=== PATIENT | male | born 1970 | race Caucasian/White ===

== ENCOUNTER 2016-12-03 23:11 | Emergency (ER) | payer MEDICAID ==
[2016-12-03 23:22] VITALS: BP 111/76; BMI 22.1
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
[2016-12-03] MEDS ORDERED: DUONEB 0.5 MG/3 MG NEB ONE (23:32)
[2016-12-03] MEDS ORDERED: SOLU-Medrol 125 MG VIAL IVP ONE (23:32)
[2016-12-03] MEDS ORDERED: NS 1000 ML 1,000 ML ONE (23:33)
[2016-12-03] MEDS ORDERED: SOLU-Medrol 125 MG VIAL ONE (23:35)
[2016-12-03] MEDS ORDERED: DUONEB 0.5 MG/3 MG ONE (23:37)
[2016-12-03] MEDS ORDERED: NS 1000 ML 1,000 ML IV SCH (23:45)
[2016-12-04] LABS: BLOOD UREA NITROGEN 9 mg/dL (7-18); CALCIUM 8.3 mg/dL (8.5-10.1); CARBON DIOXIDE 23.9 mmol/L (21-32); CHLORIDE 107 mmol/L (98-107); CREATININE 1.38 mg/dL (0.70-1.30); SODIUM 140 mmol/L (136-145); eGFR BLACK RACES > 60 (>60); eGFR NON BLACK RACES 59 (>60)
[2016-12-04 00:10] LABS: EOSINOPHILS # (AUTO) 0.3 x10^3/uL (0.0-0.2); HEMOGLOBIN 15.7 g/dL (13.5-18.0); LYMPHOCYTES # (AUTO) 1.8 X10^3/uL (1.3-2.9); MONOCYTES # (AUTO) 0.6 x10^3/uL (0.3-0.8); MONOCYTES % (AUTO) 12.9 % (0.0-13.0)
[2016-12-04 00:23] LABS: BASOPHILS # (AUTO) 0.1 X10^3/uL (0.0-0.1); BASOPHILS % (AUTO) 1.2 % (0.2-1.0); EOSINOPHILS % (AUTO) 7.2 % (0.9-2.9); LYMPHOCYTES % (AUTO) 39.9 % (21.0-51.0); MEAN CORPUSCULAR HEMOGLOBIN 31.3 pg (27.0-34.0); MEAN CORPUSCULAR VOLUME 89.5 fL (80.0-100.0); MEAN PLATELET VOLUME 8.7 fL (7.4-11.0); NEUTROPHILS # (AUTO) 1.8 x10^3/uL (2.2-4.8); NEUTROPHILS % (AUTO) 38.8 % (42.0-75.0); PLATELET COUNT 129 X10^3/uL (150.0-450.0); RED BLOOD COUNT 5.02 X10^6/uL (4.7-6.0); RED CELL DISTRIBUTION WIDTH 13.3 % (11.6-16.5); WHITE BLOOD COUNT 4.6 X10^3/uL (3.6-10.0)
[2016-12-04 00:36] LABS: PLATELET MORPHOLOGY COMMENT NORMAL (NORMAL)
--- NOTE | 2016-12-04 00:38 | RAD ---
Chest, one view Indication: Shortness of breath. Comparison: None available Findings: There is left lung volume loss with mild eventration of the hemidiaphragm. The heart size i s normal. No acute infiltrates or large effusion identified. Impression: No acute chest process. Chronic changes of the left lung. Reported By:
[2016-12-04] MEDS ORDERED: TORADOL 30 MG VIAL IVP ONE (01:16)
[2016-12-04] MEDS ORDERED: TORADOL 30 MG VIAL ONE (01:17)
== END 2016-12-04 01:30 | disposition home or self-care (01) ==
LOC: ER 23:11
DX: F41.8 Other specified anxiety disorders (principal); H60.313 Diffuse otitis externa, bilateral
CPT/HCPCS: 36415; 71010; 80048; 85025; 94640; 96365; 96367; 96374; 96375; 99283; A4222; J1885; J2930; J7620

== ENCOUNTER 2017-01-26 19:58 | Emergency (ER) | payer MEDICAID ==
[2017-01-26 20:16] VITALS: BP 113/75; BMI 22.8
[2017-01-26] MEDS ORDERED: KEFLEX CAP 500 MG PO ONE ×2 (21:23→21:31)
[2017-01-26] MEDS ORDERED: BACTRIM DS TAB PO ONE ×2 (21:23→21:32)
[2017-01-26] MEDS ORDERED: MOTRIN TAB 800 MG PO STA (21:24)
--- NOTE | 2017-01-26 21:29 | DR.GENAD ---
HPI - PCP Primary Care Physician: nfd - Complaint/Symptoms Chief Complaint Doctors Comments: Patient is complainig of nasal congestion, frontal headaches that goes and comes and his ears being sore with sores on his right ear for 3-4 weeks. states he was in the ER with ear problems a month ago and was given ear drops but they did not resolve the pain. states he goes to the HIV clinic in [place] and is taking Bactrim twice daily but ran out recently. He denies cold, cough, fever or chills. States he has a sore on his scrotums with pus coming out the lesion when he squeeze it. States he is taking Reyataz, Retinovir, and Truvada at the HIV clinic. States the pain is 9 of 10. Chief Complaint:: " headache that goes and comes back on right side. Ears hurt on both side and have when cleaned with q-tip there is puss on stick. Neck hurts constantly. Throat and inside mouth hurts on right side. Spot on left testicle - Nurses notes reviewed Nurses Notes Review: Yes - Source History Provided: Patient - Mode of Arrival Mode of Arrival: Ambulatory - Timing Onset of Chief Complaint: 01/25/17 Came on: Gradually - Duration Duration: Constant How lon Duration: Weeks - Location Location: right ear pain, scrotal pain - Severity Severity: Moderate - Modifying Factors Worsens:: movement Improves:: nothing PMH - PMH Past Medical History: Yes Past Medical History: Angina, Anxiety, Asthma, COPD, Depression, Migraines, Headaches, Hypertension Past Medical History Comment: Hep C Past Surgical History: Yes Surgical History: Other Past Surgical History Comment: tendon repaired - Family History History of Family Medical Conditions: Yes Family Medical History: Diabetes Mellitus, Cancer, [place] - Social History Does patient currently use any type of tobacco product: Yes Have you used tobacco products in the last 12 months: Yes Type of Tobacco Use: Cigarettes How many years tobacco product used: 15 Does any household member use tobacco: Yes Alcohol Use: None Do you use any recreational Drugs:: No Lives With: Alone Lives Where: Home - infectious screening In the last 2 months have you had wt loss of >10#?: YES Have you had fever, night sweats or hemotysis?: Yes Have you traveled outside the country in the last 6 months?: No Isolation: Contact ROS - Review of Systems Constitutional: No Symptoms Reported, Loss of Appetite. negative: See HPI, Chills, Diaphoresis, Fever, Malaise, Weakness, Irritable, Fatigue, Other Eyes: No Symptoms Reported, Eye Pain (right ear pain with cracking ear lobes). negative: See HPI, Blurred Vision, Tearing, Discharge, Photophobia, Diplopia, Other ENTM: No Symptoms Reported, Ear Pain, Nose Discharge, Nose Congestion Respiratoy: No Symptoms Reported. negative: See HPI, Productive Cough, Non- Productive Cough, Moist Cough, Dry Cough, Hacking Cough, Barking Cough, Brassy Cough, Orthopnea, Short of Breath, Stridor, Wheezing, Hemoptysis, Other Cardiovascular: No Symptoms Reported. negative: See HPI, Chest Pain, Edema, Palpitations, Syncope, Cyanosis, Skin Mottling, Other Gastrointestinal/Abdominal: No Symptoms Reported. negative: See HPI, Abdominal Pain, Constipation, Diarrhea, Nausea, Vomiting, Food Intolerance, Other Genitourinary: No Symptoms Reported. negative: See HPI, Discharge, Dysuria, Frequency, Hematuria, Pain, Bleeding, Other Neurological: No Symptoms Reported Musculoskeletal: No Symptoms Reported Integumentary: No Symptoms Reported, Lesions (right scrotum with 1 cm pustular; right ear with cracks tragus), Rash. negative: See HPI, Change in Color, Change in Hair/Nails, Dryness, Lumps, Itching, Wound, Bruises, Juandice, Other Hematologic/Lymphatic: No Symptoms Reported. negative: See HPI, Anemia, Blood Clots, Easy Bleeding, Easy Bruising, Swollen Glands, Lymphadenopathy, Other Endocrine: No Symptoms Reported Psychiatric: No Symptoms Reported. negative: See HPI, Anxiety, Depression, Hallucinations, Excessive crying, Suicidal, Other PE - Vital Signs Vitals: Temperature 98.7 F Pulse Rate 100 Respiratory Rate 22 Blood Pressure [Right Arm] 118/75 Blood Pressure [Left Arm] 110/75 Blood Pressure 113/75 O2 Sat by Pulse Oximetry 94 - General Limitations: No Limitations General Appearance: Alert, In No Apparent Distress - Head Head Exam: Normal Inspection, Atraumatic, Normocephalic - Eyes Eye exam: Normal Appearance, PERRL, EOMI. negative: Scleral Icterus, Conjunctival Injection, Nystagmus, Miosis, Mydrasis, Periorbital Swelling, Periorbital Tenderness, Other - ENT ENT Exam: Normal Exam, Normal Oropharynx, Normal External Ear Exam, Mucous Membranes Moist, TM's Normal Bilaterally (right tympanic dull, erythematous left TM) External Ear Exam: Pain with Movement, External Tenderness. negative: Normal External Inspection (right external ear with cracking, erythema; ), Auricular Trauma, Mastoid Tenderness, Periauricular Adenopathy TM/Canal Exam: Left Erythema, Left Effusion, Right Normal, Bilateral Canal Tenderness Nose Exam: Normal Nose Exam, Sinus Tenderness. negative: Nasal Deviation, Crepitus, Septal Hematoma, Laceration, Abrasion, Other Mouth Exam: Normal Inspection Throat Exam: Normal Inspection - Neck Neck Exam: Normal Inspection, Full ROM, Trachea Midline - Chest Chest Inspection: Normal Inspection, Symmetric Chest Wall Rise - Respiratory Respiratory Exam: Normal Lung Sounds Bilat Respiratory Exam: Bilateral Clear to Auscultation - Cardiovascular Cardiovascular Exam: Regular Rate, Normal Rhythm, Normal Heart Sounds. negative : Bradycardia, Tachycardia, Irregular Rhythm, Systolic Murmur, Diastolic Murmur , Rubs, Gallop, Clicks, JVD, +S1, +S2, +S3, +S4, Other - Abdominal Exam Abdominal Exam: Normal Inspection, Normal Bowel Sounds, Soft. negative: Distention, Tenderness, Guarding, Rebound, Rigidity, Dimnished Bowel Sounds, Hyperactive Bowel Sounds, Hypoactive Bowel Sounds, Organomegaly, Trauma, Incision, Ascites, Mass, Bruit, Pulsatile Mass, Hernia, Other Abdominal Tenderness: negative: RUQ, RLQ, LUQ, LLQ, Epigastrium, Suprapubic, Diffuse, Mild, Moderate, Severe, Other - Extremities Extremities Exam: Normal Inspection, Full ROM, Normal Capillary Refill. negative: Tenderness, Edema, Joint Swelling, Calf Tenderness - Back Back Exam: Normal Inspection, Full ROM. negative: Tenderness, (R) CVA Tenderness, (L) CVA Tenderness, Muscle Spasm, Paraspinal Tenderness, Vertebral Tenderness, Rashes, (R) Sciatic Notch Tenderness, (L) Sciatic Notch Tendern, (R ) Straight Leg Raise, (L) Straight Leg Raise, Other - Neurologic Neurological Exam: Alert, Oriented X3, CN II-XII Intact, Normal Gait, Reflexes Normal - Psychiatric Psychiatric Exam: Normal Affect, Normal Mood. negative: Depressed, Agitated, Anxious, Flat Affect, Manic, Homicidal Ideation, Suicidal Ideation, Other - Skin Skin Exam: Warm, Dry, Intact, Normal Color, Erythema (scrotal lesion; right ear with erythema) - Diagnosis Discharge Problem: Cellulitis, scrotum, History of HIV infection Otitis media Qualifiers: Laterality: left Sinusitis, acute Qualifiers: Sinusitis location: frontal - Discharge Plan Disposition: 01 HOME, SELF-CARE Condition: Stable Prescriptions: Cephalexin [KEFLEX CAP 500 MG *] 500 mg PO TID #30 cap Ibuprofen [MOTRIN TAB 800 MG *] 800 mg PO BID PRN #60 tab PRN Reason: Pain/Inflammation Mupirocin Oint [BACTROBAN OINT 2%] 1 applic EXT BID #22 gm Sulfamethoxazole-Trimethoprim [BACTRIM DS TAB 800/160 MG *] 1 tab PO BID #20 tab - Follow ups/Referrals Follow ups/Referrals: Estrella HERNANDEZ [Primary Care Provider] - 3 days JESSEE YU [STAFF PHYSICIAN] - 3 days - Instructions Instructions: Cellulitis, Adult, [id number], Otitis Media, Adult, Easy-to- Read, Sinusitis, Adult, [id number]
[2017-01-26] MEDS ORDERED: MOTRIN TAB 800 MG PO ONE (21:31)
== END 2017-01-26 21:45 | disposition home or self-care (01) ==
LOC: ER 19:58
DX: N49.2 Inflammatory disorders of scrotum (principal); B20 Human immunodeficiency virus [HIV] disease; H66.92 Otitis media, unspecified, left ear; J01.80 Other acute sinusitis
CPT/HCPCS: 99282

== ENCOUNTER → 2017-02-06 | Outpatient (CLI) | payer MEDICAID ==
[2017-01-26 20:16] VITALS: BP 113/75
[2017-02-06 23:46] LABS: ALANINE AMINOTRANSFERASE 52 Units/L (12-78); ALBUMIN 3.7 g/dL (3.4-5.0); ALKALINE PHOSPHATASE 127 Units/L (46-116); ASPARTATE AMINO TRANSFERASE 37 Units/L (15-37); BLOOD UREA NITROGEN 20 mg/dL (7-18); CALCIUM 9.7 mg/dL (8.5-10.1); CARBON DIOXIDE 29.4 mmol/L (21-32); CHLORIDE 102 mmol/L (98-107); CREATININE 1.22 mg/dL (0.70-1.30); MAGNESIUM 1.6 mg/dL (1.7-2.9); SODIUM 139 mmol/L (136-145); TOTAL PROTEIN 9.2 g/dL (6.4-8.2); eGFR BLACK RACES > 60 (>60); eGFR NON BLACK RACES > 60 (>60)
[2017-02-07 00:07] LABS: BASOPHILS # (AUTO) 0.1 X10^3/uL (0.0-0.1); BASOPHILS % (AUTO) 1.2 % (0.2-1.0); EOSINOPHILS # (AUTO) 0.2 x10^3/uL (0.0-0.2); EOSINOPHILS % (AUTO) 4.1 % (0.9-2.9); HEMATOCRIT 51.6 % (42.0-54.0); HEMOGLOBIN 17.9 g/dL (13.5-18.0); LYMPHOCYTES # (AUTO) 1.3 X10^3/uL (1.3-2.9); LYMPHOCYTES % (AUTO) 26.4 % (21.0-51.0); MEAN CORPUSCULAR HEMOGLOBIN 31.5 pg (27.0-34.0); MEAN CORPUSCULAR HGB CONC 34.6 g/dL (33.0-35.0); MEAN CORPUSCULAR VOLUME 90.9 fL (80.0-100.0); MEAN PLATELET VOLUME 8.5 fL (7.4-11.0); MONOCYTES # (AUTO) 0.4 x10^3/uL (0.3-0.8); NEUTROPHILS # (AUTO) 2.8 x10^3/uL (2.2-4.8); NEUTROPHILS % (AUTO) 59.3 % (42.0-75.0); PLATELET COUNT 160 X10^3/uL (150.0-450.0); RED BLOOD COUNT 5.68 X10^6/uL (4.7-6.0); RED CELL DISTRIBUTION WIDTH 12.8 % (11.6-16.5); WHITE BLOOD COUNT 4.8 X10^3/uL (3.6-10.0)
--- NOTE | 2017-02-07 07:35 | RAD ---
Examination: Cervical spine, five views History: Chronic neck and back pain Findings: There is significant degenerative disc narrowing at C5-6-7. There is a large anterior osteo phyte at C6-7. Alignment of vertebrae is normal. No fracture or bone destruction is noted. Arthritic deformity involves the lower uncinate processes bilaterally. This results in moderate neural foramen narrowing bilaterally, at multiple levels. The odontoid is intact. Impression: 1. Multilevel degenerative disc disease, spondylosis and neural foramen narrowing, most severe at C5- 6-7. Osteoarthritic involvement of the uncovertebral joints results in narrowing of bilateral neural foramina. No acute features identified. Reported By:
[2017-02-11 06:36] LABS: HEPATITIS A ANTIBODY IGM Equivocal (Negative); HEPATITIS B CORE IGM Negative (Negative); HEPATITIS B SURFACE ANTIGEN Negative (Negative)
== END ==
LOC: LAB 22:24
PROVIDERS: ATTEND Nurse Practitioner Family
DX: B20 Human immunodeficiency virus [HIV] disease (principal); Z86.19 Personal history of other infectious and parasitic diseases; M50.322 Other cervical disc degeneration at C5-C6 level; M50.323 Other cervical disc degeneration at C6-C7 level; R25.2 Cramp and spasm
CPT/HCPCS: 36415; 72050; 80053; 80074; 83735; 85025; 87536

== ENCOUNTER 2017-03-16 14:28 | Emergency (ER) | payer MEDICAID ==
[2017-03-16 14:40] VITALS: BP 119/66; BMI 22.1
--- NOTE | 2017-03-16 16:05 | DR.SEIZA ---
HPI - Primary Care Physician Primary Care Physician: JONI - Complaints Chief Complaint:: PATIENT THINKS HE HAD A SEIZURE BUT HE AINT FOR SURE. HE TAKE TOPAMAX FOR THEM BUT HAS NOT HAD ANY MEDS IN 3 WEEKS. - Source History Provided: Patient - Mode of Arrival Mode of Arrival: EMS - Timing Onset of Chief Complaint: 03/16/17 PMH - PMH Past Medical History: Yes Past Medical History: Angina, Anxiety, Asthma, COPD, Depression, Migraines, Headaches, Hypertension Past Medical History Comment: HEPITITS C AND HIV Past Surgical History: Yes Surgical History: Other - Family History History of Family Medical Conditions: Yes Family Medical History: Diabetes Mellitus, Cancer, [place] - Social History Does patient currently use any type of tobacco product: Yes Have you used tobacco products in the last 12 months: Yes Type of Tobacco Use: Cigarettes How many years tobacco product used: 30 Does any household member use tobacco: Yes Alcohol Use: None Do you use any recreational Drugs:: Yes (THC) Lives With: Family Lives Where: Home - infectious screening In the last 2 months have you had wt loss of >10#?: NO Have you had fever, night sweats or hemotysis?: No Have you traveled outside the country in the last 6 months?: No Isolation: Standard PE - Vital Signs Vitals: Temperature 98.9 F Pulse Rate 94 Respiratory Rate 18 Blood Pressure [Right Arm] 118/75 Blood Pressure [Left Arm] 110/75 Blood Pressure 119/66 O2 Sat by Pulse Oximetry 96 - Discharge Plan Condition: Stable - Follow ups/Referrals Follow ups/Referrals: NFD,None [Primary Care Provider] - 3 days - Instructions
== END 2017-03-16 16:25 | disposition left against medical advice (07) ==
LOC: ER 14:28
DX: R56.9 Unspecified convulsions (principal)
CPT/HCPCS: 99281

== ENCOUNTER → 2017-04-23 | Outpatient (CLI) | payer MEDICAID ==
--- NOTE | 2017-04-23 16:20 | RAD ---
ELBOW RADIOGRAPHS CLINICAL HISTORY: 46-year-old male with left elbow pain. COMPARISON: None. FINDINGS: 3 views of the left elbow demonstrate no acute fracture or malalignment. The joint spaces are maintained. There is no joint effusion. The mineralization is normal. There is no aggressive glo ne lesion or abnormal periosteal reaction. There is no soft tissue calcification or gas. IMPRESSION: No acute fracture or osseous abnormality demonstrated on left elbow radiographs. Reported By:
== END ==
LOC: RAD 15:38
PROVIDERS: ATTEND Nurse Practitioner Family
DX: M65.822 Other synovitis and tenosynovitis, left upper arm (principal)
CPT/HCPCS: 73070

== ENCOUNTER 2017-05-06 10:38 | Emergency (ER) | payer MEDICAID ==
[2017-05-06 10:43] VITALS: BP 109/69; BMI 22.8
[2017-05-06] MEDS ORDERED: TORADOL 30 MG VIAL IM ONE (11:10)
[2017-05-06] MEDS ORDERED: DECADRON INJ IM ONE (11:12)
[2017-05-06] MEDS ORDERED: DECADRON INJ ONE (11:14)
[2017-05-06] MEDS ORDERED: TORADOL 30 MG VIAL ONE (11:14)
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
--- NOTE | 2017-05-06 12:06 | CT ---
HISTORY: Neck pain after fall Study: CT cervical spine without contrast Comparison: None Technique: Multiple axial images of the cervical spine were obtained from the skull base to the thora cic inlet without administration of IV contrast. Sagittal and coronal reformats were performed and r eviewed. Dose reduction techniques including Automated Exposure Control (AEC) and adjustment of mA an d kV were utilized. Findings: There is nonspecific cervical straightening. Vertebral body heights are preserved. There is degenerat quiana disc space narrowing and bilateral uncovertebral spurring at C5-C6 and C6-C7 resulting in foramin al narrowing. Mild facet degenerative changes are also noted bilaterally. No evidence of acute fract ure or dislocation. The odontoid process and occipital condyles are intact. There are paraseptal emphysematous changes and subpleural fibrotic scarring seen in the bilateral abhishek g apices. The surrounding soft tissues appear intact. IMPRESSION: 1. Degenerative changes as described without acute osseous abnormality. Reported By:
--- NOTE | 2017-05-06 12:13 | VAS ---
HISTORY: Right upper extremity swelling Study: Right upper extremity venous Doppler evaluation Comparison: None Technique: Multiple grayscale sonographic images were obtained. Color duplex Doppler evaluation was p erformed. Findings: The right jugular vein is patent. The right subclavian vein is patent. The right axillary vein, right brachial vein, and right basilic veins are patent demonstrating no evidence for thrombus. The exam i s negative for deep venous thrombosis in the right upper extremity. IMPRESSION: Exam negative for deep venous thrombosis Reported By:
== END 2017-05-06 12:32 | disposition home or self-care (01) ==
LOC: ER 10:54
DX: S10.93XA Contusion of unspecified part of neck, initial encounter (principal); W19.XXXA Unspecified fall, initial encounter; Y92.9 Unspecified place or not applicable
CPT/HCPCS: 72125; 93971; 96372; 99282; J1100; J1885

== ENCOUNTER 2017-05-15 21:56 | Emergency (ER) | payer MEDICAID ==
[2017-05-15 22:01] VITALS: BMI 24.3
[2017-05-15] MEDS ORDERED: MOTRIN TAB 800 MG PO ONE ×2 (22:31→22:33)
[2017-05-15] MEDS ORDERED: TYLENOL 500 MG TAB EXTRA STRENGTH PO ONE ×2 (22:31→22:32)
--- NOTE | 2017-05-15 22:48 | DR.GENAD ---
HPI - Complaint/Symptoms Chief Complaint Doctors Comments: multiple complaints including flu-like symptoms, left sided abd pain, abscess on buttocks, all beginning today. No hx trauma, + fevers today Chief Complaint:: PT C/O FEVER, COUGH, CONGESTION, BODYACHES. ONSET THIS AM. ALSO C/O PAIN ON HIS LT RIB CAGE Self Treatment fo Chief Complaint: TYLENOL AT HOME LAST DOSE 1600 - Source History Provided: Patient - Mode of Arrival Mode of Arrival: Ambulatory - Timing Onset of Chief Complaint: 05/15/17 PMH - PMH Past Medical History: Yes Past Medical History: Angina, Anxiety, Asthma, COPD, Depression, Migraines, Headaches, Hypertension Past Medical History Comment: pt has been told he has hepatitis and HIV but he' s not sure. Pt not a good historian Past Surgical History: Yes Surgical History: Other - Family History History of Family Medical Conditions: Yes Family Medical History: Diabetes Mellitus, Cancer, [place] - Social History Do you use any recreational Drugs:: No - infectious screening Have you traveled outside the country in the last 6 months?: No ROS - Review of Systems Constitutional: Chills, Fever, Malaise, Weakness, Fatigue Eyes: No Symptoms Reported ENTM: No Symptoms Reported Respiratoy: No Symptoms Reported Cardiovascular: No Symptoms Reported Gastrointestinal/Abdominal: Abdominal Pain Genitourinary: No Symptoms Reported Neurological: Headache, Paresthesia (chronic parathesias UE's due to neck disk problems), Tingling Musculoskeletal: Joint Pain, Muscle Pain, Neck Pain Integumentary: No Symptoms Reported, Lesions (lesion on left sie of rectum) Endocrine: No Symptoms Reported Psychiatric: No Symptoms Reported All Other Systems: Reviewed and Negative PE - Vital Signs Vitals: Temperature 102.4 F Pulse Rate 97 Respiratory Rate 18 Blood Pressure [Right Arm] 118/75 Blood Pressure [Left Arm] 110/75 Blood Pressure 155/83 O2 Sat by Pulse Oximetry 98 - General Limitations: No Limitations General Appearance: Alert, In No Apparent Distress - Head Head Exam: Normal Inspection, Normocephalic - Eyes Eye exam: Normal Appearance. negative: Scleral Icterus - ENT ENT Exam: Normal Exam Throat Exam: Normal Inspection - Neck Neck Exam: Normal Inspection, Full ROM, Trachea Midline, Tenderness. negative: Meningismus, Lymphadenopathy - Chest Chest Inspection: Normal Inspection - Respiratory Respiratory Exam: Normal Lung Sounds Bilat Respiratory Exam: Bilateral Clear to Auscultation - Cardiovascular Cardiovascular Exam: Regular Rate, Normal Rhythm, Normal Heart Sounds - Abdominal Exam Abdominal Exam: Normal Inspection, Normal Bowel Sounds, Soft, Tenderness ( tender on left side, nothing focal, bowel sounds normal). negative: Distention , Guarding, Rebound, Rigidity, Mass - Extremities Extremities Exam: Normal Inspection, Full ROM - Back Back Exam: negative: (R) CVA Tenderness, (L) CVA Tenderness - Neurologic Neurological Exam: Alert, Oriented X3 - Psychiatric Psychiatric Exam: Normal Affect, Normal Mood - Skin Skin Exam: Other (2x2cm perirectal abscess on left(explained to pt this should be tx'd by surgery as it is perirectal) ROR - Labs Reviewed Laboratory Results Reviewed?: Yes Result Diagrams: 05/15/17 22:52 05/15/17 22:52 Laboratory: WBC 7.0 X10^3/uL (3.6-10.0) 05/15/17 22:52 RBC 4.88 X10^6/uL (4.7-6.0) 05/15/17 22:52 Hgb 15.4 g/dL (13.5-18.0) 05/15/17 22:52 Hct 43.3 % (42.0-54.0) 05/15/17 22:52 MCV 88.7 fL (80.0-100.0) 05/15/17 22:52 MCH 31.5 pg (27.0-34.0) 05/15/17 22:52 MCHC 35.5 g/dL (33.0-35.0) H 05/15/17 22:52 RDW 13.9 % (11.6-16.5) 05/15/17 22:52 Plt Count 155 X10^3/uL (150.0-450.0) 05/15/17 22:52 MPV 7.4 fL (7.4-11.0) 05/15/17 22:52 Neut % 72.8 % (42.0-75.0) 05/15/17 22:52 Lymph % 17.1 % (21.0-51.0) L 05/15/17 22:52 [place] % 7.5 % (0.0-13.0) 05/15/17 22:52 Eos % 1.3 % (0.9-2.9) 05/15/17 22:52 Baso % 1.3 % (0.2-1.0) H 05/15/17 22:52 Neut # 5.1 x10^3/uL (2.2-4.8) H 05/15/17 22:52 Lymph # 1.2 X10^3/uL (1.3-2.9) L 05/15/17 22:52 [place] # 0.5 x10^3/uL (0.3-0.8) 05/15/17 22:52 Eos # 0.1 x10^3/uL (0.0-0.2) 05/15/17 22:52 Baso # 0.1 X10^3/uL (0.0-0.1) 05/15/17 22:52 Absolute Nucleated RBC 0.0 /100WBC 05/15/17 22:52 Sodium 135 mmol/L (136-145) L 05/15/17 22:52 Corrected Sodium TNP 05/15/17 22:52 Potassium 3.7 mmol/L (3.5-5.1) 05/15/17 22:52 Chloride 102 mmol/L (98-107) 05/15/17 22:52 Carbon Dioxide 24.0 mmol/L (21-32) 05/15/17 22:52 BUN 21 mg/dL (7-18) H 05/15/17 22:52 Creatinine 1.37 mg/dL (0.70-1.30) H 05/15/17 22:52 Est GFR (MDRD) Af Amer > 60 (>60) 05/15/17 22:52 Est GFR (MDRD) Non-Af 59 (>60) 05/15/17 22:52 Glucose 98 mg/dL (65-99) 05/15/17 22:52 Calcium 8.2 mg/dL (8.5-10.1) L 05/15/17 22:52 Corrected Calcium 8.8 mg/dL (8.5-10.1) 05/15/17 22:52 Total Bilirubin 0.70 mg/dL (0.2-1.0) 05/15/17 22:52 AST 33 Units/L (15-37) 05/15/17 22:52 ALT 39 Units/L (12-78) 05/15/17 22:52 Alkaline Phosphatase 104 Units/L (46-116) 05/15/17 22:52 Total Protein 7.8 g/dL (6.4-8.2) 05/15/17 22:52 Albumin 3.2 g/dL (3.4-5.0) L 05/15/17 22:52 Globulin 4.6 g/dL (2.5-4.5) H 05/15/17 22:52 Albumin/Globulin Ratio 0.7 Ratio (1.1-2.1) L 05/15/17 22:52 Amylase 78 Units/L (25-115) 05/15/17 22:52 Lipase 114 Units/L (73-393) 05/15/17 22:52 Influenza Type A (PCR) Negative (NEGATIVE) 05/15/17 22:07 Influenza Type B (PCR) Negative (NEGATIVE) 05/15/17 22:07 S. pyogenes (TEM-PCR) Not detected (NOT DETECT) 05/15/17 22:07 - XRAY XRAY Interpreted by: Radiologist XRAY Findings: nothing acute seen on AAS - Diagnosis Discharge Problem: Viral syndrome, Gabriela-rectal abscess - Discharge Plan Disposition: 01 HOME, SELF-CARE Condition: Stable - Follow ups/Referrals Follow ups/Referrals: DAMIAN QUINONES [Primary Care Provider] - 3 days - Instructions Additional Notes - Additional Notes Additional Notes: pt urged to f/u surgery for tx of perirectal abscess. will start keflex. pt urged to use ibuprofen for fever control, push PO fluids for flu like illness
[2017-05-15] MEDS ORDERED: TORADOL 30 MG VIAL IM ONE (23:07)
[2017-05-15 23:11] LABS: ALANINE AMINOTRANSFERASE 39 Units/L (12-78); ALBUMIN 3.2 g/dL (3.4-5.0); ALKALINE PHOSPHATASE 104 Units/L (46-116); AMYLASE 78 Units/L (25-115); ASPARTATE AMINO TRANSFERASE 33 Units/L (15-37); BLOOD UREA NITROGEN 21 mg/dL (7-18); CALCIUM 8.2 mg/dL (8.5-10.1); CHLORIDE 102 mmol/L (98-107); COR CA(FOR HYPOALB) 8.8 mg/dL (8.5-10.1); CREATININE 1.37 mg/dL (0.70-1.30); LIPASE 114 Units/L (73-393); SODIUM 135 mmol/L (136-145); TOTAL PROTEIN 7.8 g/dL (6.4-8.2); eGFR BLACK RACES > 60 (>60); eGFR NON BLACK RACES 59 (>60)
[2017-05-15 23:13] LABS: BASOPHILS # (AUTO) 0.1 X10^3/uL (0.0-0.1); BASOPHILS % (AUTO) 1.3 % (0.2-1.0); EOSINOPHILS # (AUTO) 0.1 x10^3/uL (0.0-0.2); EOSINOPHILS % (AUTO) 1.3 % (0.9-2.9); HEMATOCRIT 43.3 % (42.0-54.0); HEMOGLOBIN 15.4 g/dL (13.5-18.0); LYMPHOCYTES # (AUTO) 1.2 X10^3/uL (1.3-2.9); LYMPHOCYTES % (AUTO) 17.1 % (21.0-51.0); MEAN CORPUSCULAR HEMOGLOBIN 31.5 pg (27.0-34.0); MEAN CORPUSCULAR HGB CONC 35.5 g/dL (33.0-35.0); MEAN CORPUSCULAR VOLUME 88.7 fL (80.0-100.0); MEAN PLATELET VOLUME 7.4 fL (7.4-11.0); MONOCYTES # (AUTO) 0.5 x10^3/uL (0.3-0.8); MONOCYTES % (AUTO) 7.5 % (0.0-13.0); NEUTROPHILS # (AUTO) 5.1 x10^3/uL (2.2-4.8); NEUTROPHILS % (AUTO) 72.8 % (42.0-75.0); PLATELET COUNT 155 X10^3/uL (150.0-450.0); RED BLOOD COUNT 4.88 X10^6/uL (4.7-6.0); RED CELL DISTRIBUTION WIDTH 13.9 % (11.6-16.5)
--- NOTE | 2017-05-15 23:16 | RAD ---
ACUTE ABDOMINAL SERIES CLINICAL HISTORY: 46-year-old male with body aches and fever. History of asthma and COPD. COMPARISON: Abdominal radiographs 07/18/2012, chest radiograph 12/03/2016. FINDINGS: Stable cardiomegaly with mild elevation of left hemidiaphragm and prominent interstitium/perihilar elton ng markings consistent with history. There is no focal consolidation, pleural effusion or pneumothora x. Pulmonary vascularity is normal. Abdominal radiographs demonstrate a nonobstructive bowel gas pattern. Gas and stool are seen througho ut the colon. There is no small bowel distention. There is no radiographic evidence of pneumoperitone um. Imaged osseous structures are intact. Soft tissues are unremarkable. IMPRESSION: 1. No acute cardiopulmonary process. 2. Nonobstructive bowel gas pattern without radiographic evidence of pneumoperitoneum. Reported By:
[2017-05-15] MEDS ORDERED: TORADOL 60 MG VIAL ONE (23:30)
[2017-05-15 23:52] VITALS: BP 145/79
== END 2017-05-15 23:50 | disposition home or self-care (01) ==
LOC: ER 22:07
DX: K61.1 Rectal abscess (principal); B97.89 Other viral agents as the cause of diseases classified elsewhere
CPT/HCPCS: 36415; 74022; 80053; 82150; 83690; 85025; 87502; 87651; 96372; 99282; 99283; J1885

== ENCOUNTER 2017-05-17 11:58 | Inpatient (IN) | payer MEDICAID ==
[2017-05-17] MEDS ORDERED: MORPHINE SULFATE INJ 2 MG INJ IVP PRN (13:13)
[2017-05-17 13:45] VITALS: BMI 24.3
[2017-05-17] MEDS ORDERED: FLUVIRIN IM ONE (13:45)
[2017-05-17] MEDS ORDERED: PREVNAR 13 IM ONE (13:45)
[2017-05-17] MEDS: NS 1000 ML 1,000 ML IV SCH (13:47)
[2017-05-17 13:52] LABS: ALANINE AMINOTRANSFERASE 26 Units/L (12-78); ALKALINE PHOSPHATASE 99 Units/L (46-116); ASPARTATE AMINO TRANSFERASE 25 Units/L (15-37); BLOOD UREA NITROGEN 23 mg/dL (7-18); CALCIUM 8.2 mg/dL (8.5-10.1); CARBON DIOXIDE 25.2 mmol/L (21-32); CHLORIDE 104 mmol/L (98-107); COR NA(FOR HYPERGLY) 138 mmol/L (136-145); CREATININE 0.98 mg/dL (0.70-1.30); SODIUM 137 mmol/L (136-145); TOTAL PROTEIN 7.3 g/dL (6.4-8.2); eGFR BLACK RACES > 60 (>60); eGFR NON BLACK RACES > 60 (>60)
[2017-05-17] MEDS ORDERED: PHARMACY CONSULT - VANCOMYCIN XX SCH (14:00)
[2017-05-17] MEDS ORDERED: BACITRACIN VIAL ONE (14:41)
--- NOTE | 2017-05-17 14:42 | DR.H&P ---
H&P - History & Physical for Day of: H&P Date: 05/17/17 - Chief Complaint Chief Complaint: ABSCESS TO BUTTOCKS AND SEVERAL RECTAL AND PAIN TO SCROTUM - Allergies Allergies/Adverse Reactions: Allergies Allergy/AdvReac Type Severity Reaction Status Date / Time diphenhydramine Allergy Verified 05/06/17 10:43 Penicillins Allergy Verified 05/06/17 10:43 tramadol Allergy Verified 05/06/17 10:43 - History of Present Illness History of Present Illness: PT IS 46 WM DIRECT ADMIT FROM DR LORENZO OFFICE WITH ABSCESS TO BUTTOCKS AND BRYAN-RECTAL WITH CELLULITIS TO EXTENDING TO SCROTUM. PT WAS PREVIOUSLY SEEN IN THE ER AND GIVEN PO DOXY. PT HAS HAD FEVER AND COLD CHILLS WITH NAUSEA. PT HAS PMH OF HIV, HEP, OA, LILLI - Past Medical History Past Medical History: Angina, Anxiety, Asthma, COPD, Depression, Migraines, Headaches, Hypertension - Past Surgical History Surgical History: Other - Family History Family Medical History: Diabetes Mellitus, Cancer, [place] - Social History Does patient currently use any type of tobacco product: Yes Have you used tobacco products in the last 12 months: Yes Type of Tobacco Use: Cigarettes How many years tobacco product used: 25 Does any household member use tobacco: Yes Alcohol Use: None Drug Use: None - Review of Systems Constitutional: Fever, Chills Eyes: No Symptoms Reported ENT: No Symptoms Reported Respiratory: No Symptoms Reported Cardiovascular: No Symptoms Reported Gastrointestinal: Nausea, Abdominal Pain Genitourinary: No Symptoms Reported Musculoskeletal: Hand Pain Skin: Wound Neurological: No Symptoms Reported - Physical Exam Vital Signs: Blood Pressure [Right Arm] 145/79 Blood Pressure [Left Arm] 110/75 Blood Pressure 145/79 Oriented: Normal Eyes: Normal Ear: Normal Nose: Normal Throat: Normal Respiratory: RLL Diminished, LLL Diminished Cardiovascular: Normal : Normal Auscultation: Bowel Sounds: Normal Palpation: Normal Tenderness: Normal Skin: Red, Tender (LOCALIZED TO RIGHT BUTTOCKS, BRYAN RECTAL, SCROTUM), Hot Musculoskeletal: Back:Lumbar Psychiatric: Anxiety Affect: Anxious Speech Pattern: Clear, Appropriate - Assessment/Plan (1) Bryan-rectal abscess Status: Acute Plan: ADMIT, IV ATBX BLOOD CULTURES. CBC CMP ON ADMISSION, PAIN CONTROL. SURGICAL CONSULT FOR I & D (2) LILLI (generalized anxiety disorder) Status: Acute (3) Arthritis Status: Acute (4) HIV disease Status: Acute
[2017-05-17] MEDS ORDERED: LR 1000 ML IV 1,000 ML IV ONE (14:46)
[2017-05-17] MEDS ORDERED: PNEUMOVAX 23 IM ONE (15:00)
[2017-05-17] MEDS ORDERED: ANCEF 1 GM IV PREMIX* 1 GM/50 ML BAG IV ONE (15:02)
[2017-05-17] MEDS ORDERED: FLAGYL IV PREMIX 500 MG BAG 500 MG/100 ML BAG IV ONE (15:03)
[2017-05-17] MEDS ORDERED: LEVAQUIN PREMIX IV 500 MG 500 MG/100 ML BAG IV ONE (15:03)
[2017-05-17] MEDS ORDERED: FENTANYL INJ 100 mcg ONE (15:04)
[2017-05-17] MEDS ORDERED: NS IRRIGATION 1000 ML 1,000 ML with BACITRACIN VIAL 50,000 UNT IR ONE ×2 (15:09)
[2017-05-17] MEDS ORDERED: XYLOCAINE 1 % (PLAIN) ONE (15:14)
[2017-05-17] MEDS ORDERED: XYLOCAINE 2 % (PLAIN) ONE (15:27)
[2017-05-17] MEDS ORDERED: DIPRIVAN VIAL ONE (15:27)
[2017-05-17] MEDS ORDERED: VERSED ONE (15:27)
--- NOTE | 2017-05-17 15:30 | US ---
History: Scrotal edema Study: Scrotal ultrasound Comparison: January 02, 2014 Findings: The right testicle measures 4.08 x 1.65 x 2.57 cm without mass. The epididymis is unremarka ble. The left testicle measures 3.76 x 1.43 x 2.77 cm. No definite left testicular mass is demonstrated. There is no hydrocele. There is good color Doppler is blood flow to each testicle. No scrotal mass is demonstrated. Impression: Negative Reported By:
[2017-05-17 15:42] LABS: BASOPHILS % (AUTO) 0.3 % (0.2-1.0); EOSINOPHILS # (AUTO) 0.2 x10^3/uL (0.0-0.2); EOSINOPHILS % (AUTO) 1.3 % (0.9-2.9); HEMATOCRIT 41.1 % (42.0-54.0); HEMOGLOBIN 14.4 g/dL (13.5-18.0); LYMPHOCYTES # (AUTO) 1.3 X10^3/uL (1.3-2.9); LYMPHOCYTES % (AUTO) 11.2 % (21.0-51.0); MEAN CORPUSCULAR HEMOGLOBIN 31.2 pg (27.0-34.0); MEAN CORPUSCULAR VOLUME 89.3 fL (80.0-100.0); MONOCYTES # (AUTO) 0.8 x10^3/uL (0.3-0.8); MONOCYTES % (AUTO) 6.6 % (0.0-13.0); NEUTROPHILS # (AUTO) 9.3 x10^3/uL (2.2-4.8); NEUTROPHILS % (AUTO) 80.6 % (42.0-75.0); PLATELET COUNT 112 X10^3/uL (150.0-450.0); RED CELL DISTRIBUTION WIDTH 13.6 % (11.6-16.5); WHITE BLOOD COUNT 11.5 X10^3/uL (3.6-10.0)
--- NOTE | 2017-05-17 16:11 | OR.GENERIC ---
Post-Op Note Generic - Post-Op Note Operative Report: PO note : I & D of bilateral jonatan anal abscesses was done . irrigation and packing with Iodoform packing. finding abscesses and assiciated ccellulitis .. same IV vancomycin , Sitzbath and local care . future colonoscopy ..
--- NOTE | 2017-05-17 17:33 | US ---
History: Perirectal abscess Study: Ultrasound of buttocks Subcutaneously in the left buttock is an fluid collection measuring 3.4 cm width and 1.5 cm AP diamet er with internal debris. In the right buttock is a subcutaneous 1.5 by 1 cm irregular fluid collectio n. Impression: Bilateral subcutaneous buttock fluid collections compatible with abscesses, left larger than right. Reported By:
[2017-05-17] MEDS: DILAUDID INJ IVP SCH ×2 (18:16→21:30)
[2017-05-17] MEDS: VANCOMYCIN HCL 1 GM VIAL 1 GM in NS 250 ML IV 250 ML IV SCH (21:30)
[2017-05-17] MEDS: VALIUM PO PRN (22:40)
[2017-05-18] MEDS: NS 1000 ML 1,000 ML IV SCH ×2 (03:08→22:15)
[2017-05-18] MEDS: DILAUDID INJ IVP PRN ×3 (03:08→20:22)
[2017-05-18 06:57] LABS: BASOPHILS % (AUTO) 0.4 % (0.2-1.0); EOSINOPHILS # (AUTO) 0.2 x10^3/uL (0.0-0.2); EOSINOPHILS % (AUTO) 2.4 % (0.9-2.9); HEMATOCRIT 38.2 % (42.0-54.0); HEMOGLOBIN 13.5 g/dL (13.5-18.0); LYMPHOCYTES # (AUTO) 1.8 X10^3/uL (1.3-2.9); LYMPHOCYTES % (AUTO) 19.9 % (21.0-51.0); MEAN CORPUSCULAR HEMOGLOBIN 31.6 pg (27.0-34.0); MEAN CORPUSCULAR HGB CONC 35.4 g/dL (33.0-35.0); MEAN PLATELET VOLUME 8.3 fL (7.4-11.0); MONOCYTES # (AUTO) 0.7 x10^3/uL (0.3-0.8); MONOCYTES % (AUTO) 7.3 % (0.0-13.0); NEUTROPHILS # (AUTO) 6.5 x10^3/uL (2.2-4.8); PLATELET COUNT 118 X10^3/uL (150.0-450.0); RED BLOOD COUNT 4.29 X10^6/uL (4.7-6.0); RED CELL DISTRIBUTION WIDTH 13.6 % (11.6-16.5); WHITE BLOOD COUNT 9.3 X10^3/uL (3.6-10.0)
[2017-05-18 07:10] LABS: ALANINE AMINOTRANSFERASE 25 Units/L (12-78); ALBUMIN 2.6 g/dL (3.4-5.0); ALKALINE PHOSPHATASE 89 Units/L (46-116); ASPARTATE AMINO TRANSFERASE 23 Units/L (15-37); BLOOD UREA NITROGEN 22 mg/dL (7-18); CALCIUM 7.5 mg/dL (8.5-10.1); CARBON DIOXIDE 21.6 mmol/L (21-32); CHLORIDE 101 mmol/L (98-107); COR CA(FOR HYPOALB) 8.6 mg/dL (8.5-10.1); CREATININE 1.01 mg/dL (0.70-1.30); SODIUM 133 mmol/L (136-145); TOTAL PROTEIN 6.9 g/dL (6.4-8.2); eGFR BLACK RACES > 60 (>60); eGFR NON BLACK RACES > 60 (>60)
[2017-05-18] MEDS: VANCOMYCIN HCL 1 GM VIAL 1 GM in NS 250 ML IV 250 ML IV SCH ×2 (09:03→20:21)
--- NOTE | 2017-05-18 09:48 | DR.PROGNOT ---
Hospital Progress Notes - Progress Note for Day of: Progress Note Date: 05/18/17 - Chief Complaint Chief Complaint: having only mild drainage . c/o incisional pain ,. having low grade fever - Past Medical Family Social History Past Med/Fam/Surg Hx: No changes since H&P Allergies: Allergies diphenhydramine Allergy (Verified 05/06/17 10:43) Penicillins Allergy (Verified 05/06/17 10:43) tramadol Allergy (Verified 05/06/17 10:43) - Vital Signs Vital Signs: Temperature 99.0 F Pulse Rate [Right Brachial] 76 Respiratory Rate 20 Blood Pressure [Right Arm] 94/62 Blood Pressure [Left Arm] 110/75 Blood Pressure 145/79 O2 Sat by Pulse Oximetry 92 - Physical Exam Oriented: Normal Eyes: Normal Ear: Normal Nose: Normal Throat: Normal Cardiovascular: Normal : Normal GI:Auscultation: Normal GI:Palpation: Normal GI: Tenderness: Normal Skin: Red, Tender (LOCALIZED TO RIGHT BUTTOCKS, PERINEUM and SCROTUM), Hot Musculoskeletal: Back:Lumbar Psychiatric: Anxiety Affect: Anxious Speech Pattern: Clear - Laboratory and Diagnostics Result Diagrams: 05/18/17 06:00 05/18/17 06:00 Labs: 05/17/17 15:44 Buttock Gram Stain - Final 05/17/17 15:44 Buttock Wound Culture - Preliminary 05/17/17 15:44 Buttock Gram Stain - Final 05/17/17 15:44 Buttock Wound Culture - Preliminary Laboratory WBC 9.3 X10^3/uL (3.6-10.0) 05/18/17 06:00 RBC 4.29 X10^6/uL (4.7-6.0) L 05/18/17 06:00 Hgb 13.5 g/dL (13.5-18.0) 05/18/17 06:00 Hct 38.2 % (42.0-54.0) L 05/18/17 06:00 MCV 89.0 fL (80.0-100.0) 05/18/17 06:00 MCH 31.6 pg (27.0-34.0) 05/18/17 06:00 MCHC 35.4 g/dL (33.0-35.0) H 05/18/17 06:00 RDW 13.6 % (11.6-16.5) 05/18/17 06:00 Plt Count 118 X10^3/uL (150.0-450.0) L 05/18/17 06:00 MPV 8.3 fL (7.4-11.0) 05/18/17 06:00 Neut % 70.0 % (42.0-75.0) 05/18/17 06:00 Lymph % 19.9 % (21.0-51.0) L 05/18/17 06:00 [place] % 7.3 % (0.0-13.0) 05/18/17 06:00 Eos % 2.4 % (0.9-2.9) 05/18/17 06:00 Baso % 0.4 % (0.2-1.0) 05/18/17 06:00 Neut # 6.5 x10^3/uL (2.2-4.8) H 05/18/17 06:00 Lymph # 1.8 X10^3/uL (1.3-2.9) 05/18/17 06:00 [place] # 0.7 x10^3/uL (0.3-0.8) 05/18/17 06:00 Eos # 0.2 x10^3/uL (0.0-0.2) 05/18/17 06:00 Baso # 0.0 X10^3/uL (0.0-0.1) 05/18/17 06:00 Absolute Nucleated RBC 0.0 /100WBC 05/18/17 06:00 ESR 16 MM/HOUR (0-15) H 05/17/17 13:31 Sodium 133 mmol/L (136-145) L 05/18/17 06:00 Corrected Sodium TNP 05/18/17 06:00 Potassium 3.9 mmol/L (3.5-5.1) 05/18/17 06:00 Chloride 101 mmol/L (98-107) 05/18/17 06:00 Carbon Dioxide 21.6 mmol/L (21-32) 05/18/17 06:00 BUN 22 mg/dL (7-18) H 05/18/17 06:00 Creatinine 1.01 mg/dL (0.70-1.30) 05/18/17 06:00 Est GFR (MDRD) Af Amer > 60 (>60) 05/18/17 06:00 Est GFR (MDRD) Non-Af > 60 (>60) 05/18/17 06:00 Glucose 85 mg/dL (65-99) 05/18/17 06:00 Calcium 7.5 mg/dL (8.5-10.1) L 05/18/17 06:00 Corrected Calcium 8.6 mg/dL (8.5-10.1) 05/18/17 06:00 Total Bilirubin 0.60 mg/dL (0.2-1.0) 05/18/17 06:00 AST 23 Units/L (15-37) 05/18/17 06:00 ALT 25 Units/L (12-78) 05/18/17 06:00 Alkaline Phosphatase 89 Units/L (46-116) 05/18/17 06:00 C-Reactive Protein 84.50 mg/L (0-3.0) H 05/17/17 13:31 Total Protein 6.9 g/dL (6.4-8.2) 05/18/17 06:00 Albumin 2.6 g/dL (3.4-5.0) L 05/18/17 06:00 Globulin 4.3 g/dL (2.5-4.5) 05/18/17 06:00 Albumin/Globulin Ratio 0.6 Ratio (1.1-2.1) L 05/18/17 06:00 - Assessment and Plan 1: jonatan anal abscesses .more on the Rt. perineal cellulitis . HIV +. on IV ATB , local care , sitz bath. may remove packing and change dressings . future colonoscopy in a month - Problem Patient Problems: Patient Problems Arthritis (Acute) M19.90 LILLI (generalized anxiety disorder) (Acute) F41.1 HIV disease (Acute) B20 Jonatan-rectal abscess (Acute) K61.1
[2017-05-18] MEDS ORDERED: ATARAX TAB 25 MG PO PRN (17:35)
[2017-05-18] MEDS: MOBIC TAB 15 MG PO SCH (19:00)
[2017-05-18] MEDS: SINEquan PO SCH (20:22)
[2017-05-18] MEDS: NYSTATIN SUSP MT SCH (20:23)
[2017-05-18] MEDS: ZOLOFT PO SCH (20:23)
[2017-05-18] MEDS: NEURONTIN CAP 100 MG PO SCH (21:39)
[2017-05-18] MEDS: VALIUM PO PRN (21:39)
[2017-05-18] MEDS ORDERED: CLEOCIN VIAL 600 MG 900 MG in D5W 50 ML IV 50 ML IV SCH (22:00)
[2017-05-18] MEDS: CLEOCIN VIAL 600 MG 900 MG in D5W 50 ML IV 50 ML IV SCH (23:05)
[2017-05-19] MEDS: DILAUDID INJ IVP PRN ×4 (01:26→21:35)
[2017-05-19] MEDS: CLEOCIN VIAL 600 MG 900 MG in D5W 50 ML IV 50 ML IV SCH ×3 (05:17→21:24)
[2017-05-19] MEDS: NEURONTIN CAP 100 MG PO SCH ×3 (05:17→21:15)
[2017-05-19] MEDS: TORADOL TAB PO PRN (05:27)
[2017-05-19] MEDS: NS 1000 ML 1,000 ML IV SCH (06:11)
[2017-05-19 06:48] LABS: BASOPHILS % (AUTO) 0.5 % (0.2-1.0); EOSINOPHILS # (AUTO) 0.3 x10^3/uL (0.0-0.2); EOSINOPHILS % (AUTO) 4.1 % (0.9-2.9); HEMATOCRIT 39.2 % (42.0-54.0); HEMOGLOBIN 13.8 g/dL (13.5-18.0); LYMPHOCYTES # (AUTO) 1.3 X10^3/uL (1.3-2.9); MEAN CORPUSCULAR HEMOGLOBIN 31.2 pg (27.0-34.0); MEAN CORPUSCULAR HGB CONC 35.2 g/dL (33.0-35.0); MEAN CORPUSCULAR VOLUME 88.7 fL (80.0-100.0); MEAN PLATELET VOLUME 8.4 fL (7.4-11.0); MONOCYTES # (AUTO) 0.5 x10^3/uL (0.3-0.8); MONOCYTES % (AUTO) 8.7 % (0.0-13.0); NEUTROPHILS % (AUTO) 64.7 % (42.0-75.0); PLATELET COUNT 132 X10^3/uL (150.0-450.0); RED BLOOD COUNT 4.42 X10^6/uL (4.7-6.0); RED CELL DISTRIBUTION WIDTH 13.5 % (11.6-16.5); WHITE BLOOD COUNT 6.1 X10^3/uL (3.6-10.0)
[2017-05-19 07:00] LABS: ALANINE AMINOTRANSFERASE 28 Units/L (12-78); ALBUMIN 2.6 g/dL (3.4-5.0); ALKALINE PHOSPHATASE 101 Units/L (46-116); ASPARTATE AMINO TRANSFERASE 38 Units/L (15-37); BLOOD UREA NITROGEN 20 mg/dL (7-18); CALCIUM 7.9 mg/dL (8.5-10.1); CARBON DIOXIDE 22.2 mmol/L (21-32); CHLORIDE 103 mmol/L (98-107); CREATININE 0.95 mg/dL (0.70-1.30); SODIUM 135 mmol/L (136-145); eGFR BLACK RACES > 60 (>60); eGFR NON BLACK RACES > 60 (>60)
[2017-05-19] MEDS: MILK OF MAGNESIA PO SCH ×2 (08:59→21:24)
[2017-05-19] MEDS: COLACE CAP 100 MG PO SCH ×2 (08:59→21:14)
[2017-05-19] MEDS: NYSTATIN SUSP MT SCH ×4 (08:59→21:15)
[2017-05-19] MEDS: MOBIC TAB 15 MG PO SCH (08:59)
--- NOTE | 2017-05-19 10:22 | DR.PROGNOT ---
Hospital Progress Notes - Progress Note for Day of: Progress Note Date: 05/19/17 - Chief Complaint Chief Complaint: having only mild drainage . c/o incisional pain ,. no fever today. culture MRSA sensitive to Levaquin ,resistant to Clindamycin - Past Medical Family Social History Past Med/Fam/Surg Hx: No changes since H&P Allergies: Allergies diphenhydramine Allergy (Verified 05/06/17 10:43) Penicillins Allergy (Verified 05/06/17 10:43) tramadol Allergy (Verified 05/06/17 10:43) vancomycin Allergy (Verified 05/18/17 21:58) RASH - Vital Signs Vital Signs: Temperature 98.7 F Pulse Rate [Right Brachial] 74 Respiratory Rate 20 Blood Pressure [Right Arm] 98/65 Blood Pressure [Left Arm] 118/69 Blood Pressure 145/79 O2 Sat by Pulse Oximetry 93 - Physical Exam Oriented: Normal Eyes: Normal Ear: Normal Nose: Normal Throat: Normal Cardiovascular: Normal : Normal GI:Auscultation: Normal GI:Palpation: Normal GI: Tenderness: Normal Skin: Red, Tender (LOCALIZED TO RIGHT BUTTOCKS, PERINEUM and SCROTUM), Hot Musculoskeletal: Back:Lumbar Psychiatric: Anxiety Affect: Anxious Speech Pattern: Clear, Appropriate - Laboratory and Diagnostics Result Diagrams: 05/19/17 05:30 05/19/17 05:30 Labs: 05/17/17 15:44 Buttock Gram Stain - Final 05/17/17 15:44 Buttock Wound Culture - Preliminary 05/17/17 15:44 Buttock Gram Stain - Final 05/17/17 15:44 Buttock Wound Culture - Final Methicillin Resis Staph Aureus Laboratory WBC 6.1 X10^3/uL (3.6-10.0) 05/19/17 05:30 RBC 4.42 X10^6/uL (4.7-6.0) L 05/19/17 05:30 Hgb 13.8 g/dL (13.5-18.0) 05/19/17 05:30 Hct 39.2 % (42.0-54.0) L 05/19/17 05:30 MCV 88.7 fL (80.0-100.0) 05/19/17 05:30 MCH 31.2 pg (27.0-34.0) 05/19/17 05:30 MCHC 35.2 g/dL (33.0-35.0) H 05/19/17 05:30 RDW 13.5 % (11.6-16.5) 05/19/17 05:30 Plt Count 132 X10^3/uL (150.0-450.0) L 05/19/17 05:30 MPV 8.4 fL (7.4-11.0) 05/19/17 05:30 Neut % 64.7 % (42.0-75.0) 05/19/17 05:30 Lymph % 22.0 % (21.0-51.0) 05/19/17 05:30 [place] % 8.7 % (0.0-13.0) 05/19/17 05:30 Eos % 4.1 % (0.9-2.9) H 05/19/17 05:30 Baso % 0.5 % (0.2-1.0) 05/19/17 05:30 Neut # 4.0 x10^3/uL (2.2-4.8) 05/19/17 05:30 Lymph # 1.3 X10^3/uL (1.3-2.9) 05/19/17 05:30 [place] # 0.5 x10^3/uL (0.3-0.8) 05/19/17 05:30 Eos # 0.3 x10^3/uL (0.0-0.2) H 05/19/17 05:30 Baso # 0.0 X10^3/uL (0.0-0.1) 05/19/17 05:30 Absolute Nucleated RBC 0.0 /100WBC 05/19/17 05:30 ESR 16 MM/HOUR (0-15) H 05/17/17 13:31 Sodium 135 mmol/L (136-145) L 05/19/17 05:30 Corrected Sodium TNP 05/19/17 05:30 Potassium 4.1 mmol/L (3.5-5.1) 05/19/17 05:30 Chloride 103 mmol/L (98-107) 05/19/17 05:30 Carbon Dioxide 22.2 mmol/L (21-32) 05/19/17 05:30 BUN 20 mg/dL (7-18) H 05/19/17 05:30 Creatinine 0.95 mg/dL (0.70-1.30) 05/19/17 05:30 Est GFR (MDRD) Af Amer > 60 (>60) 05/19/17 05:30 Est GFR (MDRD) Non-Af > 60 (>60) 05/19/17 05:30 Glucose 86 mg/dL (65-99) 05/19/17 05:30 Calcium 7.9 mg/dL (8.5-10.1) L 05/19/17 05:30 Corrected Calcium 9.0 mg/dL (8.5-10.1) 05/19/17 05:30 Total Bilirubin 0.60 mg/dL (0.2-1.0) 05/19/17 05:30 AST 38 Units/L (15-37) H 05/19/17 05:30 ALT 28 Units/L (12-78) 05/19/17 05:30 Alkaline Phosphatase 101 Units/L (46-116) 05/19/17 05:30 C-Reactive Protein 84.50 mg/L (0-3.0) H 05/17/17 13:31 Total Protein 7.0 g/dL (6.4-8.2) 05/19/17 05:30 Albumin 2.6 g/dL (3.4-5.0) L 05/19/17 05:30 Globulin 4.4 g/dL (2.5-4.5) 05/19/17 05:30 Albumin/Globulin Ratio 0.6 Ratio (1.1-2.1) L 05/19/17 05:30 - Assessment and Plan 1: perianal abscesses .more on the Rt , resolving. positive for MRSA. perineal cellulitis . HIV +. on IV ATB , local care , sitz bath. may remove packing and change dressings . from surgical point Pt could be discharged on ATB maybe Levaquin and close F/U.. sitzbath at home TID - Problem Patient Problems: Patient Problems Arthritis (Acute) M19.90 LILLI (generalized anxiety disorder) (Acute) F41.1 HIV disease (Acute) B20 Gabriela-rectal abscess (Acute) K61.1
[2017-05-19] MEDS ORDERED: CLEOCIN IV ONE (14:35)
[2017-05-19] MEDS ORDERED: CLEOCIN VIAL 600 MG ONE ×3 (14:36→21:07)
[2017-05-19] MEDS ORDERED: NS 100 ML IV 100 ML IV ONE (14:43)
[2017-05-19] MEDS ORDERED: CLEOCIN 300 MG IV PREMIX 300 MG/50 ML BAG IV ONE (21:07)
[2017-05-19] MEDS: ZOLOFT PO SCH (21:15)
[2017-05-19] MEDS: VALIUM PO PRN (21:15)
[2017-05-19] MEDS: SINEquan PO SCH (21:15)
[2017-05-20] MEDS: NS 1000 ML 1,000 ML IV SCH (00:34)
[2017-05-20] MEDS: DILAUDID INJ IVP PRN ×2 (03:18→08:35)
[2017-05-20] MEDS ORDERED: CLEOCIN 300 MG IV PREMIX 300 MG/50 ML BAG IV ONE (05:10)
[2017-05-20] MEDS ORDERED: CLEOCIN 600 MG IV PREMIX 600 MG/50 ML BAG IV ONE (05:10)
[2017-05-20] MEDS: CLEOCIN VIAL 600 MG 900 MG in D5W 50 ML IV 50 ML IV SCH (05:13)
[2017-05-20] MEDS: NEURONTIN CAP 100 MG PO SCH ×2 (05:14→14:06)
[2017-05-20 06:13] LABS: BASOPHILS % (AUTO) 0.9 % (0.2-1.0); EOSINOPHILS # (AUTO) 0.2 x10^3/uL (0.0-0.2); EOSINOPHILS % (AUTO) 6.9 % (0.9-2.9); HEMATOCRIT 37.8 % (42.0-54.0); HEMOGLOBIN 13.5 g/dL (13.5-18.0); LYMPHOCYTES % (AUTO) 29.1 % (21.0-51.0); MEAN CORPUSCULAR HEMOGLOBIN 31.4 pg (27.0-34.0); MEAN CORPUSCULAR HGB CONC 35.6 g/dL (33.0-35.0); MEAN PLATELET VOLUME 8.2 fL (7.4-11.0); MONOCYTES # (AUTO) 0.4 x10^3/uL (0.3-0.8); MONOCYTES % (AUTO) 12.9 % (0.0-13.0); NEUTROPHILS # (AUTO) 1.7 x10^3/uL (2.2-4.8); NEUTROPHILS % (AUTO) 50.2 % (42.0-75.0); PLATELET COUNT 131 X10^3/uL (150.0-450.0); RED BLOOD COUNT 4.29 X10^6/uL (4.7-6.0); RED CELL DISTRIBUTION WIDTH 13.5 % (11.6-16.5); WHITE BLOOD COUNT 3.4 X10^3/uL (3.6-10.0)
[2017-05-20 06:21] LABS: ALANINE AMINOTRANSFERASE 29 Units/L (12-78); ALBUMIN 2.5 g/dL (3.4-5.0); ALKALINE PHOSPHATASE 117 Units/L (46-116); ASPARTATE AMINO TRANSFERASE 41 Units/L (15-37); BLOOD UREA NITROGEN 16 mg/dL (7-18); CALCIUM 7.8 mg/dL (8.5-10.1); CARBON DIOXIDE 24.2 mmol/L (21-32); CHLORIDE 104 mmol/L (98-107); CREATININE 0.97 mg/dL (0.70-1.30); SODIUM 136 mmol/L (136-145); TOTAL PROTEIN 6.7 g/dL (6.4-8.2); eGFR BLACK RACES > 60 (>60); eGFR NON BLACK RACES > 60 (>60)
[2017-05-20] MEDS: TORADOL TAB PO PRN (06:45)
[2017-05-20] MEDS: MOBIC TAB 15 MG PO SCH (08:34)
[2017-05-20] MEDS: NYSTATIN SUSP MT SCH ×2 (08:34→14:06)
[2017-05-20] MEDS: COLACE CAP 100 MG PO SCH (08:34)
[2017-05-20] MEDS: MILK OF MAGNESIA PO SCH (09:00)
[2017-05-20 09:15] VITALS: BP 122/77
[2017-05-20] MEDS ORDERED: CONSULT PHARMACY - ANTIBIOTIC XX SCH (12:00)
[2017-05-20] MEDS ORDERED: BACTRIM DS TAB PO SCH (13:00)
--- NOTE | 2017-05-20 13:52 | MRI ---
MRI cervical spine without contrast. Indication: Right arm pain radiating to back Technique: Multiplanar, multi sequence imaging of the cervical spine without IV contrast administrati on. Findings: There is moderate amount of fluid within bilateral mastoid air cells. Cervical spine alignm ent demonstrates no spondylolisthesis however there is loss of normal cervical lordosis. Moderate end plate degenerative changes noted at C6-7. There is no prevertebral or paraspinal soft tissue swelling or fluid collection. Craniocervical junction is intact. Foramen magnum is patent. There is no mass o r mass effect identified within the visualized posterior fossa. Cervical cord demonstrates normal sig nal without evidence of atrophy or expansion. At C2-3 mild facet arthropathy and disc osteophyte complex causes no significant spinal canal stenosi s with mild bilateral bony neural foraminal narrowing. At C3-4 bilateral facet arthropathy and uncovertebral hypertrophy along with disc osteophyte complex causes mild spinal canal stenosis with moderate left and [id number] right-sided bony neural for aminal stenosis. At C4-5 [id number]-right facet arthropathy with disc osteophyte complex and uncovertebral hype rtrophy causes mild spinal canal stenosis with moderate severe left and [id number] right-sided bony neural foraminal stenosis. At C5-6 limited visualization given patient motion demonstrates facet arthropathy with uncovertebral hypertrophy and discogenic degenerative change causing moderate spinal canal stenosis with moderate s evere left and moderate right-sided bony neural foraminal stenosis. At C6-7 limited visualization secondary to patient motion demonstrates facet arthropathy, uncovertebr al hypertrophy and disc osteophyte complex causing moderate to severe spinal canal stenosis with susp ected moderate severe bilateral bony neural foraminal stenosis. At C7-T1 [id number]-right facet arthropathy with disc osteophyte complex change causing mild s thu canal stenosis with moderate left and mild right-sided bony neural foraminal stenosis. Impression: Limited evaluation secondary to patient motion demonstrates multilevel discogenic degener ative change and facet arthropathy causing varying degrees of spinal canal and bony neural foraminal stenosis which is most severe at C5-6 and C6-7 as described above. 2. Moderate fluid within bilateral mastoid air cells needs clinical correlation for signs of acute ma stoiditis. 3. Fatty atrophy of the right parotid gland. Reported By:
== END 2017-05-20 16:25 | disposition home or self-care (01) | DRG 393 ==
LOC: OBS 11:58 → MED/SURG 12:26
PROVIDERS: ADMIT Internal Medicine; ATTEND Internal Medicine
PROC: 0J993ZZ Drainage of Buttock Subcutaneous Tissue and Fascia, Percutaneous Approach (ICD-10-PCS; 2017-05-17)
PROC: 3E0234Z Introduction of Serum, Toxoid and Vaccine into Muscle, Percutaneous Approach (ICD-10-PCS; 2017-05-17)
PROC: 3E0234Z Introduction of Serum, Toxoid and Vaccine into Muscle, Percutaneous Approach (ICD-10-PCS; 2017-05-17)
PROC: 0J993ZZ Drainage of Buttock Subcutaneous Tissue and Fascia, Percutaneous Approach (ICD-10-PCS; principal; 2017-05-17 15:00)
DX: K61.1 Rectal abscess (principal); B20 Human immunodeficiency virus [HIV] disease; J44.9 Chronic obstructive pulmonary disease, unspecified; L03.317 Cellulitis of buttock; F41.8 Other specified anxiety disorders; F32.89 Other specified depressive episodes; R51 Headache; I10 Essential (primary) hypertension; N49.2 Inflammatory disorders of scrotum; Z23 Encounter for immunization; Z66 Do not resuscitate; M19.90 Unspecified osteoarthritis, unspecified site; B95.62 Methicillin resistant Staphylococcus aureus infection as the cause of diseases classified elsewhere; R94.31 Abnormal electrocardiogram [ECG] [EKG]; F41.1 Generalized anxiety disorder; E87.6 Hypokalemia
CPT/HCPCS: 36415; 72141; 76870; 76881; 80053; 85025; 85652; 86140; 87070; 87075; 87077; 87186; 87205; 90686; A4222; S0030; S0077; S0195; J0077; J0690; J1170; J1956; J2001; J2250; J2270; J3010; J3370; J3490; J7120

== ENCOUNTER → 2017-06-24 | Outpatient (CLI) | payer MEDICAID ==
[2017-06-24 17:23] LABS: BASOPHILS % (AUTO) 0.7 % (0.2-1.0); EOSINOPHILS # (AUTO) 0.1 x10^3/uL (0.0-0.2); HEMATOCRIT 44.6 % (42.0-54.0); HEMOGLOBIN 15.9 g/dL (13.5-18.0); LYMPHOCYTES # (AUTO) 1.5 X10^3/uL (1.3-2.9); LYMPHOCYTES % (AUTO) 24.7 % (21.0-51.0); MEAN CORPUSCULAR HEMOGLOBIN 31.4 pg (27.0-34.0); MEAN CORPUSCULAR HGB CONC 35.5 g/dL (33.0-35.0); MEAN CORPUSCULAR VOLUME 88.2 fL (80.0-100.0); MEAN PLATELET VOLUME 8.2 fL (7.4-11.0); MONOCYTES # (AUTO) 0.6 x10^3/uL (0.3-0.8); NEUTROPHILS # (AUTO) 3.8 x10^3/uL (2.2-4.8); NEUTROPHILS % (AUTO) 62.6 % (42.0-75.0); PLATELET COUNT 163 X10^3/uL (150.0-450.0); RED BLOOD COUNT 5.06 X10^6/uL (4.7-6.0); RED CELL DISTRIBUTION WIDTH 13.7 % (11.6-16.5)
--- NOTE | 2017-06-24 17:26 | RAD ---
Exam: Chest two views History: Asthma. COPD. Comparison: Acute abdominal series [id number]. Findings: Borderline cardiomegaly is again seen. No significant vascular congestion. Left hemidiaphragm remains elevated. Lungs are clear with no infiltrate or pleural effusion on either side. Impression: Borderline cardiomegaly with chronic elevation of left hemidiaphragm. No acute superimposed abnormali ty is seen. Reported By:
[2017-06-24 17:32] LABS: ALANINE AMINOTRANSFERASE 42 Units/L (12-78); ALBUMIN 3.6 g/dL (3.4-5.0); ALKALINE PHOSPHATASE 113 Units/L (46-116); ASPARTATE AMINO TRANSFERASE 34 Units/L (15-37); BLOOD UREA NITROGEN 18 mg/dL (7-18); CALCIUM 7.9 mg/dL (8.5-10.1); CARBON DIOXIDE 22.1 mmol/L (21-32); CHLORIDE 105 mmol/L (98-107); SODIUM 139 mmol/L (136-145); TOTAL PROTEIN 8.3 g/dL (6.4-8.2); eGFR BLACK RACES > 60 (>60); eGFR NON BLACK RACES > 60 (>60)
== END | disposition home or self-care (01) | DRG 951 ==
LOC: LAB 16:11
PROVIDERS: ATTEND Internal Medicine
DX: Z01.818 Encounter for other preprocedural examination (principal); Z01.810 Encounter for preprocedural cardiovascular examination; Z01.811 Encounter for preprocedural respiratory examination; M50.322 Other cervical disc degeneration at C5-C6 level
CPT/HCPCS: 36415; 71046; 80053; 85025; 93005; 93010

== ENCOUNTER 2017-07-03 01:29 | Emergency (ER) | payer MEDICAID ==
[2017-07-03 01:40] VITALS: BP 117/69; BMI 24.3
[2017-07-03] MEDS ORDERED: NS 1000 ML 1,000 ML ONE (02:55)
[2017-07-03] MEDS ORDERED: TORADOL 30 MG VIAL ONE (02:55)
--- NOTE | 2017-07-03 02:55 | DR.GENAD ---
HPI - PCP Primary Care Physician: JONI - HPI Comment HPI Comment: CURRENTLY ON BACTRIM FOR CELLULITIS BUT CONTINUE TO RUN FEVER. REDNESS IS EXTENDING AND SWELLING NEAR AXILLAR GETTING BIGGER. IT IS GETTING WORSE TODAY. - Complaint/Symptoms Chief Complaint Doctors Comments: SWELLING AND REDNESS RIGHT UPPER ARM TIMES FEW DAYS. Chief Complaint:: PT HAS REDNESS TO RT UPPER ARM SWELLING NOTED UNDER RT ARM - Nurses notes reviewed Nurses Notes Review: Yes - Source History Provided: Patient - Mode of Arrival Mode of Arrival: Ambulatory - Timing Onset of Chief Complaint: 07/03/17 Came on: Suddenly - Duration Duration: Constant Duration: Days - Severity Severity: Moderate PMH - PMH Past Medical History: Yes Past Medical History: Angina, Anxiety, Asthma, COPD, Depression, Migraines, Headaches, Hypertension Past Surgical History: Yes Surgical History: Other Past Surgical History Comment: HEART - Family History History of Family Medical Conditions: Yes Family Medical History: Diabetes Mellitus, Cancer, [place] - Social History Does patient currently use any type of tobacco product: Yes Have you used tobacco products in the last 12 months: Yes Type of Tobacco Use: Cigarettes Does any household member use tobacco: No Alcohol Use: None Do you use any recreational Drugs:: No Lives With: Family Lives Where: Home - infectious screening In the last 2 months have you had wt loss of >10#?: NO Have you had fever, night sweats or hemotysis?: No Have you traveled outside the country in the last 6 months?: No Isolation: Standard ROS - Review of Systems Constitutional: Fever, Weakness, Fatigue Eyes: No Symptoms Reported. negative: Eye Pain, Discharge ENTM: No Symptoms Reported. negative: Ear Pain, Nose Discharge, Nose Congestion , Throat Pain Respiratoy: No Symptoms Reported. negative: Productive Cough, Non-Productive Cough, Short of Breath, Wheezing, Hemoptysis Cardiovascular: Palpitations. negative: Chest Pain Gastrointestinal/Abdominal: negative: Abdominal Pain, Diarrhea, Nausea, Vomiting Genitourinary: No Symptoms Reported. negative: Dysuria, Frequency, Hematuria Neurological: Headache, Weakness Musculoskeletal: Muscle Pain Integumentary: Other (CELLULITIS LUE.) Hematologic/Lymphatic: Easy Bleeding, Easy Bruising Endocrine: No Symptoms Reported All Other Systems: Reviewed and Negative PE - Vital Signs Vitals: Temperature 99 F Pulse Rate 103 Respiratory Rate 18 Blood Pressure [Right Arm] 122/77 Blood Pressure [Left Arm] 97/52 Blood Pressure 117/69 O2 Sat by Pulse Oximetry 97 - General Limitations: No Limitations General Appearance: Alert - Head Head Exam: Normal Inspection - Eyes Eye exam: Normal Appearance - ENT ENT Exam: Normal External Ear Exam External Ear Exam: Normal External Inspection TM/Canal Exam: Bilateral Normal Nose Exam: Normal Nose Exam Mouth Exam: Normal Inspection Throat Exam: Normal Inspection - Neck Neck Exam: Trachea Midline. negative: Tenderness, Meningismus, Lymphadenopathy - Chest Chest Inspection: Symmetric Chest Wall Rise - Respiratory Respiratory Exam: Normal Lung Sounds Bilat Respiratory Exam: Bilateral Clear to Auscultation - Cardiovascular Cardiovascular Exam: Regular Rate, Normal Rhythm, Normal Heart Sounds - Abdominal Exam Abdominal Exam: Normal Bowel Sounds, Soft. negative: Tenderness - Extremities Extremities Exam: Tenderness (SWELLING AND REDNESS RT ARM. NO DRAINAGE. ) - Back Back Exam: Normal Inspection - Neurologic Neurological Exam: Alert, Oriented X3 - Psychiatric Psychiatric Exam: Anxious - Skin Skin Exam: Erythema MDM - Additional Information Additional Information Obtained From: Family - Differential Diagnosis Differential Diagnosis: CELLULITIS LT ARM Course - Treatment Treatment: SEE ORDERS. PATIENT DO NOT WISH TO HAVE IV VANCOMYCIN AND IV TORADOL. HE DID NOT WISH TO HAVE IV FLUIDS. HE SIGN AMA. - Education/Counseling Education/Counseling: Patient, Family, Education Educated On: Diagnosis - Diagnosis Discharge Problem: Cellulitis of left arm - Discharge Plan Disposition: 07 AGAINST MEDICAL ADVICE Condition: Stable - Follow ups/Referrals Follow ups/Referrals: DAMIAN QUINONES [Primary Care Provider] - 3 days - Instructions
[2017-07-03] MEDS ORDERED: VANCOMYCIN HCL 1 GM VIAL 1 GM in D5W 250 ML IV 250 ML IV ONE (02:56)
[2017-07-03] MEDS ORDERED: TORADOL 30 MG VIAL IVP ONE (02:56)
[2017-07-03] MEDS ORDERED: NS 1000 ML 1,000 ML IV ONE (02:56)
== END 2017-07-03 03:28 | disposition left against medical advice (07) ==
LOC: ER 01:29
DX: L03.114 Cellulitis of left upper limb (principal)
CPT/HCPCS: 96365; 99282; 99283; A4222; J1885

== ENCOUNTER → 2017-07-05 | Day surgery (SDC) | payer MEDICAID ==
[~2017-07-05] MED LIST: ANCEF 1 GM IV PREMIX* 1 GM/50 ML BAG IV ONE; DIPRIVAN VIAL ONE; FENTANYL INJ 100 mcg ONE; KETALAR ONE; LR 1000 ML IV 1,000 ML IV ONE; NS 250 ML IV 250 ML IV ONE; NS IRRIGATION 1000 ML 1,000 ML with BACITRACIN VIAL 50,000 UNT IR ONE; VERSED ONE; XYLOCAINE 1% and EPINEPHRINE 1:100,000 ONE
[2017-07-05] MEDS: VANCOMYCIN HCL 1 GM VIAL ONE ×2 (11:08→11:15)
[2017-07-05 12:20] VITALS: BP 99/56
== END | disposition home or self-care (01) ==
LOC: SURG1 09:13
PROVIDERS: ATTEND Surgery
PROC: 0X940ZZ Drainage of Right Axilla, Open Approach (ICD-10-PCS; principal; 2017-07-05 11:30)
DX: L02.411 Cutaneous abscess of right axilla (principal); B95.7 Other staphylococcus as the cause of diseases classified elsewhere; Z87.2 Personal history of diseases of the skin and subcutaneous tissue; Z86.14 Personal history of Methicillin resistant Staphylococcus aureus infection
CPT/HCPCS: 87070; 87075; 87077; 87186; 87205; A4222; J0690; J2001; J2250; J3010; J3370; J3490; J7120

== ENCOUNTER 2017-10-16 10:16 | Inpatient (IN) ==
[2017-10-16] MEDS ORDERED: DIFLUCAN 200 MG IV PREMIX* 200 MG/100 ML BAG IV SCH (11:00)
[2017-10-16 11:32] LABS: BASOPHILS % (AUTO) 1.4 % (0.2-1.0); EOSINOPHILS # (AUTO) 0.2 x10^3/uL (0.0-0.2); EOSINOPHILS % (AUTO) 5.5 % (0.9-2.9); HEMATOCRIT 43.3 % (42.0-54.0); HEMOGLOBIN 15.4 g/dL (13.5-18.0); LYMPHOCYTES # (AUTO) 1.3 X10^3/uL (1.3-2.9); LYMPHOCYTES % (AUTO) 36.8 % (21.0-51.0); MEAN CORPUSCULAR HEMOGLOBIN 31.8 pg (27.0-34.0); MEAN CORPUSCULAR HGB CONC 35.5 g/dL (33.0-35.0); MEAN CORPUSCULAR VOLUME 89.7 fL (80.0-100.0); MEAN PLATELET VOLUME 8.2 fL (7.4-11.0); MONOCYTES # (AUTO) 0.3 x10^3/uL (0.3-0.8); MONOCYTES % (AUTO) 9.2 % (0.0-13.0); NEUTROPHILS # (AUTO) 1.7 x10^3/uL (2.2-4.8); NEUTROPHILS % (AUTO) 47.1 % (42.0-75.0); PLATELET COUNT 130 X10^3/uL (150.0-450.0); RED BLOOD COUNT 4.83 X10^6/uL (4.7-6.0); RED CELL DISTRIBUTION WIDTH 13.5 % (11.6-16.5); WHITE BLOOD COUNT 3.7 X10^3/uL (3.6-10.0)
[2017-10-16 11:44] LABS: ALANINE AMINOTRANSFERASE 35 Units/L (12-78); ALBUMIN 3.3 g/dL (3.4-5.0); ALKALINE PHOSPHATASE 76 Units/L (46-116); ASPARTATE AMINO TRANSFERASE 47 Units/L (15-37); BLOOD UREA NITROGEN 20 mg/dL (7-18); CALCIUM 8.5 mg/dL (8.5-10.1); CARBON DIOXIDE 26.2 mmol/L (21-32); CHLORIDE 109 mmol/L (98-107); COR CA(FOR HYPOALB) 9.1 mg/dL (8.5-10.1); CREATININE 1.03 mg/dL (0.70-1.30); SODIUM 144 mmol/L (136-145); TOTAL PROTEIN 7.5 g/dL (6.4-8.2); eGFR NON BLACK RACES > 60 (>60)
[2017-10-16] MEDS: CIPRO IV 400 MG PREMIX* 400 MG/200 ML IV.SOLN. IV SCH ×2 (11:45→20:55)
[2017-10-16] MEDS: NORCO 10/325 TAB PO PRN ×3 (11:45→23:47)
[2017-10-16] MEDS: PROTONIX INJ 40 MG VIAL IVP SCH (11:46)
[2017-10-16] MEDS: NS 1000 ML 1,000 ML IV SCH (11:46)
[2017-10-16] MEDS: NYSTATIN SUSP PO SCH ×4 (11:46→20:56)
[2017-10-16] MEDS ORDERED: DIFLUCAN ONE (13:08)
--- NOTE | 2017-10-16 13:32 | DR.H&P ---
H&P - History & Physical for Day of: H&P Date: 10/16/17 - Chief Complaint Chief Complaint: ABDOMINAL PAIN, N/V/V BLOOD AND MUCOUS IN STOOL - History of Present Illness History of Present Illness: 46 WM DIRECT ADMIT FROM DR LORENZO OFFICE WITH CO UPPER ABDOMINAL PAIN WITH N/V/D AND CO MUCOUSE AND BLOOD IN STOOL. PT CO FEELING WEAK AND SEVERE CRAMPS. PT HAD HX HIV, AND CURRENTLY HAS SEVERE ORAL THRUSH INFECTION, TAKING NYSTATIN BY MOUTH. PT IS NOT CURRENTLY ON ANY ANTIVIRAL MEDICATION. PT SEEN IN OFFICE ONE DAY AGO GIVEN IM TORADOL AND PHENERGAN STARTED ON PO CIPRO WITHOUT IMPROVEMENT. PT HAS SEEN DR REESE IN PAST DISCUSSION FOR NEED FOR COLONOSCOPY DUE TO HX OF PERIRECTAL ABSCESS SEVERAL MONTHS AGO. PT ADMITTED FOR EVALUATION AND TREATMENT OF ACUTE GI ILLNESS. - Past Medical History Past Medical History: Angina, Anxiety, Asthma, COPD, Depression, Migraines, Headaches, Hypertension - Past Surgical History Surgical History: Other - Family History Family Medical History: Diabetes Mellitus, Cancer, [place] - Social History Does patient currently use any type of tobacco product: Yes Have you used tobacco products in the last 12 months: Yes Type of Tobacco Use: Cigarettes How many years tobacco product used: 30 Alcohol Use: None Drug Use: Marijuana - Medications Home Medications: diphenhydramine Allergy (Verified 05/06/17 10:43) Penicillins Allergy (Verified 05/06/17 10:43) tramadol Allergy (Verified 05/06/17 10:43) vancomycin Allergy (Verified 05/18/17 21:58) RASH codeine Adverse Reaction (Mild, Verified 10/16/17 11:47) itching CONTINUE taking the following medications betamethasone dipropionate 0.05 % TOPICAL BID 10/16/17 [History] budesonide-formoterol [Symbicort] 2 puff INHALATION BID 10/16/17 [History] fluocinolone 0.01 % TOPICAL TID 10/16/17 [History] gabapentin 300 mg PO Q8H PRN 10/16/17 [History] hydrocodone-acetaminophen 5 - 325 mg PO Q6H PRN 10/16/17 [History] quetiapine 50 mg PO HS 10/16/17 [History] - Review of Systems Constitutional: Chills, Weakness, Malaise Eyes: No Symptoms Reported ENT: No Symptoms Reported Cardiovascular: No Symptoms Reported Gastrointestinal: Nausea, Vomiting, Abdominal Pain, Diarrhea, Melena Genitourinary: No Symptoms Reported Musculoskeletal: Back Pain, Neck Pain Skin: Rash Neurological: Weakness - Physical Exam Vital Signs: Temperature 97.7 F Pulse Rate [Right Brachial] 56 Respiratory Rate 18 Blood Pressure [Right Arm] 109/66 Blood Pressure [Left Arm] 97/52 Blood Pressure 99/56 O2 Sat by Pulse Oximetry 96 Oriented: Normal Eyes: Normal Ear: Normal Nose: Normal Throat: Normal Respiratory: RLL Diminished, LLL Diminished Cardiovascular: Tachycardia. negative: Edema : Normal Auscultation: Bowel Sounds: Increased Tenderness: RUQ, LUQ, Epigastric Skin: Decreased Turgur, Rash (ERYTHEMATOUS RASH TO BILATERAL EARS) Musculoskeletal: Back:Thoracic, Back:Lumbar, Tender Affect: Anxious Speech Pattern: Clear - Assessment/Plan (1) Abdominal pain Status: Acute Plan: ADMIT, NPO UNTIL CT ABD PELVIS WITH CONTRAST. IV HYDRATION, PAIN AND NAUSEA CONTROL. IV CIPRO AND FLAGYL, STOOL STUDIES. VERIFY HOME MEDS. ADMISSION LABS, CBC CMP UA (2) Nausea, vomiting and diarrhea Status: Acute (3) Blood in stool Status: Acute (4) LILLI (generalized anxiety disorder) Status: Acute (5) HIV disease Status: Chronic - Allergies Allergies/Adverse Reactions: Allergies Allergy/AdvReac Type Severity Reaction Status Date / Time diphenhydramine Allergy Verified 05/06/17 10:43 Penicillins Allergy Verified 05/06/17 10:43 tramadol Allergy Verified 05/06/17 10:43 vancomycin Allergy RASH Verified 05/18/17 21:58 codeine AdvReac Mild itching Verified 10/16/17 11:47
[2017-10-16] MEDS ORDERED: NS 100 ML IV 100 ML IV ONE ×3 (13:33→22:36)
[2017-10-16 13:47] LABS: AMYLASE 82 Units/L (25-115); LIPASE 190 Units/L (73-393)
[2017-10-16] MEDS ORDERED: ZOFRAN INJ 4 MG VIAL ONE ×2 (13:50→22:37)
[2017-10-16] MEDS ORDERED: DECADRON INJ PRESERVATIVE-FREE IM ONE ×2 (13:50→22:36)
[2017-10-16] MEDS ORDERED: ATIVAN INJ 2 MG VIAL ONE ×2 (13:51→22:37)
[2017-10-16] MEDS: ZOFRAN INJ 4 MG VIAL 16 MG, ATIVAN INJ 2 MG VIAL 1 MG, DECADRON INJ 10 MG in NS 50 ML I... IV PRN ×2 (13:52→22:55)
[2017-10-16] MEDS ORDERED: DIFLUCAN PO SCH (14:00)
--- NOTE | 2017-10-16 14:50 | CT ---
CT of the abdomen/pelvis with contrast History: 46-year-old male with abdominal pain nausea vomiting as well as blood and mucus in stool Comparison: None. Technique: Axial imaging was performed through the abdomen and pelvis following administration of int ravenous contrast. Sagittal and coronal reformations were generated. Automated exposure control techn iques were used for this exam. Findings: Visualized lung bases are clear. Mild fatty changes are seen in the liver. The spleen, pancreas, adrenal glands, and gallbladder are n ormal appearing. Both kidneys are normal as well with no hydronephrosis, radiopaque calculi, or solid renal mass on either side. Scattered diverticula are. present in the distal descending and sigmoid c olon. Mild generalized thickening of the wall of the descending and sigmoid colon is seen. Findings m ay reflect chronic information mild underlying colitis. Remainder of the colon as well as the small b owel are unremarkable appearing. No sign of obstruction. The abdominal aorta and IVC are normal. No i ntra-abdominal or pelvic masses, lymphadenopathy, or ascites. On the bone windows, no acute abnormality is seen. Impression: 1. Mild fatty changes are noted in the liver. 2. Scattered diverticula are present the descending and sigmoid colon. 3.. Mild generalized wall thickening of the descending and sigmoid colon may reflect chronic inflamma tion or low-grade colitis Reported By:
[2017-10-16 15:25] LABS: BILIRUBIN,URINE NEGATIVE (NEGATIVE); BLOOD/HEMOGLOBIN,URINE NEGATIVE (NEGATIVE); GLUCOSE, URINE NEGATIVE (NEGATIVE); KETONES,URINE NEGATIVE (NEGATIVE); LEUKOCYTE ESTERASE ,URINE NEGATIVE (NEGATIVE); NITRITES,URINE NEGATIVE (NEGATIVE); PROTEIN,URINE 1+ (NEGATIVE); UROBILINOGEN,URINE NORMAL (NORMAL)
[2017-10-16 15:35] LABS: APPEARANCE,URINE CLEAR (CLEAR); BACTERIA,URINE NEGATIVE /HPF (NEGATIVE); COLOR,URINE YELLOW (YELLOW); RBC,URINE 0-2 /HPF (NONE SEEN); SQUAMOUS EPITHELIAL CELL,UR NEGATIVE /HPF (NEGATIVE)
[2017-10-17] MEDS: NS 1000 ML 1,000 ML IV SCH ×2 (01:09→15:11)
[2017-10-17] MEDS: NORCO 10/325 TAB PO PRN ×4 (04:03→20:33)
[2017-10-17 06:22] LABS: BASOPHILS % (AUTO) 0.2 % (0.2-1.0); EOSINOPHILS % (AUTO) 0.1 % (0.9-2.9); HEMATOCRIT 43.9 % (42.0-54.0); HEMOGLOBIN 15.5 g/dL (13.5-18.0); LYMPHOCYTES # (AUTO) 0.8 X10^3/uL (1.3-2.9); LYMPHOCYTES % (AUTO) 16.2 % (21.0-51.0); MEAN CORPUSCULAR HEMOGLOBIN 31.6 pg (27.0-34.0); MEAN CORPUSCULAR HGB CONC 35.3 g/dL (33.0-35.0); MEAN CORPUSCULAR VOLUME 89.3 fL (80.0-100.0); MEAN PLATELET VOLUME 8.2 fL (7.4-11.0); MONOCYTES # (AUTO) 0.1 x10^3/uL (0.3-0.8); MONOCYTES % (AUTO) 1.6 % (0.0-13.0); NEUTROPHILS # (AUTO) 3.9 x10^3/uL (2.2-4.8); NEUTROPHILS % (AUTO) 81.9 % (42.0-75.0); PLATELET COUNT 153 X10^3/uL (150.0-450.0); RED BLOOD COUNT 4.92 X10^6/uL (4.7-6.0); RED CELL DISTRIBUTION WIDTH 13.2 % (11.6-16.5); WHITE BLOOD COUNT 4.7 X10^3/uL (3.6-10.0)
[2017-10-17 06:41] LABS: ALANINE AMINOTRANSFERASE 32 Units/L (12-78); ALKALINE PHOSPHATASE 75 Units/L (46-116); ASPARTATE AMINO TRANSFERASE 32 Units/L (15-37); BLOOD UREA NITROGEN 17 mg/dL (7-18); CALCIUM 8.1 mg/dL (8.5-10.1); CARBON DIOXIDE 21.7 mmol/L (21-32); CHLORIDE 106 mmol/L (98-107); COR CA(FOR HYPOALB) 8.9 mg/dL (8.5-10.1); COR NA(FOR HYPERGLY) 139 mmol/L (136-145); SODIUM 138 mmol/L (136-145); TOTAL PROTEIN 7.2 g/dL (6.4-8.2); eGFR NON BLACK RACES > 60 (>60)
[2017-10-17 06:45] VITALS: BMI 23.4
[2017-10-17 06:47] LABS: PLATELET MORPHOLOGY COMMENT NORMAL (NORMAL)
[2017-10-17] MEDS: CIPRO IV 400 MG PREMIX* 400 MG/200 ML IV.SOLN. IV SCH ×2 (08:40→21:43)
[2017-10-17] MEDS: NYSTATIN SUSP PO SCH ×4 (08:40→20:34)
[2017-10-17] MEDS: PROTONIX INJ 40 MG VIAL IVP SCH (08:40)
[2017-10-17] MEDS ORDERED: DIFLUCAN 200 MG IV PREMIX* 200 MG/100 ML BAG IV SCH (09:00)
[2017-10-17] MEDS ORDERED: DIFLUCAN PO SCH (09:00)
[2017-10-17] MEDS ORDERED: DECADRON INJ PRESERVATIVE-FREE IM ONE (11:41)
[2017-10-17] MEDS ORDERED: ZOFRAN INJ 4 MG VIAL ONE (11:41)
[2017-10-17] MEDS ORDERED: NS 100 ML IV 100 ML IV ONE (11:42)
[2017-10-17] MEDS ORDERED: ATIVAN INJ 2 MG VIAL ONE (11:42)
[2017-10-17] MEDS: ZOFRAN INJ 4 MG VIAL 16 MG, ATIVAN INJ 2 MG VIAL 1 MG, DECADRON INJ 10 MG in NS 50 ML I... IV PRN (11:57)
[2017-10-17] MEDS ORDERED: VISTARIL PO PRN (12:52)
[2017-10-17] MEDS ORDERED: MORPHINE SULFATE INJ 2 MG INJ IVP ONE (12:53)
[2017-10-17] MEDS ORDERED: FLAGYL IV PREMIX 500 MG BAG 500 MG/100 ML BAG IV ONE (13:15)
[2017-10-17] MEDS ORDERED: VISTARIL PO ONE (13:15)
[2017-10-17] MEDS ORDERED: PHENERGAN INJ 25 MG IV PRN (13:19)
--- NOTE | 2017-10-17 13:24 | PCM.PROG ---
Progress Note - Progress Note for Day of Date of Exam: 10/17/17 - Subjective Subjective: PT 46 WM DIRECT ADMIT FROM DR LORENZO OFFICE WITH FINDINGS CONSISTENT WITH COLITIS. PT CO ABDOMINAL PAIN, N/V/D. AFTER ADMISSION PT REPORTS IMPROVED NAUSEA, CONTINUED WITH ABDOMINAL PAIN. PT CURRENTLY ON CIPRO AND FLAGYL, ADVANCE DIET. - Past Medical Family Social History Past Med/Fam/Surg Hx: No changes since H&P Allergies: Allergies diphenhydramine Allergy (Verified 05/06/17 10:43) Penicillins Allergy (Verified 05/06/17 10:43) tramadol Allergy (Verified 05/06/17 10:43) vancomycin Allergy (Verified 05/18/17 21:58) RASH codeine Adverse Reaction (Mild, Verified 10/16/17 11:47) itching fluconazole [From Diflucan] Adverse Reaction (Verified 10/17/17 07:58) - Review of Systems ROS: No change since H&P - Vital Signs and I&O's Vital Signs: Temperature 97.8 F Pulse Rate [Right Brachial] 53 Respiratory Rate 18 Blood Pressure [Right Arm] 115/72 Blood Pressure [Left Arm] 97/52 Blood Pressure 99/56 O2 Sat by Pulse Oximetry 95 Intake and Output: Intake & Output 10/15/17 10/16/17 10/17/17 10/18/17 11:59 11:59 11:59 11:59 Intake Total 2290 / 2290 Output Total 500 / 500 Balance 1790 / 1790 - Physical Exam Oriented: Normal Eyes: Normal Ear: Normal Nose: Normal Throat: Normal Respiratory: Diminished Cardiovascular: Tachycardia. negative: Edema : Normal Auscultation: Bowel Sounds: Increased Tenderness: RUQ, LUQ, Epigastric Skin: Decreased Turgur, Rash (ERYTHEMATOUS RASH TO BILATERAL EARS) Musculoskeletal: Back:Thoracic, Back:Lumbar, Tender Affect: Anxious Speech Pattern: Clear, Appropriate - Laboratory and Diagnostics Result Diagrams: 10/17/17 06:00 10/17/17 06:00 Labs: Laboratory WBC 4.7 X10^3/uL (3.6-10.0) 10/17/17 06:00 RBC 4.92 X10^6/uL (4.7-6.0) 10/17/17 06:00 Hgb 15.5 g/dL (13.5-18.0) 10/17/17 06:00 Hct 43.9 % (42.0-54.0) 10/17/17 06:00 MCV 89.3 fL (80.0-100.0) 10/17/17 06:00 MCH 31.6 pg (27.0-34.0) 10/17/17 06:00 MCHC 35.3 g/dL (33.0-35.0) H 10/17/17 06:00 RDW 13.2 % (11.6-16.5) 10/17/17 06:00 Plt Count 153 X10^3/uL (150.0-450.0) 10/17/17 06:00 Plt Count Comment Adequate (ADEQUATE) 10/17/17 06:00 MPV 8.2 fL (7.4-11.0) 10/17/17 06:00 Neut % (Auto) 81.9 % (42.0-75.0) H 10/17/17 06:00 Lymph % (Auto) 16.2 % (21.0-51.0) L 10/17/17 06:00 [place] % (Auto) 1.6 % (0.0-13.0) 10/17/17 06:00 Eos % (Auto) 0.1 % (0.9-2.9) L 10/17/17 06:00 Baso % (Auto) 0.2 % (0.2-1.0) 10/17/17 06:00 Neut # (Auto) 3.9 x10^3/uL (2.2-4.8) 10/17/17 06:00 Lymph # (Auto) 0.8 X10^3/uL (1.3-2.9) L 10/17/17 06:00 [place] # (Auto) 0.1 x10^3/uL (0.3-0.8) L 10/17/17 06:00 Eos # (Auto) 0.0 x10^3/uL (0.0-0.2) 10/17/17 06:00 Baso # (Auto) 0.0 X10^3/uL (0.0-0.1) 10/17/17 06:00 Absolute Nucleated RBC 0.0 /100WBC 10/17/17 06:00 Total Counted 100 07/26/18 06:00 Neutrophils % (Manual) 69 % (39-76) 10/17/17 06:00 Lymphocytes % (Manual) 26 % (13-43) 10/17/17 06:00 Monocytes % (Manual) 4 % (4-9) 10/17/17 06:00 Eosinophils % (Manual) 1 % (0-6) 10/17/17 06:00 Plt Morphology Comment Normal (NORMAL) 10/17/17 06:00 RBC Morphology Normal (NORMAL) 10/17/17 06:00 Sodium 138 mmol/L (136-145) 10/17/17 06:00 Corrected Sodium 139 mmol/L (136-145) 10/17/17 06:00 Potassium 4.2 mmol/L (3.5-5.1) 10/17/17 06:00 Chloride 106 mmol/L (98-107) 10/17/17 06:00 Carbon Dioxide 21.7 mmol/L (21-32) 10/17/17 06:00 BUN 17 mg/dL (7-18) 10/17/17 06:00 Creatinine 1.00 mg/dL (0.70-1.30) 10/17/17 06:00 Est GFR (MDRD) Af Amer > 60 (>60) 10/17/17 06:00 Est GFR (MDRD) Non-Af > 60 (>60) 10/17/17 06:00 Glucose 156 mg/dL (65-99) H 10/17/17 06:00 Calcium 8.1 mg/dL (8.5-10.1) L 10/17/17 06:00 Corrected Calcium 8.9 mg/dL (8.5-10.1) 10/17/17 06:00 Total Bilirubin 0.50 mg/dL (0.2-1.0) 10/17/17 06:00 AST 32 Units/L (15-37) 10/17/17 06:00 ALT 32 Units/L (12-78) 10/17/17 06:00 Alkaline Phosphatase 75 Units/L (46-116) 10/17/17 06:00 Total Protein 7.2 g/dL (6.4-8.2) 10/17/17 06:00 Albumin 3.0 g/dL (3.4-5.0) L 10/17/17 06:00 Globulin 4.2 g/dL (2.5-4.5) 10/17/17 06:00 Albumin/Globulin Ratio 0.7 Ratio (1.1-2.1) L 10/17/17 06:00 Amylase 82 Units/L (25-115) 10/16/17 11:19 Lipase 190 Units/L (73-393) 10/16/17 11:19 Specimen Type Clean catch urine 10/16/17 15:17 Urine Color Yellow (YELLOW) 10/16/17 15:17 Urine Appearance Clear (CLEAR) 10/16/17 15:17 Urine pH 5.0 (5.0 - 8.0) 10/16/17 15:17 Ur Specific [place] 1.005 (1.000-1.030) 10/16/17 15:17 Urine Protein 1+ (NEGATIVE) 10/16/17 15:17 Urine Glucose (UA) Negative (NEGATIVE) 10/16/17 15:17 Urine Ketones Negative (NEGATIVE) 10/16/17 15:17 Urine Occult Blood Negative (NEGATIVE) 10/16/17 15:17 Urine Nitrite Negative (NEGATIVE) 10/16/17 15:17 Urine Bilirubin Negative (NEGATIVE) 10/16/17 15:17 Urine Urobilinogen Normal (NORMAL) 10/16/17 15:17 Ur Leukocyte Esterase Negative (NEGATIVE) 10/16/17 15:17 Urine RBC 0-2 /HPF (NONE SEEN) 10/16/17 15:17 Urine WBC 0-2 /HPF (NONE SEEN) 10/16/17 15:17 Ur Squamous Epith Cells Negative /HPF (NEGATIVE) 10/16/17 15:17 Urine Bacteria Negative /HPF (NEGATIVE) 10/16/17 15:17 Ur Culture Indicated? No/not indicated 10/16/17 15:17 Urine Opiates Screen Negative (NEG=<300) 10/16/17 15:17 Urine Methadone Screen Negative (NEG=<300) 10/16/17 15:17 Ur Barbiturates Screen Negative (NEG=<200) 10/16/17 15:17 Ur Phencyclidine Scrn Negative (NEG=<25) 10/16/17 15:17 Ur Amphetamines Screen Negative (NEG=<1000) 10/16/17 15:17 U Benzodiazepines Scrn Negative (NEG=<200) 10/16/17 15:17 Urine Cocaine Screen Negative (NEG=<300) 10/16/17 15:17 U Marijuana (THC) Screen Positive (NEG=<50) A 10/16/17 15:17 - Plan (1) Abdominal pain Status: Acute Plan: CT ABD PELVIS WITH CONTRAST ON ADMISSION. IV HYDRATION, PAIN AND NAUSEA CONTROL. IV CIPRO AND FLAGYL, STOOL STUDIES. VERIFY HOME MEDS. ADMISSION LABS , CBC CMP UA (2) Nausea, vomiting and diarrhea Status: Acute (3) Blood in stool Status: Acute (4) LILLI (generalized anxiety disorder) Status: Acute (5) HIV disease Status: Chronic
[2017-10-17] MEDS: FLAGYL IV PREMIX 500 MG BAG 500 MG/100 ML BAG IV SCH ×2 (14:48→20:34)
[2017-10-17] MEDS: ATIVAN TAB 1 MG PO PRN (20:33)
[2017-10-18] MEDS: NORCO 10/325 TAB PO PRN ×3 (01:37→08:02)
[2017-10-18] MEDS: ATIVAN TAB 1 MG PO PRN (02:30)
[2017-10-18] MEDS: NS 1000 ML 1,000 ML IV SCH ×2 (02:31→05:04)
[2017-10-18] MEDS: FLAGYL IV PREMIX 500 MG BAG 500 MG/100 ML BAG IV SCH ×2 (02:51→08:46)
[2017-10-18 06:35] LABS: BASOPHILS % (AUTO) 0.1 % (0.2-1.0); HEMATOCRIT 41.7 % (42.0-54.0); HEMOGLOBIN 14.6 g/dL (13.5-18.0); LYMPHOCYTES # (AUTO) 0.9 X10^3/uL (1.3-2.9); LYMPHOCYTES % (AUTO) 10.4 % (21.0-51.0); MEAN CORPUSCULAR HEMOGLOBIN 31.5 pg (27.0-34.0); MEAN CORPUSCULAR VOLUME 90.1 fL (80.0-100.0); MEAN PLATELET VOLUME 8.7 fL (7.4-11.0); MONOCYTES # (AUTO) 0.4 x10^3/uL (0.3-0.8); MONOCYTES % (AUTO) 4.9 % (0.0-13.0); NEUTROPHILS # (AUTO) 7.7 x10^3/uL (2.2-4.8); NEUTROPHILS % (AUTO) 84.6 % (42.0-75.0); PLATELET COUNT 146 X10^3/uL (150.0-450.0); RED BLOOD COUNT 4.63 X10^6/uL (4.7-6.0); RED CELL DISTRIBUTION WIDTH 13.3 % (11.6-16.5); WHITE BLOOD COUNT 9.1 X10^3/uL (3.6-10.0)
--- NOTE | 2017-10-18 06:51 | DR.PROGNOT ---
Hospital Progress Notes - Progress Note for Day of: Progress Note Date: 10/18/17 - Chief Complaint Chief Complaint: having difficulty swallowing and Rt side abdominal pain . very anxious and restless .. no diarrhea or rectal bleeding . mouth rash is better . CT showed moderate colitis. - Past Medical Family Social History Past Med/Fam/Surg Hx: No changes since H&P Allergies: Allergies diphenhydramine Allergy (Verified 05/06/17 10:43) Penicillins Allergy (Verified 05/06/17 10:43) tramadol Allergy (Verified 05/06/17 10:43) vancomycin Allergy (Verified 05/18/17 21:58) RASH codeine Adverse Reaction (Mild, Verified 10/16/17 11:47) itching fluconazole [From Diflucan] Adverse Reaction (Verified 10/17/17 07:58) - Review Of Systems ROS: No change since H&P - Vital Signs Vital Signs: Temperature 97.7 F Pulse Rate [Right Brachial] 61 Respiratory Rate 18 Blood Pressure [Right Arm] 114/63 Blood Pressure [Left Arm] 97/52 Blood Pressure 99/56 O2 Sat by Pulse Oximetry 94 - Physical Exam Oriented: Normal Eyes: Normal Ear: Normal Nose: Normal Throat: Normal, Other (multiple mouth ulcers , mild cervical adenopathies ) Respiratory: Diminished Cardiovascular: Tachycardia. negative: Edema : Normal GI:Auscultation: Increased GI: Tenderness: RUQ, RLQ, LUQ, Epigastric Skin: Decreased Turgur, Rash (ERYTHEMATOUS RASH TO BILATERAL EARS) Musculoskeletal: Back:Thoracic, Back:Lumbar, Tender Affect: Anxious Speech Pattern: Clear, Appropriate - Laboratory and Diagnostics Result Diagrams: 10/18/17 05:26 10/17/17 06:00 Labs: Laboratory WBC 9.1 X10^3/uL (3.6-10.0) 10/18/17 05: RBC 4.63 X10^6/uL (4.7-6.0) L 10/18/17 05:26 Hgb 14.6 g/dL (13.5-18.0) 10/18/17 05:26 Hct 41.7 % (42.0-54.0) L 10/18/17 05:26 MCV 90.1 fL (80.0-100.0) 10/18/17 05:26 MCH 31.5 pg (27.0-34.0) 10/18/17 05:26 MCHC 35.0 g/dL (33.0-35.0) 10/18/17 05:26 RDW 13.3 % (11.6-16.5) 10/18/17 05:26 Plt Count 146 X10^3/uL (150.0-450.0) L 10/18/17 05:26 Plt Count Comment Adequate (ADEQUATE) 10/17/17 06:00 MPV 8.7 fL (7.4-11.0) 10/18/17 05:26 Neut % (Auto) 84.6 % (42.0-75.0) H 10/18/17 05:26 Lymph % (Auto) 10.4 % (21.0-51.0) L 10/18/17 05:26 [place] % (Auto) 4.9 % (0.0-13.0) 10/18/17 05:26 Eos % (Auto) 0.0 % (0.9-2.9) L 10/18/17 05:26 Baso % (Auto) 0.1 % (0.2-1.0) L 10/18/17 05:26 Neut # (Auto) 7.7 x10^3/uL (2.2-4.8) H 10/18/17 05:26 Lymph # (Auto) 0.9 X10^3/uL (1.3-2.9) L 10/18/17 05:26 [place] # (Auto) 0.4 x10^3/uL (0.3-0.8) 10/18/17 05:26 Eos # (Auto) 0.0 x10^3/uL (0.0-0.2) 10/18/17 05:26 Baso # (Auto) 0.0 X10^3/uL (0.0-0.1) 10/18/17 05:26 Absolute Nucleated RBC 0.0 /100WBC 10/18/17 05:26 Total Counted 100 10/17/17 06:00 Neutrophils % (Manual) 69 % (39-76) 10/17/17 06:00 Lymphocytes % (Manual) 26 % (13-43) 10/17/17 06:00 Monocytes % (Manual) 4 % (4-9) 10/17/17 06:00 Eosinophils % (Manual) 1 % (0-6) 10/17/17 06:00 Plt Morphology Comment Normal (NORMAL) 10/17/17 06:00 RBC Morphology Normal (NORMAL) 10/17/17 06:00 Sodium 138 mmol/L (136-145) 10/17/17 06:00 Corrected Sodium 139 mmol/L (136-145) 10/17/17 06:00 Potassium 4.2 mmol/L (3.5-5.1) 10/17/17 06:00 Chloride 106 mmol/L (98-107) 10/17/17 06:00 Carbon Dioxide 21.7 mmol/L (21-32) 10/17/17 06:00 BUN 17 mg/dL (7-18) 10/17/17 06:00 Creatinine 1.00 mg/dL (0.70-1.30) 10/17/17 06:00 Est GFR (MDRD) Af Amer > 60 (>60) 10/17/17 06:00 Est GFR (MDRD) Non-Af > 60 (>60) 10/17/17 06:00 Glucose 156 mg/dL (65-99) H 10/17/17 06:00 Calcium 8.1 mg/dL (8.5-10.1) L 10/17/17 06:00 Corrected Calcium 8.9 mg/dL (8.5-10.1) 10/17/17 06:00 Total Bilirubin 0.50 mg/dL (0.2-1.0) 10/17/17 06:00 AST 32 Units/L (15-37) 10/17/17 06:00 ALT 32 Units/L (12-78) 10/17/17 06:00 Alkaline Phosphatase 75 Units/L (46-116) 10/17/17 06:00 Total Protein 7.2 g/dL (6.4-8.2) 10/17/17 06:00 Albumin 3.0 g/dL (3.4-5.0) L 10/17/17 06:00 Globulin 4.2 g/dL (2.5-4.5) 10/17/17 06:00 Albumin/Globulin Ratio 0.7 Ratio (1.1-2.1) L 10/17/17 06:00 Amylase 82 Units/L (25-115) 10/16/17 11:19 Lipase 190 Units/L (73-393) 10/16/17 11:19 Specimen Type Clean catch urine 10/16/17 15:17 Urine Color Yellow (YELLOW) 10/16/17 15:17 Urine Appearance Clear (CLEAR) 10/16/17 15:17 Urine pH 5.0 (5.0 - 8.0) 10/16/17 15:17 Ur Specific [place] 1.005 (1.000-1.030) 10/16/17 15:17 Urine Protein 1+ (NEGATIVE) 10/16/17 15:17 Urine Glucose (UA) Negative (NEGATIVE) 10/16/17 15:17 Urine Ketones Negative (NEGATIVE) 10/16/17 15:17 Urine Occult Blood Negative (NEGATIVE) 10/16/17 15:17 Urine Nitrite Negative (NEGATIVE) 10/16/17 15:17 Urine Bilirubin Negative (NEGATIVE) 10/16/17 15:17 Urine Urobilinogen Normal (NORMAL) 10/16/17 15:17 Ur Leukocyte Esterase Negative (NEGATIVE) 10/16/17 15:17 Urine RBC 0-2 /HPF (NONE SEEN) 10/16/17 15:17 Urine WBC 0-2 /HPF (NONE SEEN) 10/16/17 15:17 Ur Squamous Epith Cells Negative /HPF (NEGATIVE) 10/16/17 15:17 Urine Bacteria Negative /HPF (NEGATIVE) 10/16/17 15:17 Ur Culture Indicated? No/not indicated 10/16/17 15:17 Urine Opiates Screen Negative (NEG=<300) 10/16/17 15:17 Urine Methadone Screen Negative (NEG=<300) 10/16/17 15:17 Ur Barbiturates Screen Negative (NEG=<200) 10/16/17 15:17 Ur Phencyclidine Scrn Negative (NEG=<25) 10/16/17 15:17 Ur Amphetamines Screen Negative (NEG=<1000) 10/16/17 15:17 U Benzodiazepines Scrn Negative (NEG=<200) 10/16/17 15:17 Urine Cocaine Screen Negative (NEG=<300) 10/16/17 15:17 U Marijuana (THC) Screen Positive (NEG=<50) A 10/16/17 15:17 - Assessment and Plan 1: abdominal pain ,Colitis. oral cadidiasia and esophagitis . anxiety. HIV + . same plan , future GI Endoscopy after controlling the infection - Problem Patient Problems: Patient Problems Abdominal pain (Acute) R10.9 Nausea, vomiting and diarrhea (Acute) R11.2, R19.7 Blood in stool (Acute) K92.1
[2017-10-18 06:52] LABS: ALANINE AMINOTRANSFERASE 30 Units/L (12-78); ALBUMIN 2.9 g/dL (3.4-5.0); ALKALINE PHOSPHATASE 68 Units/L (46-116); ASPARTATE AMINO TRANSFERASE 28 Units/L (15-37); BLOOD UREA NITROGEN 20 mg/dL (7-18); CARBON DIOXIDE 23.9 mmol/L (21-32); CHLORIDE 107 mmol/L (98-107); COR CA(FOR HYPOALB) 8.9 mg/dL (8.5-10.1); COR NA(FOR HYPERGLY) 140 mmol/L (136-145); CREATININE 1.08 mg/dL (0.70-1.30); SODIUM 140 mmol/L (136-145); TOTAL PROTEIN 6.9 g/dL (6.4-8.2); eGFR NON BLACK RACES > 60 (>60)
[2017-10-18] MEDS: CIPRO IV 400 MG PREMIX* 400 MG/200 ML IV.SOLN. IV SCH (08:45)
[2017-10-18] MEDS: NYSTATIN SUSP PO SCH (08:47)
[2017-10-18] MEDS: PROTONIX INJ 40 MG VIAL IVP SCH (08:47)
[2017-10-18] MEDS ORDERED: MILK OF MAGNESIA PO PRN (09:17)
[2017-10-18 09:20] VITALS: BP 113/72
[2017-10-18] MEDS ORDERED: COLACE CAP 100 MG PO SCH (21:00)
== END 2017-10-18 11:10 | disposition left against medical advice (07) | DRG 391 ==
LOC: MED/SURG → OBSVTOIN 10:51
PROVIDERS: ADMIT Internal Medicine; ATTEND Internal Medicine
DX: F41.8 Other specified anxiety disorders; K52.89 Other specified noninfective gastroenteritis and colitis; R53.1 Weakness; F12.980 Cannabis use, unspecified with anxiety disorder; R11.2 Nausea with vomiting, unspecified; R19.7 Diarrhea, unspecified; B37.0 Candidal stomatitis; B20 Human immunodeficiency virus [HIV] disease; R10.84 Generalized abdominal pain; K92.1 Melena
CPT/HCPCS: 36415; 74177; 80053; 80307; 81001; 82150; 82378; 83690; 85025; 85652; A4222; C9113; Q0177; S0030; G0434; J0744; J1100; J2060; J2270; J2405; J7030; J7050

== ENCOUNTER 2018-03-04 15:04 | Inpatient (IN) ==
[2018-03-04] MEDS ORDERED: TUSSIONEX PENNKINETIC SUSP PO PRN (15:29)
[2018-03-04 16:09] LABS: BASOPHILS % (AUTO) 2.2 % (0.2-1.0); EOSINOPHILS # (AUTO) 0.2 x10^3/uL (0.0-0.2); EOSINOPHILS % (AUTO) 7.1 % (0.9-2.9); HEMATOCRIT 28.8 % (42.0-54.0); LYMPHOCYTES # (AUTO) 0.7 X10^3/uL (1.3-2.9); LYMPHOCYTES % (AUTO) 32.5 % (21.0-51.0); MEAN CORPUSCULAR HEMOGLOBIN 32.1 pg (27.0-34.0); MEAN CORPUSCULAR HGB CONC 34.7 g/dL (33.0-35.0); MEAN CORPUSCULAR VOLUME 92.3 fL (80.0-100.0); MEAN PLATELET VOLUME 6.7 fL (7.4-11.0); MONOCYTES # (AUTO) 0.2 x10^3/uL (0.3-0.8); MONOCYTES % (AUTO) 9.5 % (0.0-13.0); NEUTROPHILS # (AUTO) 1.1 x10^3/uL (2.2-4.8); NEUTROPHILS % (AUTO) 48.7 % (42.0-75.0); PLATELET COUNT 261 X10^3/uL (150.0-450.0); RED BLOOD COUNT 3.12 X10^6/uL (4.7-6.0); WHITE BLOOD COUNT 2.2 X10^3/uL (3.6-10.0)
--- NOTE | 2018-03-04 16:17 | RAD ---
Exam: Chest two views History: 47-year-old male with fever. Possible pneumonia. Comparison: Previous chest radiograph from 06/24/2017. Findings: Borderline cardiomegaly is again seen. No significant vascular congestion however. Lungs are clear with no infiltrate or significant effusion on either side. Bony thorax is unremarkable as well. Impression: No acute cardiopulmonary abnormality is Reported By:
[2018-03-04 16:19] LABS: ALANINE AMINOTRANSFERASE 40 Units/L (12-78); ALBUMIN 3.5 g/dL (3.4-5.0); ALKALINE PHOSPHATASE 534 Units/L (46-116); ASPARTATE AMINO TRANSFERASE 39 Units/L (15-37); BLOOD UREA NITROGEN 15 mg/dL (7-18); CALCIUM 8.2 mg/dL (8.5-10.1); CARBON DIOXIDE 27.3 mmol/L (21-32); CHLORIDE 105 mmol/L (98-107); SODIUM 143 mmol/L (136-145); TOTAL PROTEIN 8.1 g/dL (6.4-8.2); eGFR NON BLACK RACES > 60 (>60)
[2018-03-04 16:45] LABS: BAND NEUTROPHILS % 8 % (0-10); METAMYELOCYTES % 3; MYELOCYTES % 1
[2018-03-04 16:46] LABS: ANISOCYTOSIS 1+; HYPOCHROMASIA SLIGHT; PLATELET MORPHOLOGY COMMENT NORMAL (NORMAL); POIKILOCYTOSIS SLIGHT
[2018-03-04] MEDS ORDERED: NS 1/2 1000 ML IV 1,000 ML IV ONE (16:50)
[2018-03-04] MEDS: DUONEB 0.5 MG/3 MG NEB SCH ×3 (17:00→21:20)
[2018-03-04] MEDS ORDERED: ACCUNEB 1.25 MG NEBULE NEB PRN (17:17)
[2018-03-04] MEDS: ROBITUSSIN DM PO SCH ×2 (17:21→20:49)
[2018-03-04] MEDS: LEVAQUIN PREMIX IV 750 MG 750 MG/150 ML BAG IV SCH (17:48)
[2018-03-04] MEDS: NS 1/2 1000 ML IV 1,000 ML IV SCH (17:48)
--- NOTE | 2018-03-04 17:51 | DR.H&P ---
H&P - History & Physical for Day of: H&P Date: 03/04/18 - Chief Complaint Chief Complaint: CCC, WHEEZING, SOB - History of Present Illness History of Present Illness: 47 WM DIRECT ADMIT FROM DR LORENZO OFFICE WITH BRONCHOPNEUMONIA. PT HAS PMH OF HIV WITH CD4 COUNT 29 2 WEEKS AGO. PT HAS HAD CCC WITH INCREASED WHEEZING AND SOB FOR 1-2 WEEKS. PT GIVEN LEVAQUIN PO AND NEBULIZER TREATMENTS ON OUTPT WITHOUT IMPROVEMENT. PT IS SCHEDULED FOR HEART OPERATION ON Feb AND NEED MEDICAL CLEARANCE PRIOR TO SURGERY PER DR SAUNDERS AT [facility]. PT HAS PMH OF HIV, OA, GERD, COPD, LILLI, MDD. PT ADMITTED FOR PNEUMONIA PROTOCOL - Past Medical History Past Medical History: Angina, Hypertension, Depression, Anxiety, COPD, Asthma, Migraines, Headaches Additional Medical History: HIV - Past Surgical History Surgical History: Other - Family History Family Medical History: Diabetes Mellitus, Cancer, [place] - Social History Does patient currently use any type of tobacco product: Yes Have you used tobacco products in the last 12 months: Yes Type of Tobacco Use: Cigarettes How many years tobacco product used: 35 Packs per day or dips/chews per day: 1 pack Does any household member use tobacco: No Alcohol Use: None Drug Use: None - Medications Home Medications: diphenhydramine Allergy (Verified 05/06/17 10:43) Penicillins Allergy (Verified 05/06/17 10:43) tramadol Allergy (Verified 05/06/17 10:43) vancomycin Allergy (Verified 05/18/17 21:58) RASH codeine Adverse Reaction (Mild, Verified 10/16/17 11:47) itching fluconazole [From Diflucan] Adverse Reaction (Verified 10/17/17 07:58) - Review of Systems Constitutional: Fever, Weakness, Malaise Eyes: No Symptoms Reported ENT: No Symptoms Reported Respiratory: Cough, Shortness of Breath, SOB with Excertion, Pleuritic Pain, Sputum, Wheezing Cardiovascular: No Symptoms Reported, Edema Gastrointestinal: Nausea, Vomiting Genitourinary: No Symptoms Reported Musculoskeletal: Back Pain, Neck Pain Skin: No Symptoms Reported Neurological: Weakness - Physical Exam Vital Signs: Pulse Rate 98 Blood Pressure [Right Arm] 100/57 Blood Pressure [Left Arm] 106/55 Blood Pressure 100/57 O2 Sat by Pulse Oximetry 98 Oriented: Normal Eyes: Normal Ear: Normal Nose: Normal Throat: Normal Respiratory: Rhonchi Throughout, Wheezes Throughout Cardiovascular: Normal : Normal Auscultation: Bowel Sounds: Normal Palpation: Normal Tenderness: Epigastric Skin: Normal Musculoskeletal: Back:Lumbar Psychiatric: Anxiety Affect: Anxious Speech Pattern: Clear, Appropriate - Assessment/Plan (1) Bronchopneumonia Status: Acute Plan: ADMIT, PNEUMONIA PROTOCOL, IV LEVAQUIN. BLOOD AND SPUTUM CULTURE ON ADMISSION. ADMISSION LABS, VERIFY HOME MEDICATION. RESP CONSULT, SUPPLEMENT O2 (2) COPD (chronic obstructive pulmonary disease) Status: Acute (3) Arthritis Status: Acute (4) HIV disease Status: Chronic - Allergies Allergies/Adverse Reactions: Allergies Allergy/AdvReac Type Severity Reaction Status Date / Time diphenhydramine Allergy Verified 05/06/17 10:43 Penicillins Allergy Verified 05/06/17 10:43 tramadol Allergy Verified 05/06/17 10:43 vancomycin Allergy RASH Verified 05/18/17 21:58 codeine AdvReac Mild itching Verified 10/16/17 11:47 fluconazole [From Diflucan] AdvReac Verified 10/17/17 07:58
[2018-03-04] MEDS ORDERED: SALINE 3% 15 ML NEB TX NEB ONE (19:08)
[2018-03-04] MEDS: PERCOCET TAB 5/325 MG PO PRN (20:49)
[2018-03-04] MEDS: NICOTINE PATCH TD SCH (20:50)
[2018-03-04] MEDS: COLACE CAP 100 MG PO SCH (20:50)
[2018-03-04] MEDS: BROVANA IN SCH (21:20)
[2018-03-04] MEDS: PULMICORT NEB TX 0.5 MG NEB SCH (21:20)
[2018-03-05] MEDS ORDERED: K-RIDER 10 MEQ/NS 100 ML 10 MEQ/100 ML BAG IV PRN (01:31)
[2018-03-05] MEDS ORDERED: POTASSIUM CHL 40 MEQ/NS 0.45% 500 ML IV PRN (01:31)
[2018-03-05] MEDS ORDERED: MICRO K EXTEN CAP 10 MEQ PO PRN (01:31)
[2018-03-05] MEDS ORDERED: KLOR-CON PO PRN (01:31)
[2018-03-05] MEDS ORDERED: POTASSIUM CHL 60 MEQ/NS 0.45% 500 ML IV PRN (01:31)
[2018-03-05] MEDS ORDERED: POTASSIUM CHLORIDE LIQ 20 MEQ UDC PO PRN (01:31)
[2018-03-05] MEDS: K-DUR TAB 20 MEQ PO PRN ×2 (01:36→01:50)
[2018-03-05] MEDS ORDERED: MAGNESIUM SULFATE 1 GRAM/100 mL PREMIX 2 G/200 ML BAG IV ONE (01:37)
[2018-03-05] MEDS: MAGNESIUM SULFATE 1 GRAM/100 mL PREMIX 1 GM/100 ML BAG IV PRN ×3 (01:37→02:45)
[2018-03-05] MEDS ORDERED: K-DUR TAB 20 MEQ PO ONE (01:37)
[2018-03-05] MEDS: PERCOCET TAB 5/325 MG PO PRN ×3 (05:22→19:07)
[2018-03-05 05:41] LABS: ALANINE AMINOTRANSFERASE 35 Units/L (12-78); ALKALINE PHOSPHATASE 449 Units/L (46-116); ASPARTATE AMINO TRANSFERASE 42 Units/L (15-37); BLOOD UREA NITROGEN 17 mg/dL (7-18); CARBON DIOXIDE 22.6 mmol/L (21-32); CHLORIDE 104 mmol/L (98-107); COR CA(FOR HYPOALB) 8.8 mg/dL (8.5-10.1); CREATININE 0.69 mg/dL (0.70-1.30); SODIUM 139 mmol/L (136-145); TOTAL PROTEIN 7.2 g/dL (6.4-8.2); eGFR NON BLACK RACES > 60 (>60)
[2018-03-05] MEDS: NS 1/2 1000 ML IV 1,000 ML IV SCH ×2 (06:23→21:00)
[2018-03-05 07:15] LABS: BASOPHILS % (AUTO) 1.7 % (0.2-1.0); EOSINOPHILS # (AUTO) 0.1 x10^3/uL (0.0-0.2); EOSINOPHILS % (AUTO) 4.8 % (0.9-2.9); HEMATOCRIT 29.2 % (42.0-54.0); HEMOGLOBIN 9.8 g/dL (13.5-18.0); LYMPHOCYTES # (AUTO) 0.8 X10^3/uL (1.3-2.9); LYMPHOCYTES % (AUTO) 40.9 % (21.0-51.0); MEAN CORPUSCULAR HEMOGLOBIN 31.5 pg (27.0-34.0); MEAN CORPUSCULAR HGB CONC 33.5 g/dL (33.0-35.0); MEAN CORPUSCULAR VOLUME 93.9 fL (80.0-100.0); MEAN PLATELET VOLUME 7.3 fL (7.4-11.0); MONOCYTES # (AUTO) 0.2 x10^3/uL (0.3-0.8); MONOCYTES % (AUTO) 11.5 % (0.0-13.0); NEUTROPHILS # (AUTO) 0.8 x10^3/uL (2.2-4.8); NEUTROPHILS % (AUTO) 41.1 % (42.0-75.0); PLATELET COUNT 225 X10^3/uL (150.0-450.0); RED BLOOD COUNT 3.11 X10^6/uL (4.7-6.0); RED CELL DISTRIBUTION WIDTH 21.6 % (11.6-16.5)
[2018-03-05 07:41] LABS: BAND NEUTROPHILS % 6 % (0-10)
[2018-03-05 07:42] LABS: ANISOCYTOSIS 1+; PLATELET MORPHOLOGY COMMENT NORMAL (NORMAL)
[2018-03-05] MEDS ORDERED: NS 1/2 1000 ML IV 0 ML IV ONE (08:36)
[2018-03-05 08:46] LABS: AMYLASE 194 Units/L (25-115); LIPASE 868 Units/L (73-393)
[2018-03-05] MEDS: LEVAQUIN PREMIX IV 750 MG 750 MG/150 ML BAG IV SCH (08:48)
[2018-03-05] MEDS: ROBITUSSIN DM PO SCH ×4 (08:48→22:26)
[2018-03-05] MEDS: NICOTINE PATCH TD SCH (08:49)
[2018-03-05] MEDS: DUONEB 0.5 MG/3 MG NEB SCH ×4 (09:37→21:10)
[2018-03-05] MEDS: BROVANA IN SCH ×2 (09:37→21:11)
[2018-03-05] MEDS: PULMICORT NEB TX 0.5 MG NEB SCH ×2 (09:37→21:11)
[2018-03-05] MEDS ORDERED: NS 1/2 1000 ML IV 1,000 ML IV ONE (21:18)
[2018-03-05] MEDS: COLACE CAP 100 MG PO SCH (21:25)
[2018-03-06 06:42] LABS: BASOPHILS % (AUTO) 1.6 % (0.2-1.0); EOSINOPHILS # (AUTO) 0.2 x10^3/uL (0.0-0.2); EOSINOPHILS % (AUTO) 8.4 % (0.9-2.9); HEMATOCRIT 30.7 % (42.0-54.0); HEMOGLOBIN 10.5 g/dL (13.5-18.0); LYMPHOCYTES # (AUTO) 0.6 X10^3/uL (1.3-2.9); LYMPHOCYTES % (AUTO) 31.1 % (21.0-51.0); MEAN CORPUSCULAR HEMOGLOBIN 32.3 pg (27.0-34.0); MEAN CORPUSCULAR HGB CONC 34.3 g/dL (33.0-35.0); MEAN CORPUSCULAR VOLUME 94.2 fL (80.0-100.0); MEAN PLATELET VOLUME 7.1 fL (7.4-11.0); MONOCYTES # (AUTO) 0.2 x10^3/uL (0.3-0.8); NEUTROPHILS % (AUTO) 48.9 % (42.0-75.0); PLATELET COUNT 229 X10^3/uL (150.0-450.0); RED BLOOD COUNT 3.26 X10^6/uL (4.7-6.0); RED CELL DISTRIBUTION WIDTH 22.3 % (11.6-16.5)
[2018-03-06 06:46] LABS: ALANINE AMINOTRANSFERASE 33 Units/L (12-78); ALBUMIN 3.2 g/dL (3.4-5.0); ALKALINE PHOSPHATASE 455 Units/L (46-116); ASPARTATE AMINO TRANSFERASE 37 Units/L (15-37); BLOOD UREA NITROGEN 12 mg/dL (7-18); CALCIUM 8.5 mg/dL (8.5-10.1); CARBON DIOXIDE 21.5 mmol/L (21-32); CHLORIDE 104 mmol/L (98-107); COR CA(FOR HYPOALB) 9.1 mg/dL (8.5-10.1); CREATININE 0.64 mg/dL (0.70-1.30); SODIUM 139 mmol/L (136-145); TOTAL PROTEIN 7.6 g/dL (6.4-8.2); eGFR NON BLACK RACES > 60 (>60)
[2018-03-06] MEDS: PERCOCET TAB 5/325 MG PO PRN ×2 (06:46→19:24)
[2018-03-06 07:22] LABS: BAND NEUTROPHILS % 8 % (0-10)
[2018-03-06 07:23] LABS: ANISOCYTOSIS 2+; PLATELET MORPHOLOGY COMMENT NORMAL (NORMAL)
[2018-03-06] MEDS: LEVAQUIN PREMIX IV 750 MG 750 MG/150 ML BAG IV SCH (08:45)
[2018-03-06] MEDS: NICOTINE PATCH TD SCH (08:45)
[2018-03-06] MEDS: PULMICORT NEB TX 0.5 MG NEB SCH ×2 (08:56→20:40)
[2018-03-06] MEDS: BROVANA IN SCH ×2 (08:56→20:40)
[2018-03-06] MEDS: DUONEB 0.5 MG/3 MG NEB SCH ×4 (08:56→20:40)
--- NOTE | 2018-03-06 09:53 | US ---
HISTORY: Upper abdominal pain. Nausea and vomiting. Study: Right upper quadrant abdominal ultrasound Comparison: None. Technique: Multiple horne scale and color flow Doppler images of the right upper quadrant were obtained. Findings: The liver is normal in echotexture and size. No focal intraparenchymal mass or intrahepatic biliary ductal dilatation can be observed. The gallbladder fails to demonstrate evidence for cholelithiasis or layering sludge. The common bile duct is unremarkable measuring 5 mm. No pericholecystic fluid or gallbladder wall thickening can be observed. The CBD measures within normal limits. There is appropriate hepatopetal flow seen in the main portal vein. There is appropriate flow in the hepatic artery and visualized hepatic veins. The right kidney appears normal in size without focal parenchymal mass or nephrolithiasis. The right kidney measurers 10 x 5 x 5 cm. No hydronephrosis or perirenal fluid can be observed. The pancreatic head and body are unremarkable. The pancreatic tail is largely obscured by overlying bowel gas. IMPRESSION: 1. Unremarkable examination of the right upper quadrant. Reported By:
[2018-03-06] MEDS: ROBITUSSIN DM PO SCH ×4 (10:22→21:35)
[2018-03-06] MEDS: NS 1/2 1000 ML IV 1,000 ML IV SCH (10:23)
[2018-03-06] MEDS ORDERED: ATIVAN TAB 0.5 MG PO PRN (12:49)
--- NOTE | 2018-03-06 15:49 | CT ---
HISTORY: Upper abdominal pain with nausea and vomiting. Study: CT abdomen and pelvis with contrast Comparison: CT abdomen/pelvis dated February 14, 2018 and right upper quadrant ultrasound dated March 06, 2018. Technique: Multiple axial images of the abdomen and pelvis were obtained from the lung bases to the pubic symphysis after the administration of IV contrast. Dose reduction techniques including Automated Exposure Control (AEC) and adjustment of mA and kV were utilized. Findings: The visualized portions of the lung bases are unremarkable. The liver, spleen, pancreas, kidneys, and adrenal glands are unremarkable in their CT appearance. The gallbladder is unremarkable in its CT appearance. No significant mesenteric lymphadenopathy or stranding can be observed. No free fluid or free air is seen within the abdomen. The large and small bowel appear normal. The appendix appears normal. The prostate gland is unremarkable. Scattered vascular calcifications without evidence of aneurysmal dilatation. The urinary bladder is grossly unremarkable. Degenerative changes of the spine. No aggressive osseous lesions. IMPRESSION: No CT evidence of acute abdominal/pelvic pathology. Reported By:
--- NOTE | 2018-03-06 17:11 | PCM.PROG ---
Progress Note - Progress Note for Day of Date of Exam: 03/05/18 - Subjective Subjective: 47 WM ADMITTED ON 03/04 WITH BRONCHITIS R/O PNEUMONIA, N/V ABDOMINAL PAIN WITH WEIGHT LOSS. PT CXR ON ADMISSION W/O INFILTRATE, SPUTUM AND BLOOD CULTURES COLLECTED ON ADMISSION, RESULTS PENDING. PT CONTINUES WITH IV ATBX AND RESP THERAPY. PT HAS ELEVATED AMYLASE 194 AND LIPASE 868, ALK [id number]. LIVER US ORDERED Q AM, CONTINUE WITH GENTLE HYDRATION AM LABS - Past Medical Family Social History Past Med/Fam/Surg Hx: No changes since H&P Allergies: Allergies diphenhydramine Allergy (Verified 05/06/17 10:43) Penicillins Allergy (Verified 05/06/17 10:43) tramadol Allergy (Verified 05/06/17 10:43) vancomycin Allergy (Verified 05/18/17 21:58) RASH codeine Adverse Reaction (Mild, Verified 10/16/17 11:47) itching fluconazole [From Diflucan] Adverse Reaction (Verified 10/17/17 07:58) - Review of Systems ROS: No change since H&P - Vital Signs and I&O's Vital Signs: Temperature 98.2 F Pulse Rate [Left Brachial] 101 Pulse Rate 90 Respiratory Rate 20 Blood Pressure [Right Arm] 117/83 Blood Pressure [Left Arm] 120/85 Blood Pressure 100/57 O2 Sat by Pulse Oximetry 98 Intake and Output: Intake & Output 03/04/18 03/05/18 03/06/18 03/07/18 11:59 11:59 11:59 11:59 Intake Total 2029 3640 / 3640 0 / 0 Balance 2029 3640 / 3640 0 / 0 - Physical Exam Oriented: Normal Eyes: Normal Ear: Normal Nose: Normal Throat: Normal Respiratory: Diminished, Rhonchi Cardiovascular: Normal : Normal Auscultation: Bowel Sounds: Normal Tenderness: Epigastric Skin: Normal Musculoskeletal: Back:Lumbar Psychiatric: Anxiety Affect: Anxious Speech Pattern: Clear, Appropriate - Laboratory and Diagnostics Result Diagrams: 03/06/18 05:13 03/06/18 05:13 Labs: 03/04/18 16:00 Blood Blood Culture - Preliminary 03/04/18 15:55 Blood Blood Culture - Preliminary 03/04/18 19:27 Sputum - Expectorated Sputum Sputum Culture - Final 03/04/18 19:27 Sputum - Expectorated Sputum - Final Laboratory WBC 2.0 X10^3/uL (3.6-10.0) L 03/06/18 05:13 RBC 3.26 X10^6/uL (4.7-6.0) L 03/06/18 05:13 Hgb 10.5 g/dL (13.5-18.0) L 03/06/18 05:13 Hct 30.7 % (42.0-54.0) L 03/06/18 05:13 MCV 94.2 fL (80.0-100.0) 03/06/18 05:13 MCH 32.3 pg (27.0-34.0) 03/06/18 05:13 MCHC 34.3 g/dL (33.0-35.0) 03/06/18 05:13 RDW 22.3 % (11.6-16.5) H 03/06/18 05:13 Plt Count 229 X10^3/uL (150.0-450.0) 03/06/18 05:13 Plt Count Comment Adequate (ADEQUATE) 03/06/18 05:13 MPV 7.1 fL (7.4-11.0) L 03/06/18 05:13 Neut % (Auto) 48.9 % (42.0-75.0) 03/06/18 05:13 Lymph % (Auto) 31.1 % (21.0-51.0) 03/06/18 05:13 [place] % (Auto) 10.0 % (0.0-13.0) 03/06/18 05:13 Eos % (Auto) 8.4 % (0.9-2.9) H 03/06/18 05:13 Baso % (Auto) 1.6 % (0.2-1.0) H 03/06/18 05:13 Neut # (Auto) 1.0 x10^3/uL (2.2-4.8) L 03/06/18 05:13 Lymph # (Auto) 0.6 X10^3/uL (1.3-2.9) L 03/06/18 05:13 [place] # (Auto) 0.2 x10^3/uL (0.3-0.8) L 03/06/18 05:13 Eos # (Auto) 0.2 x10^3/uL (0.0-0.2) 03/06/18 05:13 Baso # (Auto) 0.0 X10^3/uL (0.0-0.1) 03/06/18 05:13 Absolute Nucleated RBC 0.5 /100WBC 03/06/18 05:13 Total Counted 100 03/06/18 05:13 Neutrophils % (Manual) 40 % (39-76) 03/06/18 05:13 Band Neutrophils % 8 % (0-10) 03/06/18 05:13 Lymphocytes % (Manual) 39 % (13-43) 03/06/18 05:13 Monocytes % (Manual) 13 % (4-9) H 03/06/18 05:13 Eosinophils % (Manual) 4 % (0-6) 03/05/18 06:09 Metamyelocytes % 3 03/04/18 15:55 Myelocytes % 1 03/04/18 15:55 Plt Morphology Comment Normal (NORMAL) 03/06/18 05:13 RBC Morphology Abnormal (NORMAL) 03/06/18 05:13 Hypochromasia Slight A 03/04/18 15:55 Poikilocytosis Slight A 03/04/18 15:55 Anisocytosis 2+ A 03/06/18 05:13 Sodium 139 mmol/L (136-145) 03/06/18 05:13 Corrected Sodium TNP 03/06/18 05:13 Potassium 3.8 mmol/L (3.5-5.1) 03/06/18 05:13 Chloride 104 mmol/L (98-107) 03/06/18 05:13 Carbon Dioxide 21.5 mmol/L (21-32) 03/06/18 05:13 BUN 12 mg/dL (7-18) 03/06/18 05:13 Creatinine 0.64 mg/dL (0.70-1.30) L 03/06/18 05:13 Est GFR (MDRD) Af Amer > 60 (>60) 03/06/18 05:13 Est GFR (MDRD) Non-Af > 60 (>60) 03/06/18 05:13 Glucose 85 mg/dL (65-99) 03/06/18 05:13 Calcium 8.5 mg/dL (8.5-10.1) 03/06/18 05:13 Corrected Calcium 9.1 mg/dL (8.5-10.1) 03/06/18 05:13 Magnesium 2.2 mg/dL (1.7-2.9) 03/05/18 04:52 Total Bilirubin 0.50 mg/dL (0.2-1.0) 03/06/18 05:13 AST 37 Units/L (15-37) 03/06/18 05:13 ALT 33 Units/L (12-78) 03/06/18 05:13 Alkaline Phosphatase 455 Units/L (46-116) H 03/06/18 05:13 Total Protein 7.6 g/dL (6.4-8.2) 03/06/18 05:13 Albumin 3.2 g/dL (3.4-5.0) L 03/06/18 05:13 Globulin 4.4 g/dL (2.5-4.5) 03/06/18 05:13 Albumin/Globulin Ratio 0.7 Ratio (1.1-2.1) L 03/06/18 05:13 Amylase 194 Units/L (25-115) H 03/05/18 04:52 Lipase 868 Units/L (73-393) H 03/05/18 04:52 - Plan (1) Bronchopneumonia Status: Acute Plan: PNEUMONIA PROTOCOL, IV LEVAQUIN. BLOOD AND SPUTUM CULTURE ON ADMISSION. AM LABS, REPEAT AMYLASE AND LIPASE, PAIN AND NAUSEA CONTROL. RESP CARE, SUPPLEMENT O2. LIVER US, LILLI MANAGEMENT (2) COPD (chronic obstructive pulmonary disease) Status: Acute (3) Arthritis Status: Acute (4) HIV disease Status: Chronic (5) Pancreatitis Status: Acute (6) Anxiety Status: Chronic (7) History of HIV infection Status: Chronic (8) Seizure disorder Status: Chronic
[2018-03-06] MEDS ORDERED: NS 1/2 1000 ML IV 1,000 ML IV ONE (17:42)
[2018-03-06] MEDS: COLACE CAP 100 MG PO SCH (21:35)
[2018-03-07] MEDS: NS 1/2 1000 ML IV 1,000 ML IV SCH (03:28)
[2018-03-07] MEDS: PERCOCET TAB 5/325 MG PO PRN (05:41)
[2018-03-07 06:29] LABS: BASOPHILS % (AUTO) 2.1 % (0.2-1.0); EOSINOPHILS # (AUTO) 0.2 x10^3/uL (0.0-0.2); EOSINOPHILS % (AUTO) 9.3 % (0.9-2.9); HEMATOCRIT 29.3 % (42.0-54.0); HEMOGLOBIN 10.2 g/dL (13.5-18.0); LYMPHOCYTES # (AUTO) 0.7 X10^3/uL (1.3-2.9); LYMPHOCYTES % (AUTO) 34.7 % (21.0-51.0); MEAN CORPUSCULAR HEMOGLOBIN 32.4 pg (27.0-34.0); MEAN CORPUSCULAR HGB CONC 34.8 g/dL (33.0-35.0); MEAN CORPUSCULAR VOLUME 93.1 fL (80.0-100.0); MEAN PLATELET VOLUME 7.1 fL (7.4-11.0); MONOCYTES # (AUTO) 0.2 x10^3/uL (0.3-0.8); MONOCYTES % (AUTO) 7.8 % (0.0-13.0); NEUTROPHILS # (AUTO) 0.9 x10^3/uL (2.2-4.8); NEUTROPHILS % (AUTO) 46.1 % (42.0-75.0); PLATELET COUNT 239 X10^3/uL (150.0-450.0); RED BLOOD COUNT 3.15 X10^6/uL (4.7-6.0); RED CELL DISTRIBUTION WIDTH 21.7 % (11.6-16.5)
[2018-03-07 06:37] LABS: WHITE BLOOD COUNT 1.9 X10^3/uL (3.6-10.0)
[2018-03-07 06:41] LABS: ALANINE AMINOTRANSFERASE 33 Units/L (12-78); ALBUMIN 3.2 g/dL (3.4-5.0); ALKALINE PHOSPHATASE 417 Units/L (46-116); AMYLASE 158 Units/L (25-115); ASPARTATE AMINO TRANSFERASE 34 Units/L (15-37); BLOOD UREA NITROGEN 17 mg/dL (7-18); CALCIUM 8.7 mg/dL (8.5-10.1); CARBON DIOXIDE 22.9 mmol/L (21-32); CHLORIDE 105 mmol/L (98-107); COR CA(FOR HYPOALB) 9.3 mg/dL (8.5-10.1); CREATININE 0.74 mg/dL (0.70-1.30); LIPASE 497 Units/L (73-393); SODIUM 142 mmol/L (136-145); TOTAL PROTEIN 7.4 g/dL (6.4-8.2); eGFR NON BLACK RACES > 60 (>60)
[2018-03-07 07:01] LABS: PLATELET MORPHOLOGY COMMENT NORMAL (NORMAL)
[2018-03-07 07:13] LABS: BAND NEUTROPHILS % 5 % (0-10)
[2018-03-07 07:15] LABS: ANISOCYTOSIS 1+
[2018-03-07 07:30] LABS: METAMYELOCYTES % 3
[2018-03-07] MEDS: PULMICORT NEB TX 0.5 MG NEB SCH (08:37)
[2018-03-07] MEDS: DUONEB 0.5 MG/3 MG NEB SCH (08:37)
[2018-03-07] MEDS: BROVANA IN SCH (08:37)
[2018-03-07] MEDS: ROBITUSSIN DM PO SCH (09:39)
[2018-03-07] MEDS: LEVAQUIN PREMIX IV 750 MG 750 MG/150 ML BAG IV SCH (09:39)
[2018-03-07] MEDS: NICOTINE PATCH TD SCH (09:40)
[2018-03-07] MEDS ORDERED: NYSTATIN SUSP MT SCH (10:00)
[2018-03-07 11:11] VITALS: BP 125/84
== END 2018-03-07 11:10 | disposition home or self-care (01) | DRG 193 ==
LOC: MED/SURG 15:35
PROVIDERS: ADMIT Internal Medicine; ATTEND Internal Medicine
DX: B20 Human immunodeficiency virus [HIV] disease; G40.802 Other epilepsy, not intractable, without status epilepticus; D72.818 Other decreased white blood cell count; F41.8 Other specified anxiety disorders; R11.2 Nausea with vomiting, unspecified; R06.02 Shortness of breath; R10.84 Generalized abdominal pain; J18.0 Bronchopneumonia, unspecified organism; J44.1 Chronic obstructive pulmonary disease with (acute) exacerbation; M50.30 Other cervical disc degeneration, unspecified cervical region; K85.80 Other acute pancreatitis without necrosis or infection; M13.89 Other specified arthritis, multiple sites; R63.4 Abnormal weight loss
CPT/HCPCS: 36415; 71020; 71046; 74177; 76705; 80053; 82150; 83690; 83735; 85025; 87040; 87070; 87205; 94640; 94760; A4222; J1956; J3475; J7613; J7620; J7626

== ENCOUNTER 2018-10-16 09:00 | Inpatient (IN) ==
[~2018-10-16 09:00] MED LIST changes: -ANCEF 1 GM IV PREMIX* 1 GM/50 ML BAG IV ONE; +CATAPRES TAB 0.1 MG ONE; +CRESTOR TAB 10 MG PO ONE; -DIPRIVAN VIAL ONE; +DITROPAN TAB 5 MG PO ONE; +EFFEXOR XR 75 MG CAP ONE; -FENTANYL INJ 100 mcg ONE; +FORTAZ or TAZICEF VIAL INJ ONE; +GLUCOPHAGE ONE; +KCL IV ONE; -KETALAR ONE; -LR 1000 ML IV 1,000 ML IV ONE; +MAGIC MOUTHWASH ONE; +MAGNESIUM SULFATE 1 GRAM/100 mL PREMIX IV ONE; +NORCO 5/325 MG TAB PO ONE; +NS 1000 ML ONE; -NS 250 ML IV 250 ML IV ONE; -NS IRRIGATION 1000 ML 1,000 ML with BACITRACIN VIAL 50,000 UNT IR ONE; +NS IV ONE; +POTASSIUM CHLORIDE INJ 40 MEQ VIAL ONE; +ROBITUSSIN CF SYRUP ONE; +ROBITUSSIN DM ONE; +UNIPHYL TAB 400 MG ONE; +VALIUM ONE; +VANCOMYCIN 1 GM ONE; +VANCOMYCIN HCL 1 GM VIAL IV ONE; -VERSED ONE; -XYLOCAINE 1% and EPINEPHRINE 1:100,000 ONE
[2018-10-16] MEDS ORDERED: K-LYTE EFFERVESCENT PO ONE (11:50)
[2018-10-16] MEDS ORDERED: NS IV ONE (14:00)
[2018-10-16] MEDS ORDERED: KCL IV ONE (14:00)
[2018-10-16] MEDS ORDERED: VANCOMYCIN HCL 1 GM VIAL IV ONE (21:00)
[2018-10-16] MEDS ORDERED: NORCO 5/325 MG TAB PO ONE (21:40)
[2018-10-17 06:50] LABS: BASOPHILS % (AUTO) 0.9 % (0.2-1.0); EOSINOPHILS # (AUTO) 0.3 x10^3/uL (0.0-0.2); EOSINOPHILS % (AUTO) 7.3 % (0.9-2.9); HEMATOCRIT 33.3 % (42.0-54.0); HEMOGLOBIN 11.7 g/dL (13.5-18.0); LYMPHOCYTES # (AUTO) 1.9 X10^3/uL (1.3-2.9); LYMPHOCYTES % (AUTO) 50.7 % (21.0-51.0); MEAN CORPUSCULAR HGB CONC 35.1 g/dL (33.0-35.0); MEAN PLATELET VOLUME 7.3 fL (7.4-11.0); MONOCYTES # (AUTO) 0.3 x10^3/uL (0.3-0.8); MONOCYTES % (AUTO) 8.1 % (0.0-13.0); NEUTROPHILS # (AUTO) 1.2 x10^3/uL (2.2-4.8); PLATELET COUNT 147 X10^3/uL (150.0-450.0); RED BLOOD COUNT 3.66 X10^6/uL (4.7-6.0); RED CELL DISTRIBUTION WIDTH 16.3 % (11.6-16.5); WHITE BLOOD COUNT 3.7 X10^3/uL (3.6-10.0)
[2018-10-17 07:07] LABS: ALANINE AMINOTRANSFERASE 15 Units/L (12-78); ALBUMIN 2.8 g/dL (3.4-5.0); ALKALINE PHOSPHATASE 132 Units/L (46-116); ASPARTATE AMINO TRANSFERASE 26 Units/L (15-37); BLOOD UREA NITROGEN 13 mg/dL (7-18); CALCIUM 7.6 mg/dL (8.5-10.1); CARBON DIOXIDE 25.1 mmol/L (21-32); CHLORIDE 109 mmol/L (98-107); COR CA(FOR HYPOALB) 8.6 mg/dL (8.5-10.1); CREATININE 0.88 mg/dL (0.70-1.30); SODIUM 142 mmol/L (136-145); TOTAL PROTEIN 7.1 g/dL (6.4-8.2); eGFR NON BLACK RACES > 60 (>60)
[2018-10-17] MEDS ORDERED: VANCOMYCIN HCL 1 GM VIAL 1 G in D5W 250 ML IV 250 ML IV SCH (09:00)
[2018-10-17 09:13] LABS: SODIUM 142 mmol/L (136-145)
[2018-10-17 09:14] LABS: BLOOD UREA NITROGEN 9 mg/dL (7-18); CARBON DIOXIDE 21.5 mmol/L (21-32); CHLORIDE 110 mmol/L (98-107); CREATININE 0.87 mg/dL (0.70-1.30); eGFR NON BLACK RACES > 60 (>60)
[2018-10-17 09:15] LABS: CALCIUM 7.5 mg/dL (8.5-10.1); HEMATOCRIT 31.8 % (42.0-54.0); HEMOGLOBIN 11.2 g/dL (13.5-18.0); MAGNESIUM 1.9 mg/dL (1.7-2.9); MEAN CORPUSCULAR VOLUME 91.5 fL (80.0-100.0); RED BLOOD COUNT 3.48 X10^6/uL (4.7-6.0); WHITE BLOOD COUNT 3.3 X10^3/uL (3.6-10.0)
[2018-10-17 09:16] LABS: BASOPHILS % (AUTO) 1.2 % (0.2-1.0); EOSINOPHILS # (AUTO) 0.3 x10^3/uL (0.0-0.2); EOSINOPHILS % (AUTO) 8.5 % (0.9-2.9); LYMPHOCYTES # (AUTO) 1.6 X10^3/uL (1.3-2.9); LYMPHOCYTES % (AUTO) 48.1 % (21.0-51.0); MEAN CORPUSCULAR HEMOGLOBIN 32.2 pg (27.0-34.0); MEAN CORPUSCULAR HGB CONC 35.2 g/dL (33.0-35.0); MEAN PLATELET VOLUME 7.3 fL (7.4-11.0); MONOCYTES # (AUTO) 0.3 x10^3/uL (0.3-0.8); MONOCYTES % (AUTO) 9.4 % (0.0-13.0); NEUTROPHILS # (AUTO) 1.1 x10^3/uL (2.2-4.8); NEUTROPHILS % (AUTO) 32.8 % (42.0-75.0); PLATELET COUNT 142 X10^3/uL (150.0-450.0); RED CELL DISTRIBUTION WIDTH 16.3 % (11.6-16.5)
[2018-10-17 09:18] LABS: SODIUM 144 mmol/L (136-145)
[2018-10-17 09:21] LABS: ALANINE AMINOTRANSFERASE 25 Units/L (12-78); ASPARTATE AMINO TRANSFERASE 25 Units/L (15-37); BLOOD UREA NITROGEN 11 mg/dL (7-18); CALCIUM 8.4 mg/dL (8.5-10.1); CARBON DIOXIDE 24.3 mmol/L (21-32); CHLORIDE 107 mmol/L (98-107); eGFR NON BLACK RACES > 60 (>60)
[2018-10-17 09:22] LABS: ALBUMIN 3.8 g/dL (3.4-5.0); ALKALINE PHOSPHATASE 163 Units/L (46-116); MAGNESIUM 1.6 mg/dL (1.7-2.9); TOTAL PROTEIN 9.2 g/dL (6.4-8.2)
[2018-10-17 09:24] LABS: WHITE BLOOD COUNT 3.5 X10^3/uL (3.6-10.0)
[2018-10-17 09:27] LABS: HEMATOCRIT 35.3 % (42.0-54.0); HEMOGLOBIN 12.2 g/dL (13.5-18.0); MEAN CORPUSCULAR HEMOGLOBIN 31.8 pg (27.0-34.0); MEAN CORPUSCULAR HGB CONC 34.4 g/dL (33.0-35.0); MEAN CORPUSCULAR VOLUME 92.5 fL (80.0-100.0); MEAN PLATELET VOLUME 7.5 fL (7.4-11.0); NEUTROPHILS % (AUTO) 37.5 % (42.0-75.0); PLATELET COUNT 160 X10^3/uL (150.0-450.0); RED BLOOD COUNT 3.82 X10^6/uL (4.7-6.0); RED CELL DISTRIBUTION WIDTH 16.3 % (11.6-16.5)
[2018-10-17 09:28] LABS: BASOPHILS # (AUTO) 0.1 X10^3/uL (0.0-0.1); BASOPHILS % (AUTO) 1.8 % (0.2-1.0); EOSINOPHILS # (AUTO) 0.3 x10^3/uL (0.0-0.2); EOSINOPHILS % (AUTO) 7.4 % (0.9-2.9); LYMPHOCYTES # (AUTO) 1.6 X10^3/uL (1.3-2.9); LYMPHOCYTES % (AUTO) 45.3 % (21.0-51.0); MONOCYTES # (AUTO) 0.3 x10^3/uL (0.3-0.8); NEUTROPHILS # (AUTO) 1.3 x10^3/uL (2.2-4.8); PLATELET MORPHOLOGY COMMENT NORMAL (NORMAL)
[2018-10-17 09:47] LABS: VANCOMYCIN,TROUGH 13.1 ug/mL (15-20)
[2018-10-17 09:48] LABS: CREATININE 0.88 mg/dL (0.70-1.30)
[2018-10-17] MEDS ORDERED: NS + KCL 40 MEQ/L 1,000 ML IV SCH (14:00)
[2018-10-17] MEDS: NS 1000 ML 1,000 ML IV SCH ×2 (14:21→23:09)
[2018-10-17] MEDS: CLEOCIN PO SCH ×2 (14:21→21:33)
[2018-10-17] MEDS ORDERED: POTASSIUM CHL 40 MEQ/NS 0.45% 500 ML 40 MEQ/500 ML BAG IV PRN (14:49)
[2018-10-17] MEDS ORDERED: POTASSIUM CHLORIDE LIQ 20 MEQ UDC PO PRN (14:49)
[2018-10-17] MEDS ORDERED: POTASSIUM CHL 60 MEQ/NS 0.45% 500 ML 60 MEQ/500 ML BAG IV PRN (14:49)
[2018-10-17] MEDS ORDERED: K-RIDER 10 MEQ/NS 100 ML 10 MEQ/100 ML BAG IV PRN (14:49)
[2018-10-17] MEDS ORDERED: K-LYTE EFFERVESCENT PO PRN (14:49)
--- NOTE | 2018-10-17 17:37 | PCM.PROG ---
Progress Note - Progress Note for Day of Date of Exam: 10/17/18 - Subjective Subjective: The patient is a 47 yo WM who continues to complain of dizziness. Complains of dizziness when standing for 2-3 weeks. Continues to voice thoughts that he can't take it any more and voices thoughts of jumping out in front of a vehicle. Still wishes to have seek treatment. Patient did become argumentative and aggressive when informed CT Head and labs have been normal. - Past Medical Family Social History Past Med/Fam/Surg Hx: No changes since H&P Allergies: Allergies Penicillins Allergy (Verified 09/03/18 11:40) tramadol Allergy (Verified 09/03/18 11:40) codeine Adverse Reaction (Mild, Verified 09/03/18 11:40) itching diphenhydramine Adverse Reaction (Mild, Verified 10/17/18 07:00) RED MAN fluconazole [From Diflucan] Adverse Reaction (Verified 09/03/18 11:40) - Review of Systems ROS: No change since H&P - Vital Signs and I&O's Vital Signs: Blood Pressure [Right Arm] 125/84 Blood Pressure [Left Arm] 100/71 Blood Pressure 100/71 Intake and Output: Intake & Output 10/14/18 10/15/18 10/16/18 10/17/18 23:59 23:59 23:59 23:59 Intake Total 1320 / 1320 Output Total 1999 Balance -680 / -680 - Physical Exam Oriented: Normal Eyes: Normal Ear: Normal Nose: Normal Throat: Normal Respiratory: Normal Cardiovascular: Normal : Normal Auscultation: Bowel Sounds: Normal Palpation: Normal Tenderness: Normal Skin: Wound (multiuple open lesions to bilateral lower extremities) Musculoskeletal: Normal Psychiatric: Agitation Mood Description: Angry Affect: Angry Speech Pattern: Clear - Laboratory and Diagnostics Result Diagrams: 10/17/18 05:15 10/17/18 08:07 Labs: 10/15/18 19:33 Blood Blood Culture - Preliminary 10/15/18 19:30 Blood Blood Culture - Preliminary Laboratory WBC 3.7 X10^3/uL (3.6-10.0) 10/17/18 05:15 RBC 3.66 X10^6/uL (4.7-6.0) L 10/17/18 05:15 Hgb 11.7 g/dL (13.5-18.0) L 10/17/18 05:15 Hct 33.3 % (42.0-54.0) L 10/17/18 05:15 MCV 91.0 fL (80.0-100.0) 10/17/18 05:15 MCH 32.0 pg (27.0-34.0) 10/17/18 05:15 MCHC 35.1 g/dL (33.0-35.0) H 10/17/18 05:15 RDW 16.3 % (11.6-16.5) 10/17/18 05:15 Plt Count 147 X10^3/uL (150.0-450.0) L 10/17/18 05:15 Plt Count Comment Adequate (ADEQUATE) 10/15/18 19:30 MPV 7.3 fL (7.4-11.0) L 10/17/18 05:15 Neut % (Auto) 33.0 % (42.0-75.0) L 10/17/18 05:15 Lymph % (Auto) 50.7 % (21.0-51.0) 10/17/18 05:15 [place] % (Auto) 8.1 % (0.0-13.0) 10/17/18 05:15 Eos % (Auto) 7.3 % (0.9-2.9) H 10/17/18 05:15 Baso % (Auto) 0.9 % (0.2-1.0) 10/17/18 05:15 Neut # (Auto) 1.2 x10^3/uL (2.2-4.8) L 10/17/18 05:15 Lymph # (Auto) 1.9 X10^3/uL (1.3-2.9) 10/17/18 05:15 [place] # (Auto) 0.3 x10^3/uL (0.3-0.8) 10/17/18 05:15 Eos # (Auto) 0.3 x10^3/uL (0.0-0.2) H 10/17/18 05:15 Baso # (Auto) 0.0 X10^3/uL (0.0-0.1) 10/17/18 05:15 Absolute Nucleated RBC 0.1 /100WBC 10/17/18 05:15 Plt Morphology Comment Normal (NORMAL) 10/15/18 19:30 RBC Morphology Normal (NORMAL) 10/15/18 19:30 Sodium 142 mmol/L (136-145) 10/17/18 05:15 Corrected Sodium TNP 10/17/18 05:15 Potassium 3.4 mmol/L (3.5-5.1) L 10/17/18 05:15 Chloride 109 mmol/L (98-107) H 10/17/18 05:15 Carbon Dioxide 25.1 mmol/L (21-32) 10/17/18 05:15 BUN 13 mg/dL (7-18) 10/17/18 05:15 Creatinine 0.88 mg/dL (0.70-1.30) 10/17/18 08:07 Est GFR (MDRD) Af Amer > 60 (>60) 10/17/18 05:15 Est GFR (MDRD) Non-Af > 60 (>60) 10/17/18 05:15 Glucose 84 mg/dL (65-99) 10/17/18 05:15 Calcium 7.6 mg/dL (8.5-10.1) L 10/17/18 05:15 Corrected Calcium 8.6 mg/dL (8.5-10.1) 10/17/18 05:15 Magnesium 1.9 mg/dL (1.7-2.9) 10/16/18 05:11 Total Bilirubin 0.40 mg/dL (0.2-1.0) 10/17/18 05:15 AST 26 Units/L (15-37) 10/17/18 05:15 ALT 15 Units/L (12-78) 10/17/18 05:15 Alkaline Phosphatase 132 Units/L (46-116) H 10/17/18 05:15 Total Protein 7.1 g/dL (6.4-8.2) 10/17/18 05:15 Albumin 2.8 g/dL (3.4-5.0) L 10/17/18 05:15 Globulin 4.3 g/dL (2.5-4.5) 10/17/18 05:15 Albumin/Globulin Ratio 0.7 Ratio (1.1-2.1) L 10/17/18 05:15 Vancomycin Trough 13.1 ug/mL (15-20) L 10/17/18 08:07 Urine Opiates Screen Negative (NEG=<300) 10/16/18 01:45 Urine Methadone Screen Negative (NEG=<300) 10/16/18 01:45 Ur Barbiturates Screen Negative (NEG=<200) 10/16/18 01:45 Ur Phencyclidine Scrn Negative (NEG=<25) 10/16/18 01:45 Ur Amphetamines Screen Positive (NEG=<1000) A 10/16/18 01:45 U Benzodiazepines Scrn Negative (NEG=<200) 10/16/18 01:45 Urine Cocaine Screen Negative (NEG=<300) 10/16/18 01:45 U Marijuana (THC) Screen Negative (NEG=<50) 10/16/18 01:45 - Plan (1) Depressed bipolar disorder Status: Acute Plan: Psyche referral (2) Dehydration Status: Acute Plan: Continue fluids, labs (3) Amphetamine abuse Status: Acute (4) Acute hypokalemia Status: Acute Plan: Continue Supplements (5) HIV disease Status: Chronic Plan: CD4 count pending (6) Depression Status: Chronic Qualifiers: Depression Type: major depressive disorder Plan: Psych referral
[2018-10-17] MEDS: NORCO 5/325 MG TAB PO PRN (21:33)
[2018-10-18] MEDS: NS 1000 ML 1,000 ML IV SCH ×5 (01:37→20:32)
[2018-10-18 05:22] LABS: BASOPHILS % (AUTO) 1.2 % (0.2-1.0); EOSINOPHILS # (AUTO) 0.2 x10^3/uL (0.0-0.2); EOSINOPHILS % (AUTO) 6.4 % (0.9-2.9); HEMATOCRIT 35.1 % (42.0-54.0); HEMOGLOBIN 12.3 g/dL (13.5-18.0); LYMPHOCYTES # (AUTO) 1.7 X10^3/uL (1.3-2.9); LYMPHOCYTES % (AUTO) 49.4 % (21.0-51.0); MEAN CORPUSCULAR HEMOGLOBIN 32.3 pg (27.0-34.0); MEAN CORPUSCULAR HGB CONC 35.1 g/dL (33.0-35.0); MEAN CORPUSCULAR VOLUME 91.9 fL (80.0-100.0); MEAN PLATELET VOLUME 7.7 fL (7.4-11.0); MONOCYTES # (AUTO) 0.3 x10^3/uL (0.3-0.8); MONOCYTES % (AUTO) 8.4 % (0.0-13.0); NEUTROPHILS # (AUTO) 1.2 x10^3/uL (2.2-4.8); NEUTROPHILS % (AUTO) 34.6 % (42.0-75.0); PLATELET COUNT 151 X10^3/uL (150.0-450.0); RED BLOOD COUNT 3.81 X10^6/uL (4.7-6.0); RED CELL DISTRIBUTION WIDTH 16.1 % (11.6-16.5); WHITE BLOOD COUNT 3.4 X10^3/uL (3.6-10.0)
[2018-10-18 05:32] LABS: ALANINE AMINOTRANSFERASE 26 Units/L (12-78); ALBUMIN 2.9 g/dL (3.4-5.0); ALKALINE PHOSPHATASE 142 Units/L (46-116); ASPARTATE AMINO TRANSFERASE 31 Units/L (15-37); BLOOD UREA NITROGEN 11 mg/dL (7-18); CALCIUM 7.9 mg/dL (8.5-10.1); CARBON DIOXIDE 23.4 mmol/L (21-32); CHLORIDE 109 mmol/L (98-107); COR CA(FOR HYPOALB) 8.8 mg/dL (8.5-10.1); SODIUM 143 mmol/L (136-145); TOTAL PROTEIN 7.6 g/dL (6.4-8.2); eGFR NON BLACK RACES > 60 (>60)
[2018-10-18] MEDS: CLEOCIN PO SCH ×3 (06:43→20:59)
[2018-10-18] MEDS: MAGNESIUM SULFATE 1 GRAM/100 mL PREMIX 1 GM/100 ML BAG IV PRN ×2 (06:44→09:00)
[2018-10-18] MEDS: KLOR-CON PO PRN (09:03)
[2018-10-18] MEDS: FLONASE NASAL SPRAY ENOSTRIL SCH (11:46)
[2018-10-18] MEDS ORDERED: ASTELIN NASAL SPRAY ONE (12:37)
[2018-10-18] MEDS: ASTELIN NASAL SPRAY ENOSTRIL SCH ×2 (13:55→20:59)
[2018-10-18] MEDS ORDERED: COLACE CAP 100 MG PO PRN (19:59)
[2018-10-18] MEDS ORDERED: MILK OF MAGNESIA PO PRN (19:59)
[2018-10-19 04:37] LABS: BASOPHILS % (AUTO) 0.8 % (0.2-1.0); EOSINOPHILS # (AUTO) 0.2 x10^3/uL (0.0-0.2); EOSINOPHILS % (AUTO) 6.1 % (0.9-2.9); HEMOGLOBIN 12.2 g/dL (13.5-18.0); LYMPHOCYTES # (AUTO) 1.7 X10^3/uL (1.3-2.9); LYMPHOCYTES % (AUTO) 43.4 % (21.0-51.0); MEAN CORPUSCULAR HEMOGLOBIN 32.2 pg (27.0-34.0); MEAN CORPUSCULAR HGB CONC 34.8 g/dL (33.0-35.0); MEAN CORPUSCULAR VOLUME 92.6 fL (80.0-100.0); MEAN PLATELET VOLUME 7.7 fL (7.4-11.0); MONOCYTES # (AUTO) 0.4 x10^3/uL (0.3-0.8); MONOCYTES % (AUTO) 9.5 % (0.0-13.0); NEUTROPHILS # (AUTO) 1.6 x10^3/uL (2.2-4.8); NEUTROPHILS % (AUTO) 40.2 % (42.0-75.0); PLATELET COUNT 154 X10^3/uL (150.0-450.0); RED BLOOD COUNT 3.78 X10^6/uL (4.7-6.0); RED CELL DISTRIBUTION WIDTH 16.4 % (11.6-16.5)
[2018-10-19] MEDS: NORCO 5/325 MG TAB PO PRN (04:49)
[2018-10-19 04:50] LABS: ALANINE AMINOTRANSFERASE 35 Units/L (12-78); ALBUMIN 2.8 g/dL (3.4-5.0); ALKALINE PHOSPHATASE 165 Units/L (46-116); ASPARTATE AMINO TRANSFERASE 49 Units/L (15-37); BLOOD UREA NITROGEN 11 mg/dL (7-18); CALCIUM 7.7 mg/dL (8.5-10.1); CARBON DIOXIDE 24.5 mmol/L (21-32); CHLORIDE 106 mmol/L (98-107); COR CA(FOR HYPOALB) 8.7 mg/dL (8.5-10.1); CREATININE 0.91 mg/dL (0.70-1.30); SODIUM 140 mmol/L (136-145); TOTAL PROTEIN 7.5 g/dL (6.4-8.2); eGFR NON BLACK RACES > 60 (>60)
[2018-10-19] MEDS: ASTELIN NASAL SPRAY ENOSTRIL SCH ×3 (05:22→22:00)
[2018-10-19] MEDS: CLEOCIN PO SCH ×3 (05:24→22:00)
[2018-10-19] MEDS: KLOR-CON PO PRN (05:45)
[2018-10-19] MEDS: FLONASE NASAL SPRAY ENOSTRIL SCH (09:45)
[2018-10-19] MEDS: NS 1000 ML 1,000 ML IV SCH ×3 (09:45→20:12)
[2018-10-19] MEDS ORDERED: PHARMACY CONSULT - DOSE _____ XX SCH (23:00)
[2018-10-20 05:14] LABS: BASOPHILS % (AUTO) 0.9 % (0.2-1.0); EOSINOPHILS # (AUTO) 0.4 x10^3/uL (0.0-0.2); EOSINOPHILS % (AUTO) 9.9 % (0.9-2.9); HEMATOCRIT 34.2 % (42.0-54.0); HEMOGLOBIN 12.2 g/dL (13.5-18.0); LYMPHOCYTES # (AUTO) 1.7 X10^3/uL (1.3-2.9); LYMPHOCYTES % (AUTO) 41.2 % (21.0-51.0); MEAN CORPUSCULAR HEMOGLOBIN 32.5 pg (27.0-34.0); MEAN CORPUSCULAR HGB CONC 35.6 g/dL (33.0-35.0); MEAN CORPUSCULAR VOLUME 91.5 fL (80.0-100.0); MEAN PLATELET VOLUME 7.4 fL (7.4-11.0); MONOCYTES # (AUTO) 0.4 x10^3/uL (0.3-0.8); MONOCYTES % (AUTO) 8.3 % (0.0-13.0); NEUTROPHILS # (AUTO) 1.7 x10^3/uL (2.2-4.8); NEUTROPHILS % (AUTO) 39.7 % (42.0-75.0); PLATELET COUNT 161 X10^3/uL (150.0-450.0); RED BLOOD COUNT 3.74 X10^6/uL (4.7-6.0); WHITE BLOOD COUNT 4.2 X10^3/uL (3.6-10.0)
[2018-10-20 05:27] LABS: ALANINE AMINOTRANSFERASE 31 Units/L (12-78); ALBUMIN 2.9 g/dL (3.4-5.0); ALKALINE PHOSPHATASE 169 Units/L (46-116); ASPARTATE AMINO TRANSFERASE 42 Units/L (15-37); BLOOD UREA NITROGEN 12 mg/dL (7-18); CALCIUM 7.9 mg/dL (8.5-10.1); CARBON DIOXIDE 22.4 mmol/L (21-32); CHLORIDE 108 mmol/L (98-107); COR CA(FOR HYPOALB) 8.8 mg/dL (8.5-10.1); CREATININE 0.95 mg/dL (0.70-1.30); SODIUM 141 mmol/L (136-145); TOTAL PROTEIN 7.6 g/dL (6.4-8.2); eGFR NON BLACK RACES > 60 (>60)
[2018-10-20] MEDS: NS 1000 ML 1,000 ML IV SCH ×4 (06:00→23:16)
[2018-10-20] MEDS: ASTELIN NASAL SPRAY ENOSTRIL SCH ×3 (06:00→21:10)
[2018-10-20] MEDS: CLEOCIN PO SCH ×3 (06:00→21:10)
[2018-10-20] MEDS ORDERED: VISTARIL PO PRN (09:48)
[2018-10-20] MEDS: FLONASE NASAL SPRAY ENOSTRIL SCH (10:01)
[2018-10-20] MEDS: NORCO 5/325 MG TAB PO PRN (21:11)
[2018-10-21] MEDS: NORCO 5/325 MG TAB PO PRN (05:14)
[2018-10-21] MEDS: CLEOCIN PO SCH (05:15)
[2018-10-21] MEDS: ASTELIN NASAL SPRAY ENOSTRIL SCH (05:15)
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
[2018-10-21 08:47] VITALS: BP 121/72
[2018-10-21] MEDS: FLONASE NASAL SPRAY ENOSTRIL SCH (09:00)
--- NOTE | 2018-10-21 12:25 | DR.UPDATE ---
H&P Update History and Physical Update: History and Physical reviewed and patient examined. Changes noted: NO Yes with the following: Prescription drug monitoring program results: PDMP reviewed and no concerns identified
== END 2018-10-21 13:25 | disposition home or self-care (01) | DRG 603 ==
LOC: MED/SURG
PROVIDERS: ADMIT Internal Medicine; ATTEND Internal Medicine
DX: F15.10 Other stimulant abuse, uncomplicated; R60.0 Localized edema; R42 Dizziness and giddiness; E87.6 Hypokalemia; E86.0 Dehydration; B20 Human immunodeficiency virus [HIV] disease; L03.116 Cellulitis of left lower limb; L03.115 Cellulitis of right lower limb; F31.9 Bipolar disorder, unspecified; R26.89 Other abnormalities of gait and mobility
CPT/HCPCS: 36415; 70450; 70551; 80048; 80053; 80202; 80307; 82565; 83735; 84132; 85025; 86355; 86356; 86357; 86359; 86360; 87040; 97110; 97162; 97530; A4222; Q0177; G0378; G0434; J0713; J3370; J3475; J3480; J7030; J8499

== ENCOUNTER 2019-05-06 10:46 | Inpatient (IN) ==
[2019-05-06 12:18] VITALS: BMI 20.1
[2019-05-06] MEDS ORDERED: AFLURIA II4 or FLUARIX II4 IM ONE (12:18)
[2019-05-06] MEDS ORDERED: PREVNAR 13 IM ONE (12:18)
--- NOTE | 2019-05-06 13:11 | DR.H&P ---
H&P - History & Physical for Day of: H&P Date: 05/06/19 - Chief Complaint Chief Complaint: N/V ABDOMINAL PAIN AND FEVER, SWELLING, REDNESS AND BURNING PAIN TO SCROTUM, "STAPH INFECTION" AND - History of Present Illness History of Present Illness: PT IS 48 WM DIRECT ADMIT FROM DR LORENZO OFFICE WITH CO N/V AND ABDOMINAL PAIN WITH FEVER. PT HAS DIFFUSE RASH TO ENTIRE BODY FROM SCALP TO FEET, SCROTAL SWELLING WITH DIFFUSE REDNESS. PT HAS PMH OF HIV, HEP C, HTN, OA, HEART VALVE DISORDER, [facility] DRUG USE. PT HAS TAKEN PO BACTRIM FOR RASH WITHOUT IMPROVEMENT. PT REPORTS HE HAD NOT BEEN ON ANY ANTIVIRAL MEDICATION. PT ADMITTED FOR TREATMENT OF ACUTE ILLNESS. - Past Medical History Past Medical History: Angina, Hypertension, Depression, Anxiety, Seizures, COPD, Asthma, Migraines, Headaches Additional Medical History: HIV, HEP C - Past Surgical History Surgical History: Other - Family History Family Medical History: Diabetes Mellitus, Cancer, [place] - Social History Does patient currently use any type of tobacco product: Yes Have you used tobacco products in the last 12 months: Yes Type of Tobacco Use: Cigarettes Does any household member use tobacco: Yes Alcohol Use: None Drug Use: Marijuana Prescription drug monitoring program results: PDMP reviewed and no concerns identified - Medications Home Medications: Penicillins Allergy (Verified 02/23/19 20:19) tramadol Allergy (Verified 02/23/19 20:19) codeine Adverse Reaction (Mild, Verified 02/23/19 20:19) itching diphenhydramine Adverse Reaction (Mild, Verified 02/23/19 20:19) fluconazole [From Diflucan] Adverse Reaction (Verified 02/23/19 20:19) - Review of Systems Constitutional: Fever, Weakness Eyes: No Symptoms Reported ENT: No Symptoms Reported Cardiovascular: No Symptoms Reported Gastrointestinal: Nausea, Vomiting, Abdominal Pain Genitourinary: Dysuria Musculoskeletal: Back Pain, Neck Pain Skin: Rash Neurological: Other (DIZZINESS) - Physical Exam Vital Signs: Blood Pressure [Right Arm] 125/84 Blood Pressure [Left Arm] 125/84 Blood Pressure 125/84 Oriented: Normal Eyes: Normal Ear: Normal Nose: Normal Throat: Red, Exudate, Dry Respiratory: RLL Diminished, LLL Diminished Cardiovascular: Murmur : Normal Auscultation: Bowel Sounds: Normal Palpation: Normal Tenderness: Epigastric Skin: Decreased Turgur, Rash (DIFFUSE RED RASH, SOME PUSTULAR LESION WITH ERYTHEMATOUS BASE ), Red Musculoskeletal: Back:Thoracic, Back:Lumbar Psychiatric: Anxiety Mood Description: Anxious Affect: Anxious Speech Pattern: Clear - Assessment/Plan (1) Folliculitis Status: Acute Plan: IV VANCOMYCIN. CONTACT PRECAUTIONS. TOPICAL ELIMITE X1, BLOOD CULTURES ON ADMISSION. TOPICAL YEAST TREATMENT WITH NYSTATIN. IV HYDRATION, ABD SERIES WITH UA CBC CMP ON ADMISSION (2) Cellulitis and abscess of buttock Status: Acute (3) Abdominal pain Status: Acute (4) Nausea, vomiting and diarrhea Status: Acute (5) COPD (chronic obstructive pulmonary disease) Status: Acute (6) LILLI (generalized anxiety disorder) Status: Acute (7) HIV disease Status: Chronic - Allergies Allergies/Adverse Reactions: Allergies Allergy/AdvReac Type Severity Reaction Status Date / Time Penicillins Allergy Verified 02/23/19 20:19 tramadol Allergy Verified 02/23/19 20:19 codeine AdvReac Mild itching Verified 02/23/19 20:19 diphenhydramine AdvReac Mild Verified 02/23/19 20:19 fluconazole [From Diflucan] AdvReac Verified 02/23/19 20:19
[2019-05-06] MEDS ORDERED: PHARMACY CONSULT - VANCOMYCIN XX SCH (14:00)
[2019-05-06 14:17] LABS: BASOPHILS % (AUTO) 0.9 % (0.2-1.0); EOSINOPHILS # (AUTO) 0.3 x10^3/uL (0.0-0.2); HEMATOCRIT 40.7 % (42.0-54.0); HEMOGLOBIN 14.5 g/dL (13.5-18.0); LYMPHOCYTES # (AUTO) 0.4 X10^3/uL (1.3-2.9); MEAN CORPUSCULAR HEMOGLOBIN 30.5 pg (27.0-34.0); MEAN CORPUSCULAR HGB CONC 35.6 g/dL (33.0-35.0); MEAN CORPUSCULAR VOLUME 85.7 fL (80.0-100.0); MEAN PLATELET VOLUME 7.7 fL (7.4-11.0); MONOCYTES # (AUTO) 0.4 x10^3/uL (0.3-0.8); MONOCYTES % (AUTO) 9.2 % (0.0-13.0); NEUTROPHILS # (AUTO) 2.8 x10^3/uL (2.2-4.8); NEUTROPHILS % (AUTO) 71.9 % (42.0-75.0); PLATELET COUNT 176 X10^3/uL (150.0-450.0); RED BLOOD COUNT 4.76 X10^6/uL (4.7-6.0); RED CELL DISTRIBUTION WIDTH 13.5 % (11.6-16.5); WHITE BLOOD COUNT 3.8 X10^3/uL (3.6-10.0)
[2019-05-06 14:25] LABS: BLOOD UREA NITROGEN 8 mg/dL (7-18); CARBON DIOXIDE 27.6 mmol/L (21-32); CHLORIDE 103 mmol/L (98-107); CREATININE 1.04 mg/dL (0.70-1.30); SODIUM 139 mmol/L (136-145); eGFR NON BLACK RACES > 60 (>60)
[2019-05-06 14:29] LABS: ALANINE AMINOTRANSFERASE 21 Units/L (12-78); ALBUMIN 3.5 g/dL (3.4-5.0); ALKALINE PHOSPHATASE 106 Units/L (46-116); ASPARTATE AMINO TRANSFERASE 33 Units/L (15-37); TOTAL PROTEIN 8.3 g/dL (6.4-8.2)
[2019-05-06 14:40] LABS: BAND NEUTROPHILS % 12 % (0-10); PLATELET MORPHOLOGY COMMENT NORMAL (NORMAL)
[2019-05-06] MEDS: NYSTATIN CREAM TOP SCH ×2 (14:43→21:08)
[2019-05-06] MEDS: VISTARIL PO SCH ×2 (14:43→21:07)
[2019-05-06] MEDS: NS 1000 ML 1,000 ML IV SCH (14:43)
[2019-05-06] MEDS: VANCOMYCIN IV *PREMIX 1 G/200 ML BAG 1 G/200 ML PIGGYBACK IV SCH ×2 (14:43→21:07)
[2019-05-06] MEDS: NYSTATIN SUSP MT SCH ×3 (14:43→20:05)
[2019-05-06] MEDS: NEURONTIN CAP 400 MG PO SCH ×2 (14:43→21:07)
[2019-05-06] MEDS ORDERED: POTASSIUM CHL 40 MEQ/NS 0.45% 500 ML IV PRN (14:44)
[2019-05-06] MEDS ORDERED: POTASSIUM CHL 60 MEQ/NS 0.45% 500 ML IV PRN (14:44)
[2019-05-06] MEDS ORDERED: MICRO K EXTEN CAP 10 MEQ PO PRN (14:44)
[2019-05-06] MEDS ORDERED: POTASSIUM CHLORIDE LIQ 20 MEQ UDC PO PRN (14:44)
[2019-05-06] MEDS ORDERED: KLOR-CON PO PRN (14:44)
--- NOTE | 2019-05-06 14:58 | RAD ---
HISTORYSOB, HX COPDSTUDYCHEST, PA/LAT ADULTCOMPARISONAP portable chest June 28, 2018.FINDINGSThe trachea is midline. The cardiac silhouette is upper limits of normal in size but stable in size and configuration.. The lungs are clear without focal infiltrate or effusion. There is pleural scarring blunting the left costophrenic angle. The minimal infiltrate that was present previously in June of 2018 in the left midlung field has resolved without residual. The bony thorax is unremarkable.IMPRESSIONNo acute cardiopulmonary disease. Stable chronic pleural scarring of the left costophrenic angle with elevation of the left hemidiaphragm.Electronically signed by: NAM CACERES (May 06, 2019 14:57:44)
--- NOTE | 2019-05-06 15:09 | RAD ---
ACUTE ABDOMEN SERIESHISTORY:N/V/DStudy: Frontal view of the chest, flat and upright views of the abdomenComparison:NoneFindings:Cardiomediastinal silhouette is normal in size .No focal consolidations, pleural effusions or pneumothorax.Flat and upright views of the abdomen demonstrates a normal bowel gas pattern.No free air..No abnormal calcifications or abnormal soft tissue shadows. No acute bony abnormalities.IMPRESSION:1. No acute cardiopulmonary disease.2. No evidence for acute abdominal pathology.Electronically signed by: HELEN TUCKER (May 06, 2019 15:08:07)
[2019-05-06] MEDS: DUONEB 0.5 MG/3 MG (3 mL) NEB SCH ×2 (16:20→20:10)
[2019-05-06] MEDS ORDERED: TYLENOL 325 MG TAB PO ONE (16:45)
[2019-05-06] MEDS: TYLENOL 325 MG TAB PO PRN ×2 (17:00→23:25)
[2019-05-06] MEDS: ELIMITE TOPICAL CREAM TOP NR (17:03)
[2019-05-06 17:32] LABS: BILIRUBIN,URINE NEGATIVE (NEGATIVE); BLOOD/HEMOGLOBIN,URINE 1+ (NEGATIVE); GLUCOSE, URINE NEGATIVE (NEGATIVE); KETONES,URINE NEGATIVE (NEGATIVE); LEUKOCYTE ESTERASE ,URINE NEGATIVE (NEGATIVE); NITRITES,URINE NEGATIVE (NEGATIVE); PH,URINE 6.5 (5.0 - 8.0); PROTEIN,URINE 1+ (NEGATIVE); UROBILINOGEN,URINE 1+ (NORMAL)
[2019-05-06] MEDS: K-DUR TAB 20 MEQ PO PRN ×2 (17:35→21:09)
[2019-05-06 17:50] LABS: APPEARANCE,URINE CLEAR (CLEAR); BACTERIA,URINE NEGATIVE /HPF (NEGATIVE); COLOR,URINE YELLOW (YELLOW); RBC,URINE 0-2 /HPF (0-3); SQUAMOUS EPITHELIAL CELL,UR RARE /HPF (NEGATIVE)
[2019-05-06] MEDS: TORADOL 30 MG VIAL IVP PRN (20:06)
[2019-05-06] MEDS: PULMICORT NEB TX 0.5 MG NEB SCH (20:10)
[2019-05-06] MEDS: K-RIDER 10 MEQ/NS 100 ML 10 MEQ/100 ML BAG IV PRN (23:40)
[2019-05-07] MEDS: K-RIDER 10 MEQ/NS 100 ML 10 MEQ/100 ML BAG IV PRN ×2 (00:22→01:54)
[2019-05-07] MEDS: NEURONTIN CAP 400 MG PO SCH ×3 (05:04→20:59)
[2019-05-07] MEDS: VISTARIL PO SCH ×3 (05:04→21:00)
[2019-05-07] MEDS: VANCOMYCIN IV *PREMIX 1 G/200 ML BAG 1 G/200 ML PIGGYBACK IV SCH ×3 (05:04→21:00)
[2019-05-07] MEDS: NS 1000 ML 1,000 ML IV SCH ×2 (05:04→17:29)
[2019-05-07] MEDS: NYSTATIN CREAM TOP SCH ×3 (05:07→21:00)
[2019-05-07 05:53] LABS: BASOPHILS % (AUTO) 0.7 % (0.2-1.0); EOSINOPHILS # (AUTO) 0.2 x10^3/uL (0.0-0.2); EOSINOPHILS % (AUTO) 6.2 % (0.9-2.9); HEMATOCRIT 39.3 % (42.0-54.0); HEMOGLOBIN 13.5 g/dL (13.5-18.0); LYMPHOCYTES # (AUTO) 0.6 X10^3/uL (1.3-2.9); LYMPHOCYTES % (AUTO) 16.8 % (21.0-51.0); MEAN CORPUSCULAR HEMOGLOBIN 30.4 pg (27.0-34.0); MEAN CORPUSCULAR HGB CONC 34.3 g/dL (33.0-35.0); MEAN CORPUSCULAR VOLUME 88.7 fL (80.0-100.0); MEAN PLATELET VOLUME 8.2 fL (7.4-11.0); MONOCYTES # (AUTO) 0.4 x10^3/uL (0.3-0.8); MONOCYTES % (AUTO) 11.7 % (0.0-13.0); NEUTROPHILS # (AUTO) 2.2 x10^3/uL (2.2-4.8); NEUTROPHILS % (AUTO) 64.6 % (42.0-75.0); PLATELET COUNT 160 X10^3/uL (150.0-450.0); RED BLOOD COUNT 4.43 X10^6/uL (4.7-6.0); RED CELL DISTRIBUTION WIDTH 13.7 % (11.6-16.5); WHITE BLOOD COUNT 3.4 X10^3/uL (3.6-10.0)
[2019-05-07 05:54] LABS: ALANINE AMINOTRANSFERASE 19 Units/L (12-78); ALBUMIN 2.7 g/dL (3.4-5.0); ALKALINE PHOSPHATASE 86 Units/L (46-116); ASPARTATE AMINO TRANSFERASE 26 Units/L (15-37); BLOOD UREA NITROGEN 8 mg/dL (7-18); CALCIUM 7.5 mg/dL (8.5-10.1); CARBON DIOXIDE 23.9 mmol/L (21-32); CHLORIDE 110 mmol/L (98-107); COR CA(FOR HYPOALB) 8.5 mg/dL (8.5-10.1); CREATININE 1.01 mg/dL (0.70-1.30); SODIUM 143 mmol/L (136-145); TOTAL PROTEIN 6.8 g/dL (6.4-8.2); eGFR NON BLACK RACES > 60 (>60)
[2019-05-07 06:11] LABS: BAND NEUTROPHILS % 4 % (0-10)
[2019-05-07 06:12] LABS: PLATELET MORPHOLOGY COMMENT NORMAL (NORMAL)
[2019-05-07] MEDS: KENALOG CREAM TOP SCH ×2 (09:42→20:58)
[2019-05-07] MEDS: NYSTATIN SUSP MT SCH ×4 (09:43→20:57)
[2019-05-07] MEDS: TORADOL 30 MG VIAL IVP PRN ×2 (09:49→22:31)
[2019-05-07] MEDS: DUONEB 0.5 MG/3 MG (3 mL) NEB SCH ×4 (09:50→21:17)
[2019-05-07] MEDS: PULMICORT NEB TX 0.5 MG NEB SCH ×2 (09:50→21:17)
[2019-05-07] MEDS: PROTONIX INJ 40 MG VIAL IVP SCH ×2 (12:57→20:57)
[2019-05-07] MEDS: ELIMITE TOPICAL CREAM TOP NR (12:59)
[2019-05-07] MEDS ORDERED: PHARMACY COMMENT IV NR (13:30)
[2019-05-07 14:10] LABS: CREATININE 1.04 mg/dL (0.70-1.30); VANCOMYCIN,TROUGH 16.1 ug/mL (15-20)
--- NOTE | 2019-05-07 17:20 | PCM.PROG ---
Progress Note - Progress Note for Day of Date of Exam: 05/07/19 - Subjective Subjective: PT IS 48 WM DIRECT ADMIT FROM DR LORENZO OFFICE WITH CO N/V AND ABDOMINAL PAIN WITH FEVER. PT HAS DIFFUSE RASH TO ENTIRE BODY FROM SCALP TO FEET, SCROTAL SWELLING WITH DIFFUSE REDNESS. PT HAS PMH OF HIV, HEP C, HTN, OA, HEART VALVE DISORDER, GROUP HOME DRUG USE. PT HAS TAKEN PO BACTRIM FOR RASH WITHOUT IMPROVEMENT. PT ABD SERIES ON ADMISSION WAS WITHOUT ACUTE ABDOMINAL PATHOLOGY. K+ 2.8 ON ADMISSION, WITH REPLACEMENT THERAPY UP TO 4 THIS AM. PT CONTINUES TO CO ITCHING AND BURNING TO SCROTUM AND CALDWELL. PT HAD ELIMITE TREATMENT LAST PM PER PROTOCOL. CULTURES COLLECTED ARE PENDING. WE WILL CONTINUE IV HYDRATION. - Past Medical Family Social History Past Med/Fam/Surg Hx: No changes since H&P Allergies: Allergies Penicillins Allergy (Verified 02/23/19 20:19) tramadol Allergy (Verified 02/23/19 20:19) codeine Adverse Reaction (Mild, Verified 02/23/19 20:19) itching diphenhydramine Adverse Reaction (Mild, Verified 02/23/19 20:19) RED MAN fluconazole [From Diflucan] Adverse Reaction (Verified 02/23/19 20:19) - Review of Systems ROS: No change since H&P - Vital Signs and I&O's Vital Signs: Temperature 99.3 F Pulse Rate 95 Respiratory Rate 16 Blood Pressure [Right Arm] 125/84 Blood Pressure [Left Arm] 125/84 Blood Pressure 106/61 O2 Sat by Pulse Oximetry 96 Intake and Output: Intake & Output 05/05/19 05/06/19 05/07/19 05/08/19 11:59 11:59 11:59 11:59 Intake Total 2953 / 2953 1986 Output Total 1700 / 1700 Balance 1253 / 1253 1986 - Physical Exam Oriented: Normal Eyes: Normal Ear: Normal Nose: Normal Throat: Red, Exudate, Dry Respiratory: Diminished Cardiovascular: Murmur : Normal Auscultation: Bowel Sounds: Normal Tenderness: Epigastric Skin: Decreased Turgur, Rash (DIFFUSE RED RASH, SOME PUSTULAR LESION WITH ERYTHEMATOUS BASE ), Red Musculoskeletal: Back:Thoracic, Back:Lumbar Psychiatric: Anxiety Mood Description: Anxious Affect: Anxious Speech Pattern: Clear, Appropriate - Laboratory and Diagnostics Result Diagrams: 05/07/19 05:03 05/07/19 13:35 Labs: Laboratory WBC 3.4 X10^3/uL (3.6-10.0) L 05/07/19 05:03 RBC 4.43 X10^6/uL (4.7-6.0) L 05/07/19 05:03 Hgb 13.5 g/dL (13.5-18.0) 05/07/19 05:03 Hct 39.3 % (42.0-54.0) L 05/07/19 05:03 MCV 88.7 fL (80.0-100.0) 05/07/19 05:03 MCH 30.4 pg (27.0-34.0) 05/07/19 05:03 MCHC 34.3 g/dL (33.0-35.0) 05/07/19 05:03 RDW 13.7 % (11.6-16.5) 05/07/19 05:03 Plt Count 160 X10^3/uL (150.0-450.0) 05/07/19 05:03 Plt Count Comment Adequate (ADEQUATE) 05/07/19 05:03 MPV 8.2 fL (7.4-11.0) 05/07/19 05:03 Neut % (Auto) 64.6 % (42.0-75.0) 05/07/19 05:03 Lymph % (Auto) 16.8 % (21.0-51.0) L 05/07/19 05:03 [place] % (Auto) 11.7 % (0.0-13.0) 05/07/19 05:03 Eos % (Auto) 6.2 % (0.9-2.9) H 05/07/19 05:03 Baso % (Auto) 0.7 % (0.2-1.0) 05/07/19 05:03 Neut # (Auto) 2.2 x10^3/uL (2.2-4.8) 05/07/19 05:03 Lymph # (Auto) 0.6 X10^3/uL (1.3-2.9) L 05/07/19 05:03 [place] # (Auto) 0.4 x10^3/uL (0.3-0.8) 05/07/19 05:03 Eos # (Auto) 0.2 x10^3/uL (0.0-0.2) 05/07/19 05:03 Baso # (Auto) 0.0 X10^3/uL (0.0-0.1) 05/07/19 05:03 Absolute Nucleated RBC 0.2 /100WBC 05/07/19 05:03 Total Counted 100 05/07/19 05:03 Neutrophils % (Manual) 65 % (39-76) 05/07/19 05:03 Band Neutrophils % 4 % (0-10) 05/07/19 05:03 Lymphocytes % (Manual) 24 % (13-43) 05/07/19 05:03 Monocytes % (Manual) 3 % (4-9) L 05/07/19 05:03 Eosinophils % (Manual) 4 % (0-6) 05/07/19 05:03 Plt Morphology Comment Normal (NORMAL) 05/07/19 05:03 RBC Morphology Normal (NORMAL) 05/07/19 05:03 Sodium 143 mmol/L (136-145) 05/07/19 05:03 Corrected Sodium TNP 05/07/19 05:03 Potassium 4.0 mmol/L (3.5-5.1) 05/07/19 05:03 Chloride 110 mmol/L (98-107) H 05/07/19 05:03 Carbon Dioxide 23.9 mmol/L (21-32) 05/07/19 05:03 BUN 8 mg/dL (7-18) 05/07/19 05:03 Creatinine 1.04 mg/dL (0.70-1.30) 05/07/19 13:35 Est GFR (MDRD) Af Amer > 60 (>60) 05/07/19 05:03 Est GFR (MDRD) Non-Af > 60 (>60) 05/07/19 05:03 Glucose 89 mg/dL (65-99) 05/07/19 05:03 Calcium 7.5 mg/dL (8.5-10.1) L 05/07/19 05:03 Corrected Calcium 8.5 mg/dL (8.5-10.1) 05/07/19 05:03 Magnesium 2.1 mg/dL (1.7-2.9) 05/07/19 05:03 Total Bilirubin 0.40 mg/dL (0.2-1.0) 05/07/19 05:03 AST 26 Units/L (15-37) 05/07/19 05:03 ALT 19 Units/L (12-78) 05/07/19 05:03 Alkaline Phosphatase 86 Units/L (46-116) 05/07/19 05:03 Total Protein 6.8 g/dL (6.4-8.2) 05/07/19 05:03 Albumin 2.7 g/dL (3.4-5.0) L 05/07/19 05:03 Globulin 4.1 g/dL (2.5-4.5) 05/07/19 05:03 Albumin/Globulin Ratio 0.7 Ratio (1.1-2.1) L 05/07/19 05:03 Specimen Type Clean catch urine 05/06/19 17:02 Urine Color Yellow (YELLOW) 05/06/19 17:02 Urine Appearance Clear (CLEAR) 05/06/19 17:02 Urine pH 6.5 (5.0 - 8.0) 05/06/19 17:02 Ur Specific [place] 1.010 (1.000-1.030) 05/06/19 17:02 Urine Protein 1+ (NEGATIVE) 05/06/19 17:02 Urine Glucose (UA) Negative (NEGATIVE) 05/06/19 17:02 Urine Ketones Negative (NEGATIVE) 05/06/19 17:02 Urine Occult Blood 1+ (NEGATIVE) 05/06/19 17:02 Urine Nitrite Negative (NEGATIVE) 05/06/19 17:02 Urine Bilirubin Negative (NEGATIVE) 05/06/19 17:02 Urine Urobilinogen 1+ (NORMAL) 05/06/19 17:02 Ur Leukocyte Esterase Negative (NEGATIVE) 05/06/19 17:02 Urine RBC 0-2 /HPF (0-3) 05/06/19 17:02 Urine WBC 0-2 /HPF (0-5) 05/06/19 17:02 Ur Squamous Epith Cells Rare /HPF (NEGATIVE) 05/06/19 17:02 Urine Bacteria Negative /HPF (NEGATIVE) 05/06/19 17:02 Ur Culture Indicated? No/not indicated 05/06/19 17:02 Vancomycin Trough 16.1 ug/mL (15-20) 05/07/19 13:35 Urine Opiates Screen Negative (NEG=<300) 05/06/19 17:02 Urine Methadone Screen Negative (NEG=<300) 05/06/19 17:02 Ur Barbiturates Screen Negative (NEG=<200) 05/06/19 17:02 Ur Phencyclidine Scrn Negative (NEG=<25) 05/06/19 17:02 Ur Amphetamines Screen Negative (NEG=<1000) 05/06/19 17:02 U Benzodiazepines Scrn Negative (NEG=<200) 05/06/19 17:02 Urine Cocaine Screen Negative (NEG=<300) 05/06/19 17:02 U Marijuana (THC) Screen Negative (NEG=<50) 05/06/19 17:02 Influenza Type A (PCR) Negative (NEGATIVE) 05/06/19 17:02 Influenza Type B (PCR) Negative (NEGATIVE) 05/06/19 17:02 - Plan (1) Folliculitis Status: Acute Plan: IV VANCOMYCIN. CONTACT PRECAUTIONS. TOPICAL ELIMITE X1, BLOOD CULTURES ON ADMISSION. TOPICAL YEAST TREATMENT WITH NYSTATIN. IV HYDRATION, ABD SERIES WITH UA CBC CMP ON ADMISSION. REPEAT AM LABS (2) Hypokalemia Status: Acute Plan: CONTINUE POTASSIUM REPLACEMENT (3) Cellulitis and abscess of buttock Status: Acute (4) Abdominal pain Status: Acute (5) Nausea, vomiting and diarrhea Status: Acute (6) COPD (chronic obstructive pulmonary disease) Status: Acute (7) LILLI (generalized anxiety disorder) Status: Acute (8) HIV disease Status: Chronic (9) Hypokalemia Status: Acute
[2019-05-07] MEDS: TYLENOL 325 MG TAB PO PRN (21:00)
[2019-05-08] MEDS: TYLENOL 325 MG TAB PO PRN ×3 (00:45→21:47)
[2019-05-08] MEDS: VANCOMYCIN IV *PREMIX 1 G/200 ML BAG 1 G/200 ML PIGGYBACK IV SCH ×3 (05:01→22:18)
[2019-05-08] MEDS: NEURONTIN CAP 400 MG PO SCH ×4 (05:01→21:00)
[2019-05-08] MEDS: NYSTATIN CREAM TOP SCH ×4 (05:01→22:18)
[2019-05-08] MEDS: VISTARIL PO SCH ×3 (05:02→22:20)
[2019-05-08 05:35] LABS: BASOPHILS # (AUTO) 0.1 X10^3/uL (0.0-0.1); BASOPHILS % (AUTO) 1.7 % (0.2-1.0); EOSINOPHILS # (AUTO) 0.2 x10^3/uL (0.0-0.2); EOSINOPHILS % (AUTO) 5.2 % (0.9-2.9); HEMATOCRIT 37.1 % (42.0-54.0); LYMPHOCYTES # (AUTO) 0.6 X10^3/uL (1.3-2.9); MEAN CORPUSCULAR HEMOGLOBIN 31.2 pg (27.0-34.0); MEAN CORPUSCULAR HGB CONC 34.9 g/dL (33.0-35.0); MEAN CORPUSCULAR VOLUME 89.2 fL (80.0-100.0); MEAN PLATELET VOLUME 8.2 fL (7.4-11.0); MONOCYTES # (AUTO) 0.3 x10^3/uL (0.3-0.8); MONOCYTES % (AUTO) 9.2 % (0.0-13.0); NEUTROPHILS # (AUTO) 2.3 x10^3/uL (2.2-4.8); NEUTROPHILS % (AUTO) 66.9 % (42.0-75.0); PLATELET COUNT 156 X10^3/uL (150.0-450.0); RED BLOOD COUNT 4.16 X10^6/uL (4.7-6.0); WHITE BLOOD COUNT 3.5 X10^3/uL (3.6-10.0)
[2019-05-08 05:54] LABS: ALANINE AMINOTRANSFERASE 14 Units/L (12-78); ALBUMIN 2.5 g/dL (3.4-5.0); ALKALINE PHOSPHATASE 93 Units/L (46-116); ASPARTATE AMINO TRANSFERASE 23 Units/L (15-37); BLOOD UREA NITROGEN 11 mg/dL (7-18); CARBON DIOXIDE 22.1 mmol/L (21-32); CHLORIDE 112 mmol/L (98-107); COR CA(FOR HYPOALB) 8.2 mg/dL (8.5-10.1); CREATININE 1.11 mg/dL (0.70-1.30); SODIUM 144 mmol/L (136-145); TOTAL PROTEIN 6.5 g/dL (6.4-8.2); eGFR NON BLACK RACES > 60 (>60)
[2019-05-08 06:01] LABS: BAND NEUTROPHILS % 9 % (0-10); PLATELET MORPHOLOGY COMMENT NORMAL (NORMAL)
[2019-05-08] MEDS: PROTONIX INJ 40 MG VIAL IVP SCH ×2 (09:00→21:00)
[2019-05-08] MEDS: KENALOG CREAM TOP SCH ×2 (09:10→22:17)
[2019-05-08] MEDS ORDERED: BENADRYL INJ 50 MG VIAL IV PRN (09:24)
[2019-05-08] MEDS: PULMICORT NEB TX 0.5 MG NEB SCH (09:45)
[2019-05-08] MEDS: DUONEB 0.5 MG/3 MG (3 mL) NEB SCH ×3 (09:45→18:39)
[2019-05-08] MEDS: NYSTATIN SUSP MT SCH ×5 (13:45→21:00)
--- NOTE | 2019-05-08 14:07 | PCM.PROG ---
Progress Note - Progress Note for Day of Date of Exam: 05/08/19 - Subjective Subjective: PT IS 48 WM DIRECT ADMIT FROM DR LORENZO OFFICE WITH CO N/V AND ABDOMINAL PAIN WITH FEVER. PT HAS DIFFUSE RASH TO ENTIRE BODY FROM SCALP TO FEET, SCROTAL SWELLING WITH DIFFUSE REDNESS. PT HAS PMH OF HIV, HEP C, HTN, OA, HEART VALVE DISORDER, [facility] DRUG USE. PT HAS TAKEN PO BACTRIM FOR RASH WITHOUT IMPROVEMENT. PT ABD SERIES ON ADMISSION WAS WITHOUT ACUTE ABDOMINAL PATHOLOGY. K+ 2.8 ON ADMISSION, WITH REPLACEMENT THERAPY UP TO 4 THIS AM. PT CONTINUES TO CO ITCHING AND BURNING TO SCROTUM AND CALDWELL. CULTURES COLLECTED ARE PENDING. WE WILL CONTINUE IV HYDRATION AND IV BENADRYL FOR ITCHING. CONTINUE VACOMYCIN - Past Medical Family Social History Past Med/Fam/Surg Hx: No changes since H&P Allergies: Allergies Penicillins Allergy (Verified 02/23/19 20:19) tramadol Allergy (Verified 02/23/19 20:19) codeine Adverse Reaction (Mild, Verified 02/23/19 20:19) itching diphenhydramine Adverse Reaction (Mild, Verified 02/23/19 20:19) RED MAN fluconazole [From Diflucan] Adverse Reaction (Verified 02/23/19 20:19) - Review of Systems ROS: No change since H&P - Vital Signs and I&O's Vital Signs: Temperature 99.2 F Pulse Rate 84 Respiratory Rate 20 Blood Pressure [Right Arm] 125/84 Blood Pressure [Left Arm] 125/84 Blood Pressure 126/81 O2 Sat by Pulse Oximetry 97 Intake and Output: Intake & Output 05/06/19 05/07/19 05/08/19 05/09/19 11:59 11:59 11:59 11:59 Intake Total 2953 / 2953 4567 / 4567 Output Total 1700 / 1700 500 / 500 Balance 1253 / 1253 4067 / 4067 - Physical Exam Oriented: Normal Eyes: Normal Ear: Normal Nose: Normal Throat: Red, Exudate, Dry Respiratory: Diminished Cardiovascular: Murmur : Normal Auscultation: Bowel Sounds: Normal Tenderness: Epigastric Skin: Decreased Turgur, Rash (DIFFUSE RED RASH, SOME PUSTULAR LESION WITH ERYTHEMATOUS BASE ), Red Musculoskeletal: Back:Thoracic, Back:Lumbar Psychiatric: Anxiety Mood Description: Anxious Affect: Anxious Speech Pattern: Clear, Appropriate - Laboratory and Diagnostics Result Diagrams: 05/08/19 05:05 05/08/19 05:05 Labs: 05/06/19 14:00 Blood Blood Culture - Preliminary 05/06/19 13:50 Blood Blood Culture - Preliminary Laboratory WBC 3.5 X10^3/uL (3.6-10.0) L 05/08/19 05:05 RBC 4.16 X10^6/uL (4.7-6.0) L 05/08/19 05:05 Hgb 13.0 g/dL (13.5-18.0) L 05/08/19 05:05 Hct 37.1 % (42.0-54.0) L 05/08/19 05:05 MCV 89.2 fL (80.0-100.0) 05/08/19 05:05 MCH 31.2 pg (27.0-34.0) 05/08/19 05:05 MCHC 34.9 g/dL (33.0-35.0) 05/08/19 05:05 RDW 14.0 % (11.6-16.5) 05/08/19 05:05 Plt Count 156 X10^3/uL (150.0-450.0) 05/08/19 05:05 Plt Count Comment Adequate (ADEQUATE) 05/08/19 05:05 MPV 8.2 fL (7.4-11.0) 05/08/19 05:05 Neut % (Auto) 66.9 % (42.0-75.0) 05/08/19 05:05 Lymph % (Auto) 17.0 % (21.0-51.0) L 05/08/19 05:05 [place] % (Auto) 9.2 % (0.0-13.0) 05/08/19 05:05 Eos % (Auto) 5.2 % (0.9-2.9) H 05/08/19 05:05 Baso % (Auto) 1.7 % (0.2-1.0) H 05/08/19 05:05 Neut # (Auto) 2.3 x10^3/uL (2.2-4.8) 05/08/19 05:05 Lymph # (Auto) 0.6 X10^3/uL (1.3-2.9) L 05/08/19 05:05 [place] # (Auto) 0.3 x10^3/uL (0.3-0.8) 05/08/19 05:05 Eos # (Auto) 0.2 x10^3/uL (0.0-0.2) 05/08/19 05:05 Baso # (Auto) 0.1 X10^3/uL (0.0-0.1) 05/08/19 05:05 Absolute Nucleated RBC 0.1 /100WBC 05/08/19 05:05 Total Counted 100 05/08/19 05:05 Neutrophils % (Manual) 59 % (39-76) 05/08/19 05:05 Band Neutrophils % 9 % (0-10) 05/08/19 05:05 Lymphocytes % (Manual) 20 % (13-43) 05/08/19 05:05 Monocytes % (Manual) 9 % (4-9) 05/08/19 05:05 Eosinophils % (Manual) 3 % (0-6) 05/08/19 05:05 Plt Morphology Comment Normal (NORMAL) 05/08/19 05:05 RBC Morphology Normal (NORMAL) 05/08/19 05:05 Sodium 144 mmol/L (136-145) 05/08/19 05:05 Corrected Sodium TNP 05/08/19 05:05 Potassium 4.0 mmol/L (3.5-5.1) 05/08/19 05:05 Chloride 112 mmol/L (98-107) H 05/08/19 05:05 Carbon Dioxide 22.1 mmol/L (21-32) 05/08/19 05:05 BUN 11 mg/dL (7-18) 05/08/19 05:05 Creatinine 1.11 mg/dL (0.70-1.30) 05/08/19 05:05 Est GFR (MDRD) Af Amer > 60 (>60) 05/08/19 05:05 Est GFR (MDRD) Non-Af > 60 (>60) 05/08/19 05:05 Glucose 97 mg/dL (65-99) 05/08/19 05:05 Calcium 7.0 mg/dL (8.5-10.1) L 05/08/19 05:05 Corrected Calcium 8.2 mg/dL (8.5-10.1) L 05/08/19 05:05 Magnesium 2.1 mg/dL (1.7-2.9) 05/07/19 05:03 Total Bilirubin 0.30 mg/dL (0.2-1.0) 05/08/19 05:05 AST 23 Units/L (15-37) 05/08/19 05:05 ALT 14 Units/L (12-78) 05/08/19 05:05 Alkaline Phosphatase 93 Units/L (46-116) 05/08/19 05:05 Total Protein 6.5 g/dL (6.4-8.2) 05/08/19 05:05 Albumin 2.5 g/dL (3.4-5.0) L 05/08/19 05:05 Globulin 4.0 g/dL (2.5-4.5) 05/08/19 05:05 Albumin/Globulin Ratio 0.6 Ratio (1.1-2.1) L 05/08/19 05:05 Specimen Type Clean catch urine 05/06/19 17:02 Urine Color Yellow (YELLOW) 05/06/19 17:02 Urine Appearance Clear (CLEAR) 05/06/19 17:02 Urine pH 6.5 (5.0 - 8.0) 05/06/19 17:02 Ur Specific [place] 1.010 (1.000-1.030) 05/06/19 17:02 Urine Protein 1+ (NEGATIVE) 05/06/19 17:02 Urine Glucose (UA) Negative (NEGATIVE) 05/06/19 17:02 Urine Ketones Negative (NEGATIVE) 05/06/19 17:02 Urine Occult Blood 1+ (NEGATIVE) 05/06/19 17:02 Urine Nitrite Negative (NEGATIVE) 05/06/19 17:02 Urine Bilirubin Negative (NEGATIVE) 05/06/19 17:02 Urine Urobilinogen 1+ (NORMAL) 05/06/19 17:02 Ur Leukocyte Esterase Negative (NEGATIVE) 05/06/19 17:02 Urine RBC 0-2 /HPF (0-3) 05/06/19 17:02 Urine WBC 0-2 /HPF (0-5) 05/06/19 17:02 Ur Squamous Epith Cells Rare /HPF (NEGATIVE) 05/06/19 17:02 Urine Bacteria Negative /HPF (NEGATIVE) 05/06/19 17:02 Ur Culture Indicated? No/not indicated 05/06/19 17:02 Vancomycin Trough 16.1 ug/mL (15-20) 05/07/19 13:35 Urine Opiates Screen Negative (NEG=<300) 05/06/19 17:02 Urine Methadone Screen Negative (NEG=<300) 05/06/19 17:02 Ur Barbiturates Screen Negative (NEG=<200) 05/06/19 17:02 Ur Phencyclidine Scrn Negative (NEG=<25) 05/06/19 17:02 Ur Amphetamines Screen Negative (NEG=<1000) 05/06/19 17:02 U Benzodiazepines Scrn Negative (NEG=<200) 05/06/19 17:02 Urine Cocaine Screen Negative (NEG=<300) 05/06/19 17:02 U Marijuana (THC) Screen Negative (NEG=<50) 05/06/19 17:02 Influenza Type A (PCR) Negative (NEGATIVE) 05/06/19 17:02 Influenza Type B (PCR) Negative (NEGATIVE) 05/06/19 17:02 - Plan (1) Folliculitis Status: Acute Plan: IV VANCOMYCIN. CONTACT PRECAUTIONS. TOPICAL ELIMITE X1, BLOOD CULTURES ON ADMISSION. TOPICAL YEAST TREATMENT WITH NYSTATIN. IV HYDRATION, ABD SERIES WITH UA CBC CMP ON ADMISSION. REPEAT AM LABS (2) Hypokalemia Status: Acute Plan: CONTINUE POTASSIUM REPLACEMENT (3) Cellulitis and abscess of buttock Status: Acute (4) Abdominal pain Status: Acute (5) Nausea, vomiting and diarrhea Status: Acute (6) COPD (chronic obstructive pulmonary disease) Status: Acute (7) LILLI (generalized anxiety disorder) Status: Acute (8) HIV disease Status: Chronic (9) Hypokalemia Status: Acute
[2019-05-08] MEDS: NS 1000 ML 1,000 ML IV SCH ×2 (16:41→22:18)
[2019-05-08 17:29] LABS: BASOPHILS % (AUTO) 0.6 % (0.2-1.0); EOSINOPHILS # (AUTO) 0.1 x10^3/uL (0.0-0.2); EOSINOPHILS % (AUTO) 4.5 % (0.9-2.9); HEMATOCRIT 36.3 % (42.0-54.0); HEMOGLOBIN 12.5 g/dL (13.5-18.0); LYMPHOCYTES # (AUTO) 0.3 X10^3/uL (1.3-2.9); LYMPHOCYTES % (AUTO) 12.6 % (21.0-51.0); MEAN CORPUSCULAR HEMOGLOBIN 30.5 pg (27.0-34.0); MEAN CORPUSCULAR HGB CONC 34.5 g/dL (33.0-35.0); MEAN CORPUSCULAR VOLUME 88.6 fL (80.0-100.0); MEAN PLATELET VOLUME 7.6 fL (7.4-11.0); MONOCYTES # (AUTO) 0.2 x10^3/uL (0.3-0.8); MONOCYTES % (AUTO) 9.2 % (0.0-13.0); NEUTROPHILS # (AUTO) 1.8 x10^3/uL (2.2-4.8); NEUTROPHILS % (AUTO) 73.1 % (42.0-75.0); PLATELET COUNT 159 X10^3/uL (150.0-450.0); RED CELL DISTRIBUTION WIDTH 14.2 % (11.6-16.5); WHITE BLOOD COUNT 2.5 X10^3/uL (3.6-10.0)
[2019-05-08 17:59] LABS: BAND NEUTROPHILS % 12 % (0-10); BASOPHILS % (MANUAL) 1 % (0-1); PLATELET MORPHOLOGY COMMENT NORMAL (NORMAL)
[2019-05-08] MEDS: COLACE CAP 100 MG PO PRN (22:26)
[2019-05-09] MEDS: DUONEB 0.5 MG/3 MG (3 mL) NEB SCH ×4 (01:57→17:15)
[2019-05-09] MEDS: PULMICORT NEB TX 0.5 MG NEB SCH ×2 (01:57→09:05)
[2019-05-09] MEDS: VANCOMYCIN IV *PREMIX 1 G/200 ML BAG 1 G/200 ML PIGGYBACK IV SCH ×3 (05:36→21:56)
[2019-05-09] MEDS: VISTARIL PO SCH ×3 (05:36→21:56)
[2019-05-09] MEDS: NYSTATIN CREAM TOP SCH ×3 (05:36→21:56)
[2019-05-09] MEDS: NEURONTIN CAP 400 MG PO SCH ×3 (05:36→21:55)
[2019-05-09] MEDS: TYLENOL 325 MG TAB PO PRN ×3 (05:37→21:59)
[2019-05-09 06:12] LABS: BASOPHILS % (AUTO) 1.3 % (0.2-1.0); EOSINOPHILS # (AUTO) 0.1 x10^3/uL (0.0-0.2); EOSINOPHILS % (AUTO) 4.7 % (0.9-2.9); HEMATOCRIT 36.7 % (42.0-54.0); HEMOGLOBIN 12.7 g/dL (13.5-18.0); LYMPHOCYTES # (AUTO) 0.6 X10^3/uL (1.3-2.9); LYMPHOCYTES % (AUTO) 20.9 % (21.0-51.0); MEAN CORPUSCULAR HEMOGLOBIN 30.6 pg (27.0-34.0); MEAN CORPUSCULAR HGB CONC 34.7 g/dL (33.0-35.0); MEAN CORPUSCULAR VOLUME 88.2 fL (80.0-100.0); MEAN PLATELET VOLUME 7.5 fL (7.4-11.0); MONOCYTES # (AUTO) 0.3 x10^3/uL (0.3-0.8); MONOCYTES % (AUTO) 10.8 % (0.0-13.0); NEUTROPHILS # (AUTO) 1.8 x10^3/uL (2.2-4.8); NEUTROPHILS % (AUTO) 62.3 % (42.0-75.0); PLATELET COUNT 167 X10^3/uL (150.0-450.0); RED BLOOD COUNT 4.16 X10^6/uL (4.7-6.0); RED CELL DISTRIBUTION WIDTH 13.7 % (11.6-16.5); WHITE BLOOD COUNT 2.9 X10^3/uL (3.6-10.0)
[2019-05-09 06:24] LABS: ALANINE AMINOTRANSFERASE 16 Units/L (12-78); ALBUMIN 2.7 g/dL (3.4-5.0); ALKALINE PHOSPHATASE 90 Units/L (46-116); ASPARTATE AMINO TRANSFERASE 25 Units/L (15-37); BLOOD UREA NITROGEN 11 mg/dL (7-18); CALCIUM 7.5 mg/dL (8.5-10.1); CARBON DIOXIDE 25.8 mmol/L (21-32); CHLORIDE 106 mmol/L (98-107); COR CA(FOR HYPOALB) 8.5 mg/dL (8.5-10.1); CREATININE 1.02 mg/dL (0.70-1.30); SODIUM 139 mmol/L (136-145); TOTAL PROTEIN 6.9 g/dL (6.4-8.2); eGFR NON BLACK RACES > 60 (>60)
[2019-05-09 07:13] LABS: BAND NEUTROPHILS % 9 % (0-10); BASOPHILS % (MANUAL) 1 % (0-1); PLATELET MORPHOLOGY COMMENT NORMAL (NORMAL); POIKILOCYTOSIS SLIGHT
[2019-05-09 07:14] LABS: ANISOCYTOSIS SLIGHT
[2019-05-09] MEDS: NYSTATIN SUSP MT SCH ×4 (09:22→21:55)
[2019-05-09] MEDS: PROTONIX INJ 40 MG VIAL IVP SCH ×2 (09:22→21:55)
[2019-05-09] MEDS: KENALOG CREAM TOP SCH ×2 (09:23→21:54)
[2019-05-09 14:59] LABS: CREATININE 1.04 mg/dL (0.70-1.30); VANCOMYCIN,TROUGH 16.1 ug/mL (15-20)
[2019-05-09] MEDS: NS 1000 ML 1,000 ML IV SCH (19:56)
[2019-05-09] MEDS: COLACE CAP 100 MG PO PRN (22:00)
[2019-05-09] MEDS ORDERED: PHENERGAN INJ 25 MG IM ONE (23:47)
[2019-05-09] MEDS ORDERED: NORCO 5/325 MG TAB ONE (23:47)
[2019-05-09] MEDS: NORCO 5/325 MG TAB PO PRN ×2 (23:56→23:59)
[2019-05-09] MEDS: PHENERGAN INJ 25 MG IM PRN (23:58)
[2019-05-10] MEDS: TYLENOL 325 MG TAB PO PRN ×2 (02:56→22:05)
[2019-05-10] MEDS: NS 1000 ML 1,000 ML IV SCH ×4 (02:57→19:50)
[2019-05-10 05:43] LABS: BASOPHILS % (AUTO) 1.6 % (0.2-1.0); EOSINOPHILS # (AUTO) 0.1 x10^3/uL (0.0-0.2); EOSINOPHILS % (AUTO) 3.3 % (0.9-2.9); HEMATOCRIT 35.7 % (42.0-54.0); HEMOGLOBIN 12.4 g/dL (13.5-18.0); LYMPHOCYTES # (AUTO) 0.6 X10^3/uL (1.3-2.9); LYMPHOCYTES % (AUTO) 22.4 % (21.0-51.0); MEAN CORPUSCULAR HEMOGLOBIN 30.6 pg (27.0-34.0); MEAN CORPUSCULAR HGB CONC 34.8 g/dL (33.0-35.0); MEAN PLATELET VOLUME 7.5 fL (7.4-11.0); MONOCYTES # (AUTO) 0.3 x10^3/uL (0.3-0.8); MONOCYTES % (AUTO) 12.4 % (0.0-13.0); NEUTROPHILS # (AUTO) 1.5 x10^3/uL (2.2-4.8); NEUTROPHILS % (AUTO) 60.3 % (42.0-75.0); PLATELET COUNT 170 X10^3/uL (150.0-450.0); RED BLOOD COUNT 4.06 X10^6/uL (4.7-6.0); RED CELL DISTRIBUTION WIDTH 13.5 % (11.6-16.5); WHITE BLOOD COUNT 2.6 X10^3/uL (3.6-10.0)
[2019-05-10 05:52] LABS: ALANINE AMINOTRANSFERASE 18 Units/L (12-78); ALBUMIN 2.6 g/dL (3.4-5.0); ALKALINE PHOSPHATASE 92 Units/L (46-116); ASPARTATE AMINO TRANSFERASE 30 Units/L (15-37); BLOOD UREA NITROGEN 10 mg/dL (7-18); CALCIUM 7.6 mg/dL (8.5-10.1); CARBON DIOXIDE 25.6 mmol/L (21-32); CHLORIDE 104 mmol/L (98-107); COR CA(FOR HYPOALB) 8.7 mg/dL (8.5-10.1); SODIUM 137 mmol/L (136-145); TOTAL PROTEIN 6.9 g/dL (6.4-8.2); eGFR NON BLACK RACES > 60 (>60)
[2019-05-10] MEDS: NYSTATIN CREAM TOP SCH ×3 (05:54→21:27)
[2019-05-10] MEDS: VISTARIL PO SCH ×3 (05:54→21:28)
[2019-05-10] MEDS: NEURONTIN CAP 400 MG PO SCH ×3 (05:54→21:27)
[2019-05-10] MEDS: VANCOMYCIN IV *PREMIX 1 G/200 ML BAG 1 G/200 ML PIGGYBACK IV SCH ×3 (05:54→21:28)
[2019-05-10] MEDS: NORCO 5/325 MG TAB PO PRN ×3 (05:55→21:27)
[2019-05-10] MEDS: K-RIDER 10 MEQ/NS 100 ML 10 MEQ/100 ML BAG IV PRN (06:33)
[2019-05-10 06:36] LABS: PLATELET MORPHOLOGY COMMENT NORMAL (NORMAL)
[2019-05-10] MEDS: NYSTATIN SUSP MT SCH ×4 (08:16→21:24)
[2019-05-10] MEDS: KENALOG CREAM TOP SCH ×2 (08:16→21:23)
[2019-05-10] MEDS: DUONEB 0.5 MG/3 MG (3 mL) NEB SCH ×4 (08:45→20:30)
[2019-05-10] MEDS: PULMICORT NEB TX 0.5 MG NEB SCH ×2 (08:45→20:30)
[2019-05-10] MEDS: KLONOPIN TAB 0.5 MG PO SCH ×2 (10:02→21:23)
[2019-05-10] MEDS: PROTONIX INJ 40 MG VIAL IVP SCH ×2 (10:02→21:25)
[2019-05-10] MEDS: TOPAMAX PO SCH ×2 (10:03→21:27)
[2019-05-10] MEDS: PHENERGAN INJ 25 MG IM PRN ×2 (12:30→21:26)
[2019-05-10] MEDS: MAGNESIUM SULFATE 1 GRAM/100 mL PREMIX 1 GM/100 ML BAG IV PRN ×2 (14:01→16:02)
--- NOTE | 2019-05-10 18:32 | PCM.PROG ---
Progress Note - Progress Note for Day of Date of Exam: 05/09/19 - Subjective Subjective: IS BEING TREATED FOR SCROTAL CELLULITIS AND ABDOMINAL PAIN. TODAY, HE IS ALERT AND ORIENTED, LYING IN BED ON MORNING ROUNDS. HE CONTINUES WITH ABDOMINAL PAIN AND HEADACHE TODAY. ON EXAMINATION, HEART IS REGULAR IN RATE AND RHYTHM. BILATERAL LUNGS ARE NOTED WITH DIMINISHED LUNG SOUN DS THROUGHOUT. ABDOMEN IS ROUND, SOFT, AND NOTED WITH DIFFUSE TENDERNESS. HE IS NOTED WITH A DIFFUSE RASH AND SCROTAL SWELLING AND REDNESS. HIS VITALS THIS MORNING ARE: 98.6-100-22-95%-122/66. LABS WERE OBTAINED. ABNORMAL LAB VALUES INCLUDE THE FOLLOWING: WBC 2.9, RBC 4.16, HGB 12.7, HCT 36.7, CALCIUM 7.5, ALBUMIN 2.7. BLOOD AND SPUTUM CULTURES ARE PENDING. HE IS CURRENTLY RECEIVING NORMAL SALINE AT 75 ML/HR, IV VANCOMYCIN, RESPIRATORY TX, THE POTASSIUM AND MAGNESIUM PROTOCOL, NYSTATIN, KENALOG CREAM, PHENERGAN PRN, NORCO PRN, AND HOME MEDICATIONS WERE RESUMED. WE WILL CONTINUE WITH CURRENT PLAN OF CARE TODAY. OTHERWISE, WE WILL FOLLOW UP WITH AM LABS AND CONTINUE TO MONITOR. - Past Medical Family Social History Past Med/Fam/Surg Hx: No changes since H&P Allergies: Allergies Penicillins Allergy (Verified 02/23/19 20:19) tramadol Allergy (Verified 02/23/19 20:19) codeine Adverse Reaction (Mild, Verified 02/23/19 20:19) itching diphenhydramine Adverse Reaction (Mild, Verified 02/23/19 20:19) RED MAN fluconazole [From Diflucan] Adverse Reaction (Verified 02/23/19 20:19) - Review of Systems ROS: No change since H&P - Vital Signs and I&O's Vital Signs: Temperature 99.5 F Pulse Rate 80 Respiratory Rate 18 Blood Pressure [Right Arm] 125/84 Blood Pressure [Left Arm] 125/84 Blood Pressure 124/90 O2 Sat by Pulse Oximetry 96 Intake and Output: Intake & Output 05/08/19 05/09/19 05/10/19 05/11/19 11:59 11:59 11:59 11:59 Intake Total 4567 / 4567 4779 / 4779 3350 / 3350 1671 / 1671 Output Total 500 / 500 5100 / 5100 650 / 650 600 / 600 Balance 4067 / 4067 -321 / -321 2700 / 2700 1071 / 1071 - Physical Exam Oriented: Normal Eyes: Normal Ear: Normal Nose: Normal Throat: Red, Exudate, Dry Respiratory: Diminished Cardiovascular: Murmur : Normal Auscultation: Bowel Sounds: Normal Palpation: Normal Tenderness: Epigastric Skin: Decreased Turgur, Rash (DIFFUSE RED RASH, SOME PUSTULAR LESION WITH ERYTHEMATOUS BASE ), Red Musculoskeletal: Back:Thoracic, Back:Lumbar Psychiatric: Anxiety Mood Description: Anxious Affect: Anxious Speech Pattern: Clear, Appropriate - Laboratory and Diagnostics Result Diagrams: 05/10/19 04:34 05/10/19 13:02 Labs: 05/06/19 13:50 Blood Blood Culture - Preliminary 05/08/19 17:28 Blood Blood Culture - Preliminary 05/08/19 17:00 Blood Blood Culture - Preliminary 05/08/19 16:20 Sputum - Expectorated Sputum Sputum Culture - Final Klebsiella Pneumoniae#2 05/08/19 16:20 Sputum - Expectorated Sputum - Final 05/06/19 14:00 Blood Blood Culture - Preliminary Laboratory WBC 2.6 X10^3/uL (3.6-10.0) L 05/10/19 04:34 RBC 4.06 X10^6/uL (4.7-6.0) L 05/10/19 04:34 Hgb 12.4 g/dL (13.5-18.0) L 05/10/19 04:34 Hct 35.7 % (42.0-54.0) L 05/10/19 04:34 MCV 88.0 fL (80.0-100.0) 05/10/19 04:34 MCH 30.6 pg (27.0-34.0) 05/10/19 04:34 MCHC 34.8 g/dL (33.0-35.0) 05/10/19 04:34 RDW 13.5 % (11.6-16.5) 05/10/19 04:34 Plt Count 170 X10^3/uL (150.0-450.0) 05/10/19 04:34 Plt Count Comment Adequate (ADEQUATE) 05/10/19 04:34 MPV 7.5 fL (7.4-11.0) 05/10/19 04:34 Neut % (Auto) 60.3 % (42.0-75.0) 05/10/19 04:34 Lymph % (Auto) 22.4 % (21.0-51.0) 05/10/19 04:34 [place] % (Auto) 12.4 % (0.0-13.0) 05/10/19 04:34 Eos % (Auto) 3.3 % (0.9-2.9) H 05/10/19 04:34 Baso % (Auto) 1.6 % (0.2-1.0) H 05/10/19 04:34 Neut # (Auto) 1.5 x10^3/uL (2.2-4.8) L 05/10/19 04:34 Lymph # (Auto) 0.6 X10^3/uL (1.3-2.9) L 05/10/19 04:34 [place] # (Auto) 0.3 x10^3/uL (0.3-0.8) 05/10/19 04:34 Eos # (Auto) 0.1 x10^3/uL (0.0-0.2) 05/10/19 04:34 Baso # (Auto) 0.0 X10^3/uL (0.0-0.1) 05/10/19 04:34 Absolute Nucleated RBC 0.3 /100WBC 05/10/19 04:34 Total Counted 100 05/10/19 04:34 Neutrophils % (Manual) 60 % (39-76) 05/10/19 04:34 Band Neutrophils % 9 % (0-10) 05/09/19 04:53 Lymphocytes % (Manual) 24 % (13-43) 05/10/19 04:34 Monocytes % (Manual) 14 % (4-9) H 05/10/19 04:34 Eosinophils % (Manual) 2 % (0-6) 05/10/19 04:34 Basophils % (Manual) 1 % (0-1) 05/09/19 04:53 Plt Morphology Comment Normal (NORMAL) 05/10/19 04:34 RBC Morphology Normal (NORMAL) 05/10/19 04:34 Poikilocytosis Slight A 05/09/19 04:53 Anisocytosis Slight A 05/09/19 04:53 Sodium 137 mmol/L (136-145) 05/10/19 04:34 Corrected Sodium TNP 05/10/19 04:34 Potassium 4.1 mmol/L (3.5-5.1) 05/10/19 13:02 Chloride 104 mmol/L (98-107) 05/10/19 04:34 Carbon Dioxide 25.6 mmol/L (21-32) 05/10/19 04:34 BUN 10 mg/dL (7-18) 05/10/19 04:34 Creatinine 1.10 mg/dL (0.70-1.30) 05/10/19 04:34 Est GFR (MDRD) Af Amer > 60 (>60) 05/10/19 04:34 Est GFR (MDRD) Non-Af > 60 (>60) 05/10/19 04:34 Glucose 94 mg/dL (65-99) 05/10/19 04:34 Calcium 7.6 mg/dL (8.5-10.1) L 05/10/19 04:34 Corrected Calcium 8.7 mg/dL (8.5-10.1) 05/10/19 04:34 Magnesium 1.7 mg/dL (1.7-2.9) 05/10/19 04:34 Total Bilirubin 0.40 mg/dL (0.2-1.0) 05/10/19 04:34 AST 30 Units/L (15-37) 05/10/19 04:34 ALT 18 Units/L (12-78) 05/10/19 04:34 Alkaline Phosphatase 92 Units/L (46-116) 05/10/19 04:34 Total Protein 6.9 g/dL (6.4-8.2) 05/10/19 04:34 Albumin 2.6 g/dL (3.4-5.0) L 05/10/19 04:34 Globulin 4.3 g/dL (2.5-4.5) 05/10/19 04:34 Albumin/Globulin Ratio 0.6 Ratio (1.1-2.1) L 05/10/19 04:34 Specimen Type Clean catch urine 05/06/19 17:02 Urine Color Yellow (YELLOW) 05/06/19 17:02 Urine Appearance Clear (CLEAR) 05/06/19 17:02 Urine pH 6.5 (5.0 - 8.0) 05/06/19 17:02 Ur Specific [place] 1.010 (1.000-1.030) 05/06/19 17:02 Urine Protein 1+ (NEGATIVE) 05/06/19 17:02 Urine Glucose (UA) Negative (NEGATIVE) 05/06/19 17:02 Urine Ketones Negative (NEGATIVE) 05/06/19 17:02 Urine Occult Blood 1+ (NEGATIVE) 05/06/19 17:02 Urine Nitrite Negative (NEGATIVE) 05/06/19 17:02 Urine Bilirubin Negative (NEGATIVE) 05/06/19 17:02 Urine Urobilinogen 1+ (NORMAL) 05/06/19 17:02 Ur Leukocyte Esterase Negative (NEGATIVE) 05/06/19 17:02 Urine RBC 0-2 /HPF (0-3) 05/06/19 17:02 Urine WBC 0-2 /HPF (0-5) 05/06/19 17:02 Ur Squamous Epith Cells Rare /HPF (NEGATIVE) 05/06/19 17:02 Urine Bacteria Negative /HPF (NEGATIVE) 05/06/19 17:02 Ur Culture Indicated? No/not indicated 05/06/19 17:02 Vancomycin Trough 16.1 ug/mL (15-20) 05/09/19 14:28 Urine Opiates Screen Negative (NEG=<300) 05/06/19 17:02 Urine Methadone Screen Negative (NEG=<300) 05/06/19 17:02 Ur Barbiturates Screen Negative (NEG=<200) 05/06/19 17:02 Ur Phencyclidine Scrn Negative (NEG=<25) 05/06/19 17:02 Ur Amphetamines Screen Negative (NEG=<1000) 05/06/19 17:02 U Benzodiazepines Scrn Negative (NEG=<200) 05/06/19 17:02 Urine Cocaine Screen Negative (NEG=<300) 05/06/19 17:02 U Marijuana (THC) Screen Negative (NEG=<50) 05/06/19 17:02 Influenza Type A (PCR) Negative (NEGATIVE) 05/06/19 17:02 Influenza Type B (PCR) Negative (NEGATIVE) 05/06/19 17:02 - Plan (1) Abdominal pain Status: Acute Qualifiers: Abdominal location: generalized Qualified Code(s): R10.84 - Generalized abdominal pain (2) Nausea, vomiting and diarrhea Status: Acute (3) Generalized weakness Status: Acute (4) Bacterial skin infection Status: Acute (5) History of HIV infection Status: Chronic (6) Seizure disorder Status: Chronic
[2019-05-10] MEDS: LEVAQUIN PREMIX IV 750 MG 750 MG/150 ML BAG IV SCH (21:00)
[2019-05-10 21:09] LABS: CREATININE 0.87 mg/dL (0.70-1.30)
[2019-05-10 21:20] LABS: VANCOMYCIN,TROUGH 20.6 ug/mL (15-20)
[2019-05-11] MEDS: NORCO 5/325 MG TAB PO PRN (04:09)
[2019-05-11] MEDS: NYSTATIN CREAM TOP SCH (05:23)
[2019-05-11] MEDS: NEURONTIN CAP 400 MG PO SCH (05:23)
[2019-05-11] MEDS: VANCOMYCIN IV *PREMIX 1 G/200 ML BAG 1 G/200 ML PIGGYBACK IV SCH (05:24)
[2019-05-11] MEDS: VISTARIL PO SCH (05:24)
[2019-05-11] MEDS: NS 1000 ML 1,000 ML IV SCH (06:02)
[2019-05-11 06:22] LABS: EOSINOPHILS # (AUTO) 0.1 x10^3/uL (0.0-0.2); EOSINOPHILS % (AUTO) 3.6 % (0.9-2.9); HEMOGLOBIN 15.4 g/dL (13.5-18.0); LYMPHOCYTES # (AUTO) 0.5 X10^3/uL (1.3-2.9); LYMPHOCYTES % (AUTO) 18.2 % (21.0-51.0); MEAN CORPUSCULAR HEMOGLOBIN 30.3 pg (27.0-34.0); MEAN CORPUSCULAR HGB CONC 34.2 g/dL (33.0-35.0); MEAN CORPUSCULAR VOLUME 88.5 fL (80.0-100.0); MEAN PLATELET VOLUME 7.3 fL (7.4-11.0); MONOCYTES # (AUTO) 0.3 x10^3/uL (0.3-0.8); MONOCYTES % (AUTO) 9.4 % (0.0-13.0); NEUTROPHILS % (AUTO) 67.8 % (42.0-75.0); PLATELET COUNT 214 X10^3/uL (150.0-450.0); RED BLOOD COUNT 5.08 X10^6/uL (4.7-6.0); RED CELL DISTRIBUTION WIDTH 13.6 % (11.6-16.5)
[2019-05-11 06:28] LABS: ALANINE AMINOTRANSFERASE 19 Units/L (12-78); ALBUMIN 3.2 g/dL (3.4-5.0); ALKALINE PHOSPHATASE 118 Units/L (46-116); ASPARTATE AMINO TRANSFERASE 53 Units/L (15-37); BLOOD UREA NITROGEN 13 mg/dL (7-18); CALCIUM 8.2 mg/dL (8.5-10.1); CARBON DIOXIDE 23.9 mmol/L (21-32); CHLORIDE 100 mmol/L (98-107); COR CA(FOR HYPOALB) 8.8 mg/dL (8.5-10.1); CREATININE 1.03 mg/dL (0.70-1.30); SODIUM 133 mmol/L (136-145); TOTAL PROTEIN 8.6 g/dL (6.4-8.2); eGFR NON BLACK RACES > 60 (>60)
[2019-05-11 07:53] LABS: BAND NEUTROPHILS % 2 % (0-10); PLATELET MORPHOLOGY COMMENT NORMAL (NORMAL)
[2019-05-11] MEDS: KENALOG CREAM TOP SCH (08:17)
[2019-05-11] MEDS: NYSTATIN SUSP MT SCH ×2 (08:56→12:08)
[2019-05-11] MEDS: KLONOPIN TAB 0.5 MG PO SCH (09:05)
[2019-05-11] MEDS: TOPAMAX PO SCH (09:05)
[2019-05-11] MEDS: LEVAQUIN PREMIX IV 750 MG 750 MG/150 ML BAG IV SCH (09:05)
[2019-05-11] MEDS: PROTONIX INJ 40 MG VIAL IVP SCH (09:05)
[2019-05-11] MEDS ORDERED: PERCOCET TAB 5/325 MG PO ONE (09:19)
--- NOTE | 2019-05-11 10:11 | CT ---
HISTORYSINUS PROBLEMS, HEADACHE.Study: CT brain without contrastComparison: [Brain MRI examination dated October 17, 2018.]Technique:Multiple axial images of the brain were obtained from the skull base to the vertex [without] administration of IV contrast.Findings:[No acute intraparenchymal hemorrhage or mass can be identified.] [No extra-axial fluid collections are seen.] [No alteration in the attenuation of the brain parenchyma can be identified to suggest acute or subacute ischemic change.] However, if the patients symptoms are clinically & neurologically concerning for an acute ischemic event, then MR imaging of the brain with DWI sequencing could be considered to exclude an acute CVA (based on this patient?s clinical presentation and the specific medical circumstances). [The ventricular system is symmetric and nondilated.] [The extracranial structures are grossly unremarkable. The visualized paranasal sinuses and mastoid air cells are also clear without evidence for acute sinusitis on this exam.]IMPRESSION:Negative head CT examination. Sinuses are now clear.Electronically signed by: PETERSON POE III (May 11, 2019 10:10:10)
[2019-05-11 12:01] VITALS: BP 113/70
== END 2019-05-11 13:55 | disposition home or self-care (01) | DRG 728 ==
LOC: ICU 10:50
PROVIDERS: ADMIT Internal Medicine; ATTEND Internal Medicine
DX: N49.2 Inflammatory disorders of scrotum; R53.1 Weakness; L73.9 Follicular disorder, unspecified; R11.2 Nausea with vomiting, unspecified; Z79.899 Other long term (current) drug therapy; I10 Essential (primary) hypertension; K75.9 Inflammatory liver disease, unspecified; N50.89 Other specified disorders of the male genital organs; F12.90 Cannabis use, unspecified, uncomplicated; G40.909 Epilepsy, unspecified, not intractable, without status epilepticus; J20.8 Acute bronchitis due to other specified organisms; R19.7 Diarrhea, unspecified; M50.30 Other cervical disc degeneration, unspecified cervical region; B20 Human immunodeficiency virus [HIV] disease; M51.36 Other intervertebral disc degeneration, lumbar region; R42 Dizziness and giddiness; B96.1 Klebsiella pneumoniae [K. pneumoniae] as the cause of diseases classified elsewhere; Z23 Encounter for immunization; E87.6 Hypokalemia; J44.9 Chronic obstructive pulmonary disease, unspecified; F41.8 Other specified anxiety disorders
CPT/HCPCS: 36415; 70450; 71020; 71046; 74022; 80053; 80202; 80307; 81001; 82565; 83735; 84132; 85025; 87040; 87070; 87077; 87186; 87205; 87502; 90670; 90674; 90686; 94640; 97161; A4222; C9113; J1885; J1956; J2550; J3370; J3475; J3480; J3490; J7030; J7620; J7626; Q0177

== ENCOUNTER 2019-05-20 11:58 | Observation (INO) ==
--- NOTE | 2019-05-20 12:33 | DR.H&P ---
H&P - History & Physical for Day of: H&P Date: 05/20/19 - Chief Complaint Chief Complaint: N/V, UPPER ABDOMINAL, DIFFICULTY SWALLOWING - History of Present Illness History of Present Illness: PT IS 48 WM DIRECT ADMIT FROM DR MAURA MAURICE OFF ICE WITH CO UPPER ABDOMINAL PAIN, N/V. PT STATE HE WILL ATTEMPT TO EAT, "FEELS HUNGER PAIN" BUT WILL FEEL LIKE - Past Medical History Past Medical History: Angina, Hypertension, Depression, Anxiety, Seizures, COPD, Migraines, Headaches Additional Medical History: HIV, HEP C - Past Surgical History Surgical History: Other - Family History Family Medical History: Diabetes Mellitus, Cancer, [place] - Social History Does patient currently use any type of tobacco product: Yes Have you used tobacco products in the last 12 months: Yes Type of Tobacco Use: Cigarettes Does any household member use tobacco: No Alcohol Use: None Drug Use: None Risks, benefits, and alternatives of opioids discussed: Yes Prescription drug monitoring program results: PDMP reviewed and no concerns identified - Medications Home Medications: Penicillins Allergy (Verified 02/23/19 20:19) tramadol Allergy (Verified 02/23/19 20:19) codeine Adverse Reaction (Mild, Verified 02/23/19 20:19) itching diphenhydramine Adverse Reaction (Mild, Verified 02/23/19 20:19) fluconazole [From Diflucan] Adverse Reaction (Verified 02/23/19 20:19) - Review of Systems Constitutional: Weakness Eyes: No Symptoms Reported ENT: No Symptoms Reported Respiratory: Cough Cardiovascular: No Symptoms Reported Gastrointestinal: Nausea, Vomiting, Abdominal Pain Genitourinary: No Symptoms Reported Musculoskeletal: Neck Pain Skin: Rash Neurological: No Symptoms Reported - Physical Exam Vital Signs: Blood Pressure [Right Arm] 125/84 Blood Pressure [Left Arm] 109/76 Oriented: Normal Eyes: Normal Ear: Normal Nose: Normal Throat: Normal Respiratory: Rhonchi Throughout (MILD ), RLL Diminished, LLL Diminished Cardiovascular: Normal : Normal Auscultation: Bowel Sounds: Normal Palpation: Normal Tenderness: Epigastric Skin: Decreased Turgur Musculoskeletal: Tender (C SPINE TENDERNESS) Psychiatric: Anxiety Affect: Anxious Speech Pattern: Clear, Appropriate - Assessment/Plan (1) Dysphagia Status: Acute Plan: ADMIT, NPO EXCEPT ICE CHIPS. IV DIFLUCAN, REPEAT BC COLLECTED ON 05/19. GENTLE IV HYDRATION, PPI THERAPY. IV DIFLUCAN, GI CONSULT WITH DR GRANT. NAUSEA CONTROL, AMYLASE AND LIPASE (2) Abdominal pain Qualifiers: Abdominal location: generalized Qualified Code(s): R10.84 - Generalized abdominal pain Status: Acute (3) Hepatitis Status: Acute (4) COPD (chronic obstructive pulmonary disease) Status: Acute (5) Dermatitis Status: Acute (6) HIV disease Status: Chronic - Allergies Allergies/Adverse Reactions: Allergies Allergy/AdvReac Type Severity Reaction Status Date / Time Penicillins Allergy Verified 02/23/19 20:19 tramadol Allergy Verified 02/23/19 20:19 codeine AdvReac Mild itching Verified 02/23/19 20:19 diphenhydramine AdvReac Mild Verified 02/23/19 20:19 fluconazole [From Diflucan] AdvReac Verified 02/23/19 20:19
[2019-05-20] MEDS ORDERED: DIFLUCAN 100 MG IV (MIX by PHARMACY)* 100 MG/50 ML BAG IV SCH (13:00)
[2019-05-20 13:51] LABS: BASOPHILS % (AUTO) 0.9 % (0.2-1.0); EOSINOPHILS # (AUTO) 0.1 x10^3/uL (0.0-0.2); EOSINOPHILS % (AUTO) 3.9 % (0.9-2.9); HEMATOCRIT 40.3 % (42.0-54.0); HEMOGLOBIN 13.8 g/dL (13.5-18.0); LYMPHOCYTES # (AUTO) 0.2 X10^3/uL (1.3-2.9); LYMPHOCYTES % (AUTO) 8.2 % (21.0-51.0); MEAN CORPUSCULAR HEMOGLOBIN 29.9 pg (27.0-34.0); MEAN CORPUSCULAR HGB CONC 34.1 g/dL (33.0-35.0); MEAN CORPUSCULAR VOLUME 87.6 fL (80.0-100.0); MEAN PLATELET VOLUME 7.7 fL (7.4-11.0); MONOCYTES # (AUTO) 0.2 x10^3/uL (0.3-0.8); MONOCYTES % (AUTO) 7.5 % (0.0-13.0); NEUTROPHILS % (AUTO) 79.5 % (42.0-75.0); PLATELET COUNT 160 X10^3/uL (150.0-450.0); RED CELL DISTRIBUTION WIDTH 13.7 % (11.6-16.5); WHITE BLOOD COUNT 2.5 X10^3/uL (3.6-10.0)
--- NOTE | 2019-05-20 13:54 | RAD ---
HISTORYAbdominal painSTUDYAbdomen with PA chest, three [id number] chest demonstrates no acute abnormality. There is elevation of left diaphragm with probably chronic pleural thickening at the left costophrenic angle. No pleural fluid or pneumoperitoneum seen.Additional supine and upright views of abdomen demonstrate mild nonobstructive gas distention of scattered segments of small bowel and colon. No definite free air or pneumatosis, ascites or pathologic calcification. The spleen is upper normal in size.IMPRESSIONMild nonobstructive intestinal distention. Upper normal spleen size; correlate clinically.Electronically signed by: DARBY MIGUEL (May 20, 2019 13:53:18)
[2019-05-20 13:56] LABS: ALANINE AMINOTRANSFERASE 16 Units/L (12-78); ALBUMIN 3.1 g/dL (3.4-5.0); ALKALINE PHOSPHATASE 126 Units/L (46-116); ASPARTATE AMINO TRANSFERASE 37 Units/L (15-37); BLOOD UREA NITROGEN 16 mg/dL (7-18); CALCIUM 8.6 mg/dL (8.5-10.1); CARBON DIOXIDE 26.1 mmol/L (21-32); CHLORIDE 103 mmol/L (98-107); COR CA(FOR HYPOALB) 9.3 mg/dL (8.5-10.1); SODIUM 137 mmol/L (136-145); eGFR NON BLACK RACES > 60 (>60)
[2019-05-20 14:04] LABS: AMYLASE 71 Units/L (25-115); LIPASE 144 Units/L (73-393)
[2019-05-20 14:16] LABS: BAND NEUTROPHILS % 20 % (0-10)
[2019-05-20 14:17] LABS: PLATELET MORPHOLOGY COMMENT NORMAL (NORMAL)
[2019-05-20] MEDS: PROTONIX INJ 40 MG VIAL IVP SCH ×2 (14:17→22:02)
[2019-05-20] MEDS: NS 1000 ML 1,000 ML IV SCH (14:17)
[2019-05-20 15:17] VITALS: BMI 20.8
[2019-05-20] MEDS: DIFLUCAN 200 MG IV PREMIX* 200 MG/100 ML BAG IV SCH (15:54)
--- NOTE | 2019-05-20 16:00 | US ---
HISTORYABD PAINSTUDYLIVERCOMPARISONNoneTECHNIQUEMultiple horne scale and color flow Doppler images of the abdomen were obtained.FINDINGSThe liver is normal size and echogenicity. There is hepatopetal flow in the po rtal vein and the visualized hepatic veins and IVC are unremarkable. The hepatic artery is patent. Th e gallbladder is normal size with no gallstones or wall thickening. The common duct measures 3.3 cm. The right kidney measures 10 cm in length and is mildly echogenic throughout. There is hypoechoic mas s along the lower pole measuring 1.8 x 1.6 cm which is well circumscribed with through transmission a nd some questionable echoes throughout.IMPRESSIONNormal liver and unremarkable patent vasculatureNorm al gallbladder and biliary tree.Slightly small right kidney with increased echogenicity throughout th e parenchyma suggestive of medical renal disease and a 1.8 cm mildly complex cyst along the lower carlton e. Recommend follow-up short-term follow-up or CT correlation of the cyst.Electronically signed by: Kehinde KAUR (May 20, 2019 15:59:05)
[2019-05-20] MEDS: TYLENOL 325 MG TAB PO PRN ×2 (16:12→22:02)
[2019-05-20] MEDS ORDERED: BENADRYL INJ 50 MG VIAL IV PRN (17:54)
[2019-05-20] MEDS ORDERED: ZOFRAN INJ 4 MG VIAL IVP PRN (17:57)
[2019-05-20] MEDS: MORPHINE SULFATE INJ 2 MG INJ IVP PRN (18:33)
--- NOTE | 2019-05-20 21:02 | DR.CONSULT ---
Consult - Consultation for Day of: Date: 05/20/19 - Chief Complaint Chief Complaint: Patient referred for dysphagia, n/v. Patient with complaints of nausea, vomiting, abdominal pain and constipation. - History of Present Illness History of Present Illness: Patient is a 48 yo male who was referred for dysphagia, n/v. Patient with complaints of nausea x 2 weeks, vomiting x 2weeks last vomited today, Epigastric abdominal pain for 1 month and constipation no BM for 1 week. Patient denies dysphagia, dyspepsia, diarrhea, melena and hematochezia. Patient has never had a colon or EGD. Patient with history of Hep C with no treatment and HIV. Hgb 13.8. Hct 40.3, Plt 160, T. Bili 0.5, AST 37, ALT 16, ALP 126, Amylase 71 Lipase 144. - Past Medical History Past Medical History: Angina, Hypertension, Depression, Anxiety, Seizures, COPD, Migraines, Headaches Additional Medical History: HIV, HEP C - Past Surgical History Surgical History: Other Additional Surgical History: Aortic valve repair - Family History Family Medical History: Diabetes Mellitus, Cancer, [place] - Social History Does patient currently use any type of tobacco product: Yes Have you used tobacco products in the last 12 months: Yes Type of Tobacco Use: Cigarettes How many years tobacco product used: 20 Does any household member use tobacco: No Alcohol Use: None Drug Use: None - Medications Home Medications: Penicillins Allergy (Verified 02/23/19 20:19) tramadol Allergy (Verified 02/23/19 20:19) codeine Adverse Reaction (Mild, Verified 02/23/19 20:19) itching diphenhydramine Adverse Reaction (Mild, Verified 02/23/19 20:19) fluconazole [From Diflucan] Adverse Reaction (Verified 02/23/19 20:19) - Review of Systems Gastrointestinal: Nausea, Vomiting, Abdominal Pain, Constipation. denies: Diarrhea, Melena, Hematochezia - Physical Exam Vital Signs: Temperature 102.2 F Pulse Rate [Right Brachial] 99 Respiratory Rate 18 Blood Pressure [Right Arm] 115/62 Blood Pressure [Left Arm] 109/76 O2 Sat by Pulse Oximetry 99 Oriented: Normal Eyes: Normal Ear: Normal Nose: Normal Throat: Normal Respiratory: Clear Throughout Cardiovascular: Normal Auscultation: Bowel Sounds: Normal Palpation: Normal, Other (no distention). negative: Spleen Enlarged, Liver Enlarged, Mass Pulsatile Tenderness: RUQ, LUQ, Epigastric Skin: Normal Musculoskeletal: Normal Psychiatric: Agitation Mood Description: Anxious Affect: Anxious Speech Pattern: Clear, Appropriate - Plan Plan: Assessment. 1. Nausea, Vomiting, Abdominal Pain r/o gastric ulcer. 2. Chronic Viral Hep C. Plan. 1. EGD in am, Protonix. 2. Hepatitis Profile, Hep C quant and genotype, HCV Fibrosure, Liver US. Plan reviewded with Dr. Mann - Allergies Allergies/Adverse Reactions: Allergies Allergy/AdvReac Type Severity Reaction Status Date / Time Penicillins Allergy Verified 02/23/19 20:19 tramadol Allergy Verified 02/23/19 20:19 codeine AdvReac Mild itching Verified 02/23/19 20:19 diphenhydramine AdvReac Mild Verified 02/23/19 20:19 fluconazole [From Diflucan] AdvReac Verified 02/23/19 20:19
[2019-05-20 21:23] LABS: BILIRUBIN,URINE NEGATIVE (NEGATIVE); BLOOD/HEMOGLOBIN,URINE 1+ (NEGATIVE); GLUCOSE, URINE NEGATIVE (NEGATIVE); KETONES,URINE NEGATIVE (NEGATIVE); LEUKOCYTE ESTERASE ,URINE NEGATIVE (NEGATIVE); NITRITES,URINE NEGATIVE (NEGATIVE); PH,URINE 6.5 (5.0 - 8.0); PROTEIN,URINE NEGATIVE (NEGATIVE); UROBILINOGEN,URINE NORMAL (NORMAL)
[2019-05-20 21:29] LABS: APPEARANCE,URINE CLEAR (CLEAR); COLOR,URINE YELLOW (YELLOW)
[2019-05-20 21:30] LABS: BACTERIA,URINE NEGATIVE /HPF (NEGATIVE); RBC,URINE 0-2 /HPF (0-3); SQUAMOUS EPITHELIAL CELL,UR RARE /HPF (NEGATIVE)
[2019-05-21] MEDS: MORPHINE SULFATE INJ 2 MG INJ IVP PRN ×3 (00:09→13:27)
[2019-05-21] MEDS: NS 1000 ML 1,000 ML IV SCH ×2 (03:02→03:42)
[2019-05-21] MEDS: TYLENOL 325 MG TAB PO PRN (03:42)
[2019-05-21 07:18] LABS: BASOPHILS % (AUTO) 1.3 % (0.2-1.0); EOSINOPHILS # (AUTO) 0.1 x10^3/uL (0.0-0.2); EOSINOPHILS % (AUTO) 6.5 % (0.9-2.9); HEMATOCRIT 33.8 % (42.0-54.0); HEMOGLOBIN 11.8 g/dL (13.5-18.0); LYMPHOCYTES # (AUTO) 0.3 X10^3/uL (1.3-2.9); LYMPHOCYTES % (AUTO) 14.1 % (21.0-51.0); MEAN CORPUSCULAR HEMOGLOBIN 30.4 pg (27.0-34.0); MEAN CORPUSCULAR HGB CONC 34.9 g/dL (33.0-35.0); MEAN PLATELET VOLUME 7.5 fL (7.4-11.0); MONOCYTES # (AUTO) 0.2 x10^3/uL (0.3-0.8); MONOCYTES % (AUTO) 9.8 % (0.0-13.0); NEUTROPHILS # (AUTO) 1.5 x10^3/uL (2.2-4.8); NEUTROPHILS % (AUTO) 68.3 % (42.0-75.0); PLATELET COUNT 154 X10^3/uL (150.0-450.0); RED BLOOD COUNT 3.89 X10^6/uL (4.7-6.0); RED CELL DISTRIBUTION WIDTH 13.5 % (11.6-16.5); WHITE BLOOD COUNT 2.2 X10^3/uL (3.6-10.0)
[2019-05-21 07:29] LABS: ALANINE AMINOTRANSFERASE 15 Units/L (12-78); ALBUMIN 2.6 g/dL (3.4-5.0); ALKALINE PHOSPHATASE 105 Units/L (46-116); ASPARTATE AMINO TRANSFERASE 31 Units/L (15-37); BLOOD UREA NITROGEN 11 mg/dL (7-18); CALCIUM 7.9 mg/dL (8.5-10.1); CARBON DIOXIDE 25.8 mmol/L (21-32); CHLORIDE 102 mmol/L (98-107); CREATININE 0.85 mg/dL (0.70-1.30); SODIUM 135 mmol/L (136-145); TOTAL PROTEIN 6.9 g/dL (6.4-8.2); eGFR NON BLACK RACES > 60 (>60)
[2019-05-21 07:49] LABS: BAND NEUTROPHILS % 11 % (0-10); PLATELET MORPHOLOGY COMMENT NORMAL (NORMAL)
[2019-05-21] MEDS: PROTONIX INJ 40 MG VIAL IVP SCH (08:37)
[2019-05-21] MEDS: DIFLUCAN 200 MG IV PREMIX* 200 MG/100 ML BAG IV SCH (08:37)
[2019-05-21] MEDS ORDERED: STERILE WATER IRRIGATION IR ONE (10:49)
[2019-05-21] MEDS ORDERED: DIPRIVAN VIAL 20 ML ONE (14:06)
--- NOTE | 2019-05-21 15:14 | CT ---
HISTORY:Neck pain, degenerative discStudy: CT cervical spine without contrastComparison:NoneTechnique: Multiple axial images of the cervical spine were obtained from the skull base to the thoracic inlet without administration of IV contrast. Sagittal and coronal reformats were performed and reviewed. Dose reduction techniques including Automated Exposure Control (AEC) and adjustment of mA and kV were utilized.Findings:There is nonspecific cervical straightening, possibly degenerative or positional in nature. Vertebral body heights are preserved. Multilevel spondylosis is present. There is degenerative disc space narrowing with uncovertebral spurring and foraminal stenosis at C5-C6 and C6-C7 bilaterally. Moderate left foraminal stenosis at C3-C4 due to uncovertebral spurring and facet arthropathy. Moderate facet degenerative changes also seen throughout the cervical spine. No evidence of acute fracture or dislocation.The odontoid process and occipital condyles are intactThe visualized prevertebral and paraspinal soft tissues appear normal. Emphysematous changes are present at the lung apices.IMPRESSION:Multilevel disc disease most prominent at C5-C6 and C6-C7 with bilateral foraminal stenosis. Moderate left foraminal stenosis also noted at C3-C4 due to uncovertebral spurring and facet arthropathy.Electronically signed by: DONA FERRELL (May 21, 2019 15:13:24)
[2019-05-21 16:23] VITALS: BP 125/70
[2019-05-23 09:45] LABS: HCV VIRAL LOG 6.07 log IU/mL
[2019-05-26 16:20] LABS: HEPATITIS B SURFACE ANTIGEN Negative (Negative)
== END 2019-05-21 17:30 | disposition home or self-care (01) ==
LOC: MED/SURG
PROVIDERS: ADMIT Internal Medicine; ATTEND Internal Medicine
DX: I10 Essential (primary) hypertension; R11.2 Nausea with vomiting, unspecified; R13.11 Dysphagia, oral phase; K25.9 Gastric ulcer, unspecified as acute or chronic, without hemorrhage or perforation; L30.8 Other specified dermatitis; J44.9 Chronic obstructive pulmonary disease, unspecified; B18.2 Chronic viral hepatitis C; R10.13 Epigastric pain; B20 Human immunodeficiency virus [HIV] disease; M54.2 Cervicalgia; K20.8 Other esophagitis
CPT/HCPCS: 36415; 72125; 74022; 76705; 80053; 80074; 81001; 81599; 82150; 83690; 85025; 87040; 87522; 87536; 87902; 96360; 96361; 96374; A4217; A4222; C9113; G0378; J1200; J1450; J2270; J2704; J3490; J7030

== ENCOUNTER 2019-10-28 23:33 | Observation (INO) ==
[2019-10-28 23:51] VITALS: BMI 17.7
--- NOTE | 2019-10-29 00:07 | DR.ABDMALE ---
HPI Time seen Time Seen by Provider: 10/28/19 23:45 PCP Primary Care Physician: GIGI Complaint Chief Complaint Doctors Comments: A 48 y/o male presenting with c/o not feeling good, with some confusion, nausea (vomited x 4 today). EMS staff noted v/s showing normal FBS, His BP was normal but he was tachycardic. IVF was started and was transported to the ED. He has a hx. of HIV, ? AIDS and has not used anti-retrovirals in over 1 year as he was informed those medicines won't do him any good. Initially he was calm upon arrival here, then he became belligerent shouting and asking for dope. Upon further questioning, he admits to using Meth. and had some last 2 days ago. Chief Complaint:: PT STATES" I'M JUST GOING DOWN I'M HURTING IN MY RT SHOULDER AND I'M FEELING SICK ON MY STOMACH AND MY NECK HURTS" COVID-19 Coronavirus risk:travel/contact w/high risk person: No Has patient experienced Coronavirus symptoms: No Reviewed Nurses Notes Review: Yes Source History provided by:: pt. and EMS staff Mode of arrival Mode of Arrival: EMS Timing Onset of Chief Complaint: 10/28/19 PMH PMH Past Medical History: Yes Past Medical History: Angina, Anxiety, COPD, Depression, Migraines, Headaches, Hypertension and Seizures Past Medical History Comment: HIV Past Surgical History: Yes Surgical History: Other Family History History of Family Medical Conditions: Yes Family Medical History: Diabetes Mellitus, Cancer and [place] Social History Does patient currently use any type of tobacco product: No Have you used tobacco products in the last 12 months: No Type of Tobacco Use: None Does any household member use tobacco: No Alcohol Use: None Do you use any recreational Drugs:: Yes Lives With: Family Lives Where: Home Travel Risk Coronavirus risk:travel/contact w/high risk person: No Has patient experienced Coronavirus symptoms: No Infectious screening In the last 2 months have you had wt loss of >10#?: NO Have you had fever, night sweats or hemotysis?: No Have you traveled outside the country in the last 6 months?: No Isolation: Standard ROS Review of Systems Constitutional: No Symptoms Reported Eyes: No Symptoms Reported ENTM: No Symptoms Reported Respiratoy: No Symptoms Reported Cardiovascular: No Symptoms Reported Gastrointestinal/Abdominal: No Symptoms Reported Genitourinary: No Symptoms Reported Neurological: No Symptoms Reported Musculoskeletal: No Symptoms Reported Integumentary: No Symptoms Reported Hematologic/Lymphatic: No Symptoms Reported Endocrine: No Symptoms Reported Psychiatric: No Symptoms Reported PE Vital Signs Vital Signs: Temp Pulse Resp BP BP BP Pulse Ox 10/28/19 23:46 99 F 123 H 24 120/76 98 10/24/19 07:20 123/83 06/18/19 09:23 131/80 06/16/19 02:50 141/87 General Limitations: No Limitations General Appearance: Alert and In No Apparent Distress Head Head Exam: Atraumatic and Normocephalic Eyes Eye exam: Normal Appearance, PERRL and EOMI ENT ENT Exam: Normal Exam, Normal Oropharynx, Normal External Ear Exam and Mucous Membranes Moist Neck Neck Exam: Normal Inspection, Full ROM and Trachea Midline Chest Chest Inspection: Normal Inspection and Symmetric Chest Wall Rise Respiratory Respiratory Exam: Normal Lung Sounds Bilat; negative Accessory Muscle Use, Chest Wall Tenderness, Prolonged Expiratory Phase, Respiratory Distress and Stridor Cardiovascular Cardiovascular Exam: Regular Rate, Normal Rhythm, Normal Heart Sounds, +S1 and +S2 Abdominal Exam Abdominal Exam: Normal Inspection, Normal Bowel Sounds and Soft; negative Distention, Tenderness, Guarding, Rebound, Rigidity, Dimnished Bowel Sounds, Hyperactive Bowel Sounds, Hypoactive Bowel Sounds, Organomegaly, Trauma, Incision, Ascites, Mass, Bruit, Pulsatile Mass and Hernia Rectal Rectal Exam: Deferred Back Back Exam: Normal Inspection and Full ROM Extremeties Extremities Exam: Normal Inspection and Full ROM Exam: Male: Deferred Neurologic Neurological Exam: Alert and Oriented X3 Psychiatric Psychiatric Exam: Agitated and Anxious Skin Skin Exam: Dry and Other (small ulcerated and scabbing sores on his scalp and legs. ) COURSE Education/Counseling Education/Counseling: Patient, Education and Counseling Educated On: Treatment, Diagnosis, Prognosis and Needs for Follow Up ROR Labs Reviewed Laboratory Results Reviewed?: Yes Result Diagrams: 10/29/19 00:54 10/29/19 00:54 Laboratory: WBC 6.9 X10^3/uL (3.6-10.0) 10/29/19 00:54 RBC 4.42 X10^6/uL (4.7-6.0) L 10/29/19 00:54 Hgb 12.8 g/dL (13.5-18.0) L 10/29/19 00:54 Hct 37.7 % (42.0-54.0) L 10/29/19 00:54 MCV 85.2 fL (80.0-100.0) 10/29/19 00:54 MCH 28.9 pg (27.0-34.0) 10/29/19 00:54 MCHC 33.9 g/dL (33.0-35.0) 10/29/19 00:54 RDW 14.3 % (11.6-16.5) 10/29/19 00:54 Plt Count 212 X10^3/uL (150.0-450.0) 10/29/19 00:54 Plt Count Comment Adequate (ADEQUATE) 10/29/19 00:54 MPV 7.3 fL (7.4-11.0) L 10/29/19 00:54 Neut % (Auto) 79.9 % (42.0-75.0) H 10/29/19 00:54 Lymph % (Auto) 9.3 % (21.0-51.0) L 10/29/19 00:54 [place] % (Auto) 9.6 % (0.0-13.0) 10/29/19 00:54 Eos % (Auto) 0.1 % (0.9-2.9) L 10/29/19 00:54 Baso % (Auto) 1.1 % (0.2-1.0) H 10/29/19 00:54 Neut # (Auto) 5.5 x10^3/uL (2.2-4.8) H 10/29/19 00:54 Lymph # (Auto) 0.6 X10^3/uL (1.3-2.9) L 10/29/19 00:54 [place] # (Auto) 0.7 x10^3/uL (0.3-0.8) 10/29/19 00:54 Eos # (Auto) 0.0 x10^3/uL (0.0-0.2) 10/29/19 00:54 Baso # (Auto) 0.1 X10^3/uL (0.0-0.1) 10/29/19 00:54 Absolute Nucleated RBC 0.1 /100WBC 10/29/19 00:54 Total Counted 100 10/29/19 00:54 Neutrophils % (Manual) 59 % (39-76) 10/29/19 00:54 Band Neutrophils % 15 % (0-10) H 10/29/19 00:54 Lymphocytes % (Manual) 15 % (13-43) 10/29/19 00:54 Monocytes % (Manual) 6 % (4-9) 10/29/19 00:54 Metamyelocytes % 3 10/29/19 00:54 Myelocytes % 2 10/29/19 00:54 Plt Morphology Comment Normal (NORMAL) 10/29/19 00:54 RBC Morphology Normal (NORMAL) 10/29/19 00:54 Sodium 137 mmol/L (136-145) 10/29/19 00:54 Corrected Sodium TNP 10/29/19 00:54 Potassium 3.1 mmol/L (3.5-5.1) L 10/29/19 00:54 Chloride 102 mmol/L (98-107) 10/29/19 00:54 Carbon Dioxide 20.7 mmol/L (21-32) L 10/29/19 00:54 BUN 18 mg/dL (7-18) 10/29/19 00:54 Creatinine 1.12 mg/dL (0.70-1.30) 10/29/19 00:54 Est GFR (MDRD) Af Amer > 60 (>60) 10/29/19 00:54 Est GFR (MDRD) Non-Af > 60 (>60) 10/29/19 00:54 Glucose 98 mg/dL (65-99) 10/29/19 00:54 Lactic Acid 3.2 mmol/L (0.4-2.0) H 10/29/19 00:54 Calcium 8.2 mg/dL (8.5-10.1) L 10/29/19 00:54 Corrected Calcium 9.2 mg/dL (8.5-10.1) 10/29/19 00:54 Total Bilirubin 0.40 mg/dL (0.2-1.0) 10/29/19 00:54 AST 26 Units/L (15-37) 10/29/19 00:54 ALT 18 Units/L (12-78) 10/29/19 00:54 Alkaline Phosphatase 123 Units/L (46-116) H 10/29/19 00:54 Total Protein 7.9 g/dL (6.4-8.2) 10/29/19 00:54 Albumin 2.7 g/dL (3.4-5.0) L 10/29/19 00:54 Globulin 5.2 g/dL (2.5-4.5) H 10/29/19 00:54 Albumin/Globulin Ratio 0.5 Ratio (1.1-2.1) L 10/29/19 00:54 Amylase 22 Units/L (25-115) L 10/29/19 00:54 Lipase 47 Units/L (73-393) L 10/29/19 00:54 XRAY XRAY Interpreted by: Self X-ray Results: CXR: cardiac silhouette is normal, lungs aer free of infiltrates and the Lt. jonas-diaphragm is elevated. Radiologist report is pending. Opioid Opioid Risk Tool Age (Mikie box if 16-45): No History of Preadolescent Sexual Abuse: No Total: 0 Total Score Risk Category: Low Risk Copyright: Eliezer ROBERTS predicting aberrant behaviors Diagnosis Discharge Problem: Current recreational drug use, Acute hypokalemia, HIV disease, Agitation Instructions Instructions: Substance Use Disorder Forms: Excuse From Work Precautions for COVID19 Patient Portal Social Distancing
[2019-10-29] MEDS ORDERED: HALDOL INJ ONE (00:11)
[2019-10-29] MEDS ORDERED: HALDOL INJ IM ONE (00:11)
[2019-10-29] MEDS ORDERED: ATIVAN INJ 2 MG VIAL ONE ×2 (00:20→10:05)
[2019-10-29] MEDS ORDERED: ATIVAN INJ 2 MG VIAL IVP ONE ×2 (00:36→09:58)
[2019-10-29 01:07] LABS: BASOPHILS # (AUTO) 0.1 X10^3/uL (0.0-0.1); BASOPHILS % (AUTO) 1.1 % (0.2-1.0); EOSINOPHILS % (AUTO) 0.1 % (0.9-2.9); HEMATOCRIT 37.7 % (42.0-54.0); HEMOGLOBIN 12.8 g/dL (13.5-18.0); LYMPHOCYTES # (AUTO) 0.6 X10^3/uL (1.3-2.9); LYMPHOCYTES % (AUTO) 9.3 % (21.0-51.0); MEAN CORPUSCULAR HEMOGLOBIN 28.9 pg (27.0-34.0); MEAN CORPUSCULAR HGB CONC 33.9 g/dL (33.0-35.0); MEAN CORPUSCULAR VOLUME 85.2 fL (80.0-100.0); MEAN PLATELET VOLUME 7.3 fL (7.4-11.0); MONOCYTES # (AUTO) 0.7 x10^3/uL (0.3-0.8); MONOCYTES % (AUTO) 9.6 % (0.0-13.0); NEUTROPHILS # (AUTO) 5.5 x10^3/uL (2.2-4.8); NEUTROPHILS % (AUTO) 79.9 % (42.0-75.0); PLATELET COUNT 212 X10^3/uL (150.0-450.0); RED BLOOD COUNT 4.42 X10^6/uL (4.7-6.0); RED CELL DISTRIBUTION WIDTH 14.3 % (11.6-16.5); WHITE BLOOD COUNT 6.9 X10^3/uL (3.6-10.0)
[2019-10-29 01:14] LABS: ALANINE AMINOTRANSFERASE 18 Units/L (12-78); ALBUMIN 2.7 g/dL (3.4-5.0); ALKALINE PHOSPHATASE 123 Units/L (46-116); ASPARTATE AMINO TRANSFERASE 26 Units/L (15-37); BLOOD UREA NITROGEN 18 mg/dL (7-18); CALCIUM 8.2 mg/dL (8.5-10.1); CARBON DIOXIDE 20.7 mmol/L (21-32); CHLORIDE 102 mmol/L (98-107); COR CA(FOR HYPOALB) 9.2 mg/dL (8.5-10.1); CREATININE 1.12 mg/dL (0.70-1.30); SODIUM 137 mmol/L (136-145); TOTAL PROTEIN 7.9 g/dL (6.4-8.2); eGFR NON BLACK RACES > 60 (>60)
[2019-10-29 01:17] LABS: LACTIC ACID 3.2 mmol/L (0.4-2.0)
[2019-10-29 01:21] LABS: AMYLASE 22 Units/L (25-115); LIPASE 47 Units/L (73-393)
[2019-10-29 01:22] LABS: BAND NEUTROPHILS % 15 % (0-10); METAMYELOCYTES % 3; MYELOCYTES % 2; PLATELET MORPHOLOGY COMMENT NORMAL (NORMAL)
[2019-10-29] MEDS: NS 500 ML IV 500 ML IV ONE (01:25)
[2019-10-29] MEDS ORDERED: NS 500 ML IV 500 ML IV ONE (01:25)
[2019-10-29] MEDS ORDERED: KLOR-CON ONE (01:30)
[2019-10-29] MEDS ORDERED: KLOR-CON PO ONE (01:30)
--- NOTE | 2019-10-29 03:27 | RAD ---
HISTORYconfusion, fatigueSTUDYCHEST, 1 [id number] trachea is midline. The cardiac silhouette is mildly enlarged. Prosthetic heart valve.. Lungs are clear of acute infiltrate and consolidation. The bony thorax is unremarkable.IMPRESSIONMild cardiomegalyNo active cardiopulmonary diseaseElectronically signed by: Zeyad Murphy (Oct 29, 2019 03:26:09)
[2019-10-29 06:27] LABS: BILIRUBIN,URINE NEGATIVE (NEGATIVE); BLOOD/HEMOGLOBIN,URINE 2+ (NEGATIVE); GLUCOSE, URINE NEGATIVE (NEGATIVE); KETONES,URINE NEGATIVE (NEGATIVE); LEUKOCYTE ESTERASE ,URINE NEGATIVE (NEGATIVE); NITRITES,URINE POSITIVE (NEGATIVE); PROTEIN,URINE 2+ (NEGATIVE); UROBILINOGEN,URINE NORMAL (NORMAL)
[2019-10-29] MEDS ORDERED: TYLENOL SUPP 325 MG ONE ×2 (06:30→06:33)
[2019-10-29] MEDS ORDERED: TYLENOL 325 MG TAB PO ONE (06:31)
[2019-10-29] MEDS ORDERED: TYLENOL SUPP 650 MG PR ONE (06:37)
[2019-10-29 06:45] LABS: APPEARANCE,URINE SLIGHTLY HAZY (CLEAR); BACTERIA,URINE 1+ /HPF (NEGATIVE); COLOR,URINE DARK YELLOW (YELLOW); MUCUS,URINE FEW /HPF (NEGATIVE); RENAL EPITHELIAL CELLS,URINE RARE /HPF (NEGATIVE); SQUAMOUS EPITHELIAL CELL,UR RARE /HPF (NEGATIVE)
[2019-10-29] MEDS ORDERED: LEVAQUIN TAB 500 MG PO ONE (07:30)
[2019-10-29] MEDS ORDERED: LEVAQUIN PREMIX IV 500 MG 500 MG/100 ML BAG IV ONE ×2 (08:09→08:17)
[2019-10-29] MEDS ORDERED: NS 1000 ML 1,000 ML ONE (08:10)
[2019-10-29] MEDS ORDERED: NS 1000 ML 1,000 ML IV SCH ×2 (09:00→13:00)
--- NOTE | 2019-10-29 11:43 | DR.ABDMALE ---
HPI Time seen Time Seen by Provider: 10/28/19 23:45 PCP Primary Care Physician: GIGI Complaint Chief Complaint:: PT STATES" I'M JUST GOING DOWN I'M HURTING IN MY RT SHOULDER AND I'M FEELING SICK ON MY STOMACH AND MY NECK HURTS" COVID-19 Coronavirus risk:travel/contact w/high risk person: No Has patient experienced Coronavirus symptoms: No Source History provided by:: pt. and EMS staff Mode of arrival Mode of Arrival: EMS Timing Onset of Chief Complaint: 10/28/19 PMH PMH Past Medical History: Yes Past Medical History: Angina, Anxiety, COPD, Depression, Migraines, Headaches, Hypertension and Seizures Past Medical History Comment: HIV Past Surgical History: Yes Surgical History: Other Family History History of Family Medical Conditions: Yes Family Medical History: Diabetes Mellitus, Cancer and [place] Social History Does patient currently use any type of tobacco product: No Have you used tobacco products in the last 12 months: No Type of Tobacco Use: None Does any household member use tobacco: No Alcohol Use: None Do you use any recreational Drugs:: Yes Lives With: Family Lives Where: Home Travel Risk Coronavirus risk:travel/contact w/high risk person: No Has patient experienced Coronavirus symptoms: No Infectious screening In the last 2 months have you had wt loss of >10#?: NO Have you had fever, night sweats or hemotysis?: No Have you traveled outside the country in the last 6 months?: No Isolation: Standard PE Vital Signs Vital Signs: Temp Pulse Pulse Resp BP BP BP 10/29/19 10:50 99.4 F 108 H 20 117/76 10/29/19 06:37 22 10/28/19 23:46 99 F 123 H 24 120/76 10/24/19 07:20 123/83 06/18/19 09:23 131/80 06/16/19 02:50 141/87 Pulse Ox 10/29/19 10:50 100 10/29/19 06:37 10/28/19 23:46 98 10/24/19 07:20 06/18/19 09:23 06/16/19 02:50 COURSE Consultation Called: 11:14 Call Returned: 11:14 Consultation Comments: case discussed with DR. Crouch admit for IV antibiotics ROR Labs Reviewed Result Diagrams: 10/29/19 00:54 10/29/19 00:54 Laboratory: WBC 6.9 X10^3/uL (3.6-10.0) 10/29/19 00:54 RBC 4.42 X10^6/uL (4.7-6.0) L 10/29/19 00:54 Hgb 12.8 g/dL (13.5-18.0) L 10/29/19 00:54 Hct 37.7 % (42.0-54.0) L 10/29/19 00:54 MCV 85.2 fL (80.0-100.0) 10/29/19 00:54 MCH 28.9 pg (27.0-34.0) 10/29/19 00:54 MCHC 33.9 g/dL (33.0-35.0) 10/29/19 00:54 RDW 14.3 % (11.6-16.5) 10/29/19 00:54 Plt Count 212 X10^3/uL (150.0-450.0) 10/29/19 00:54 Plt Count Comment Adequate (ADEQUATE) 10/29/19 00:54 MPV 7.3 fL (7.4-11.0) L 10/29/19 00:54 Neut % (Auto) 79.9 % (42.0-75.0) H 10/29/19 00:54 Lymph % (Auto) 9.3 % (21.0-51.0) L 10/29/19 00:54 [place] % (Auto) 9.6 % (0.0-13.0) 10/29/19 00:54 Eos % (Auto) 0.1 % (0.9-2.9) L 10/29/19 00:54 Baso % (Auto) 1.1 % (0.2-1.0) H 10/29/19 00:54 Neut # (Auto) 5.5 x10^3/uL (2.2-4.8) H 10/29/19 00:54 Lymph # (Auto) 0.6 X10^3/uL (1.3-2.9) L 10/29/19 00:54 [place] # (Auto) 0.7 x10^3/uL (0.3-0.8) 10/29/19 00:54 Eos # (Auto) 0.0 x10^3/uL (0.0-0.2) 10/29/19 00:54 Baso # (Auto) 0.1 X10^3/uL (0.0-0.1) 10/29/19 00:54 Absolute Nucleated RBC 0.1 /100WBC 10/29/19 00:54 Total Counted 100 08 00:54 Neutrophils % (Manual) 59 % (39-76) 10/29/19 00:54 Band Neutrophils % 15 % (0-10) H 10/29/19 00:54 Lymphocytes % (Manual) 15 % (13-43) 10/29/19 00:54 Monocytes % (Manual) 6 % (4-9) 10/29/19 00:54 Metamyelocytes % 3 10/29/19 00:54 Myelocytes % 2 10/29/19 00:54 Plt Morphology Comment Normal (NORMAL) 10/29/19 00:54 RBC Morphology Normal (NORMAL) 10/29/19 00:54 Sodium 137 mmol/L (136-145) 10/29/19 00:54 Corrected Sodium TNP 10/29/19 00:54 Potassium 3.1 mmol/L (3.5-5.1) L 10/29/19 00:54 Chloride 102 mmol/L (98-107) 10/29/19 00:54 Carbon Dioxide 20.7 mmol/L (21-32) L 10/29/19 00:54 BUN 18 mg/dL (7-18) 10/29/19 00:54 Creatinine 1.12 mg/dL (0.70-1.30) 10/29/19 00:54 Est GFR (MDRD) Af Amer > 60 (>60) 10/29/19 00:54 Est GFR (MDRD) Non-Af > 60 (>60) 10/29/19 00:54 Glucose 98 mg/dL (65-99) 10/29/19 00:54 Lactic Acid 3.2 mmol/L (0.4-2.0) H 10/29/19 00:54 Calcium 8.2 mg/dL (8.5-10.1) L 10/29/19 00:54 Corrected Calcium 9.2 mg/dL (8.5-10.1) 08/06/20 00:54 Total Bilirubin 0.40 mg/dL (0.2-1.0) 10/29/19 00:54 AST 26 Units/L (15-37) 10/29/19 00:54 ALT 18 Units/L (12-78) 10/29/19 00:54 Alkaline Phosphatase 123 Units/L (46-116) H 10/29/19 00:54 Total Protein 7.9 g/dL (6.4-8.2) 10/29/19 00:54 Albumin 2.7 g/dL (3.4-5.0) L 10/29/19 00:54 Globulin 5.2 g/dL (2.5-4.5) H 10/29/19 00:54 Albumin/Globulin Ratio 0.5 Ratio (1.1-2.1) L 10/29/19 00:54 Amylase 22 Units/L (25-115) L 10/29/19 00:54 Lipase 47 Units/L (73-393) L 10/29/19 00:54 Specimen Type Catherized urine 10/29/19 06:08 Urine Color Dark yellow (YELLOW) 10/29/19 06:08 Urine Appearance Slightly hazy (CLEAR) 10/29/19 06:08 Urine pH 6.0 (5.0 - 8.0) 10/29/19 06:08 Ur Specific [place] 1.015 (1.000-1.030) 10/29/19 06:08 Urine Protein 2+ (NEGATIVE) 10/29/19 06:08 Urine Glucose (UA) Negative (NEGATIVE) 10/29/19 06:08 Urine Ketones Negative (NEGATIVE) 10/29/19 06:08 Urine Occult Blood 2+ (NEGATIVE) 10/29/19 06:08 Urine Nitrite Positive (NEGATIVE) 10/29/19 06:08 Urine Bilirubin Negative (NEGATIVE) 10/29/19 06:08 Urine Urobilinogen Normal (NORMAL) 10/29/19 06:08 Ur Leukocyte Esterase Negative (NEGATIVE) 10/29/19 06:08 Urine RBC 3-5 /HPF (0-3) A 10/29/19 06:08 Urine WBC 5-10 /HPF (0-5) A 10/29/19 06:08 Ur Squamous Epith Cells Rare /HPF (NEGATIVE) 10/29/19 06:08 Ur Renal Epithelial Cell Rare /HPF (NEGATIVE) 10/29/19 06:08 Urine Bacteria 1+ /HPF (NEGATIVE) 10/29/19 06:08 Urine Mucus Few /HPF (NEGATIVE) 10/29/19 06:08 Ur Culture Indicated? Yes/culture set up 10/29/19 06:08 Urine Opiates Screen Negative (NEG=<300) 10/29/19 06:09 Urine Methadone Screen Negative (NEG=<300) 10/29/19 06:09 Ur Barbiturates Screen Negative (NEG=<200) 10/29/19 06:09 Ur Phencyclidine Scrn Negative (NEG=<25) 10/29/19 06:09 Ur Amphetamines Screen Positive (NEG=<1000) 10/29/19 06:09 U Benzodiazepines Scrn Negative (NEG=<200) 10/29/19 06:09 Urine Cocaine Screen Negative (NEG=<300) 10/29/19 06:09 U Marijuana (THC) Screen Negative (NEG=<50) 10/29/19 06:09 SARS-CoV-2 (PCR) Negative (NEGATIVE) 10/29/19 11:20 XRAY XRAY Interpreted by: Radiologist X-ray Results: chest: mild cardiomegaly Opioid Opioid Risk Tool Age (Mikie box if 16-45): No History of Preadolescent Sexual Abuse: No Total: 0 Total Score Risk Category: Low Risk Copyright: Eliezer ROBERTS predicting aberrant behaviors Diagnosis Discharge Problem: Current recreational drug use, Acute hypokalemia, HIV disease, Agitation, Acute UTI, Carbuncle and furuncle of buttock Instructions Instructions: Substance Use Disorder Forms: Excuse From Work Precautions for COVID19 Patient Portal Social Distancing
[2019-10-29] MEDS ORDERED: PHARMACY CONSULT - VANCOMYCIN XX SCH (13:00)
--- NOTE | 2019-10-29 13:58 | DR.ABDMALE ---
HPI Time seen Time Seen by Provider: 10/28/19 23:45 PCP Primary Care Physician: GIGI Complaint Chief Complaint:: PT STATES" I'M JUST GOING DOWN I'M HURTING IN MY RT SHOULDER AND I'M FEELING SICK ON MY STOMACH AND MY NECK HURTS" COVID-19 Coronavirus risk:travel/contact w/high risk person: No Has patient experienced Coronavirus symptoms: No Source History provided by:: pt. and EMS staff Mode of arrival Mode of Arrival: EMS Timing Onset of Chief Complaint: 10/28/19 PMH PMH Past Medical History: Yes Past Medical History: Angina, Anxiety, COPD, Depression, Migraines, Headaches, Hypertension and Seizures Past Medical History Comment: HIV Past Surgical History: Yes Surgical History: Other Family History History of Family Medical Conditions: Yes Family Medical History: Diabetes Mellitus, Cancer and [place] Social History Does patient currently use any type of tobacco product: No Have you used tobacco products in the last 12 months: No Type of Tobacco Use: None Does any household member use tobacco: No Alcohol Use: None Do you use any recreational Drugs:: Yes Lives With: Family Lives Where: Home Travel Risk Coronavirus risk:travel/contact w/high risk person: No Has patient experienced Coronavirus symptoms: No Infectious screening In the last 2 months have you had wt loss of >10#?: NO Have you had fever, night sweats or hemotysis?: No Have you traveled outside the country in the last 6 months?: No Isolation: Standard PE Vital Signs Vital Signs: Temp Pulse Pulse Resp BP BP BP 10/29/19 10:50 99.4 F 108 H 20 117/76 10/29/19 06:37 22 10/28/19 23:46 99 F 123 H 24 120/76 10/24/19 07:20 123/83 06/18/19 09:23 131/80 06/16/19 02:50 141/87 Pulse Ox 10/29/19 10:50 100 10/29/19 06:37 10/28/19 23:46 98 10/24/19 07:20 06/18/19 09:23 06/16/19 02:50 COURSE Treatment Treatment: 1400: Patient has been admitted to Dr. Crouch but wants to sign out AMA. ROR Labs Reviewed Result Diagrams: 10/29/19 00:54 10/29/19 00:54 Laboratory: WBC 6.9 X10^3/uL (3.6-10.0) 10/29/19 00:54 RBC 4.42 X10^6/uL (4.7-6.0) L 10/29/19 00:54 Hgb 12.8 g/dL (13.5-18.0) L 10/29/19 00:54 Hct 37.7 % (42.0-54.0) L 10/29/19 00:54 MCV 85.2 fL (80.0-100.0) 10/29/19 00:54 MCH 28.9 pg (27.0-34.0) 10/29/19 00:54 MCHC 33.9 g/dL (33.0-35.0) 10/29/19 00:54 RDW 14.3 % (11.6-16.5) 10/29/19 00:54 Plt Count 212 X10^3/uL (150.0-450.0) 10/29/19 00:54 Plt Count Comment Adequate (ADEQUATE) 10/29/19 00:54 MPV 7.3 fL (7.4-11.0) L 10/29/19 00:54 Neut % (Auto) 79.9 % (42.0-75.0) H 10/29/19 00:54 Lymph % (Auto) 9.3 % (21.0-51.0) L 10/29/19 00:54 [place] % (Auto) 9.6 % (0.0-13.0) 10/29/19 00:54 Eos % (Auto) 0.1 % (0.9-2.9) L 10/29/19 00:54 Baso % (Auto) 1.1 % (0.2-1.0) H 10/29/19 00:54 Neut # (Auto) 5.5 x10^3/uL (2.2-4.8) H 10/29/19 00:54 Lymph # (Auto) 0.6 X10^3/uL (1.3-2.9) L 10/29/19 00:54 [place] # (Auto) 0.7 x10^3/uL (0.3-0.8) 10/29/19 00:54 Eos # (Auto) 0.0 x10^3/uL (0.0-0.2) 10/29/19 00:54 Baso # (Auto) 0.1 X10^3/uL (0.0-0.1) 10/29/19 00:54 Absolute Nucleated RBC 0.1 /100WBC 10/29/19 00:54 Total Counted 100 08 00:54 Neutrophils % (Manual) 59 % (39-76) 10/29/19 00:54 Band Neutrophils % 15 % (0-10) H 10/29/19 00:54 Lymphocytes % (Manual) 15 % (13-43) 10/29/19 00:54 Monocytes % (Manual) 6 % (4-9) 10/29/19 00:54 Metamyelocytes % 3 10/29/19 00:54 Myelocytes % 2 10/29/19 00:54 Plt Morphology Comment Normal (NORMAL) 10/29/19 00:54 RBC Morphology Normal (NORMAL) 10/29/19 00:54 Sodium 137 mmol/L (136-145) 10/29/19 00:54 Corrected Sodium TNP 10/29/19 00:54 Potassium 3.1 mmol/L (3.5-5.1) L 10/29/19 00:54 Chloride 102 mmol/L (98-107) 10/29/19 00:54 Carbon Dioxide 20.7 mmol/L (21-32) L 10/29/19 00:54 BUN 18 mg/dL (7-18) 10/29/19 00:54 Creatinine 1.12 mg/dL (0.70-1.30) 10/29/19 00:54 Est GFR (MDRD) Af Amer > 60 (>60) 10/29/19 00:54 Est GFR (MDRD) Non-Af > 60 (>60) 10/29/19 00:54 Glucose 98 mg/dL (65-99) 10/29/19 00:54 Lactic Acid 3.2 mmol/L (0.4-2.0) H 10/29/19 00:54 Calcium 8.2 mg/dL (8.5-10.1) L 10/29/19 00:54 Corrected Calcium 9.2 mg/dL (8.5-10.1) 10/29/19 00:54 Total Bilirubin 0.40 mg/dL (0.2-1.0) 10/29/19 00:54 AST 26 Units/L (15-37) 10/29/19 00:54 ALT 18 Units/L (12-78) 10/29/19 00:54 Alkaline Phosphatase 123 Units/L (46-116) H 10/29/19 00:54 Total Protein 7.9 g/dL (6.4-8.2) 10/29/19 00:54 Albumin 2.7 g/dL (3.4-5.0) L 10/29/19 00:54 Globulin 5.2 g/dL (2.5-4.5) H 10/29/19 00:54 Albumin/Globulin Ratio 0.5 Ratio (1.1-2.1) L 10/29/19 00:54 Amylase 22 Units/L (25-115) L 10/29/19 00:54 Lipase 47 Units/L (73-393) L 10/29/19 00:54 Specimen Type Catherized urine 10/29/19 06:08 Urine Color Dark yellow (YELLOW) 10/29/19 06:08 Urine Appearance Slightly hazy (CLEAR) 10/29/19 06:08 Urine pH 6.0 (5.0 - 8.0) 10/29/19 06:08 Ur Specific [place] 1.015 (1.000-1.030) 10/29/19 06:08 Urine Protein 2+ (NEGATIVE) 10/29/19 06:08 Urine Glucose (UA) Negative (NEGATIVE) 10/29/19 06:08 Urine Ketones Negative (NEGATIVE) 10/29/19 06:08 Urine Occult Blood 2+ (NEGATIVE) 10/29/19 06:08 Urine Nitrite Positive (NEGATIVE) 10/29/19 06:08 Urine Bilirubin Negative (NEGATIVE) 10/29/19 06:08 Urine Urobilinogen Normal (NORMAL) 10/29/19 06:08 Ur Leukocyte Esterase Negative (NEGATIVE) 10/29/19 06:08 Urine RBC 3-5 /HPF (0-3) A 10/29/19 06:08 Urine WBC 5-10 /HPF (0-5) A 10/29/19 06:08 Ur Squamous Epith Cells Rare /HPF (NEGATIVE) 10/29/19 06:08 Ur Renal Epithelial Cell Rare /HPF (NEGATIVE) 10/29/19 06:08 Urine Bacteria 1+ /HPF (NEGATIVE) 10/29/19 06:08 Urine Mucus Few /HPF (NEGATIVE) 10/29/19 06:08 Ur Culture Indicated? Yes/culture set up 10/29/19 06:08 Urine Opiates Screen Negative (NEG=<300) 10/29/19 06:09 Urine Methadone Screen Negative (NEG=<300) 10/29/19 06:09 Ur Barbiturates Screen Negative (NEG=<200) 10/29/19 06:09 Ur Phencyclidine Scrn Negative (NEG=<25) 10/29/19 06:09 Ur Amphetamines Screen Positive (NEG=<1000) 10/29/19 06:09 U Benzodiazepines Scrn Negative (NEG=<200) 10/29/19 06:09 Urine Cocaine Screen Negative (NEG=<300) 10/29/19 06:09 U Marijuana (THC) Screen Negative (NEG=<50) 10/29/19 06:09 SARS-CoV-2 (PCR) Negative (NEGATIVE) 10/29/19 11:20 Opioid Opioid Risk Tool Age (Mikie box if 16-45): No History of Preadolescent Sexual Abuse: No Total: 0 Total Score Risk Category: Low Risk Copyright: Eliezer ROBERTS predicting aberrant behaviors Diagnosis Discharge Problem: Current recreational drug use, Acute hypokalemia, HIV disease, Agitation, Acute UTI, Carbuncle and furuncle of buttock Instructions Instructions: Substance Use Disorder Forms: Excuse From Work Precautions for COVID19 Patient Portal Social Distancing
[2019-10-29] MEDS ORDERED: BACTRIM DS TAB PO SCH (14:44)
[2019-10-29] MEDS ORDERED: PROTONIX TAB 40 MG PO SCH (14:44)
[2019-10-29] MEDS ORDERED: VISTARIL PO SCH (14:44)
[2019-10-29] MEDS ORDERED: NEURONTIN CAP 400 MG PO SCH (14:44)
[2019-10-29] MEDS ORDERED: INDOCIN CAP 25 MG PO SCH (14:44)
[2019-10-29 15:51] VITALS: BP 127/80
[2019-10-29] MEDS ORDERED: VANCOMYCIN HCL 750 MG in D5W 250 ML IV 250 ML IV SCH (16:00)
[2019-10-29] MEDS ORDERED: SEROquel TAB 25 mg PO SCH (18:00)
--- NOTE | 2019-10-29 18:16 | DR.ABDMALE ---
HPI <BLANCO CONWAY - Last Filed: 10/29/19 18:16> Time seen Time Seen by Provider: 10/28/19 23:45 <MARLY AMARO - Last Filed: 11/25/19 10:16> PCP Primary Care Physician: GIGI Complaint Chief Complaint:: PT STATES" I'M JUST GOING DOWN I'M HURTING IN MY RT SHOULDER AND I'M FEELING SICK ON MY STOMACH AND MY NECK HURTS" COVID-19 Coronavirus risk:travel/contact w/high risk person: No Has patient experienced Coronavirus symptoms: No Source History provided by:: pt. and EMS staff Mode of arrival Mode of Arrival: EMS Timing Onset of Chief Complaint: 10/28/19 <MARLY AMARO - Last Filed: 11/25/19 10:16> PMH Past Medical History: Yes Past Medical History: Angina, Anxiety, COPD, Depression, Migraines, Headaches, Hypertension and Seizures Past Medical History Comment: HIV Past Surgical History: Yes Surgical History: Other Family History History of Family Medical Conditions: Yes Family Medical History: Diabetes Mellitus, Cancer and [place] Social History Does patient currently use any type of tobacco product: No Have you used tobacco products in the last 12 months: No Type of Tobacco Use: None Does any household member use tobacco: No Alcohol Use: None Do you use any recreational Drugs:: Yes Lives With: Family Lives Where: Home Travel Risk Coronavirus risk:travel/contact w/high risk person: No Has patient experienced Coronavirus symptoms: No Infectious screening In the last 2 months have you had wt loss of >10#?: NO Have you had fever, night sweats or hemotysis?: No Have you traveled outside the country in the last 6 months?: No Isolation: Standard PE <BLANCO CONWAY - Last Filed: 10/29/19 18:16> Vital Signs Vital Signs: Temp Pulse Pulse Resp BP BP BP 10/29/19 10:50 99.4 F 108 H 20 117/76 10/29/19 06:37 22 10/28/19 23:46 99 F 123 H 24 120/76 10/24/19 07:20 123/83 06/18/19 09:23 131/80 06/16/19 02:50 141/87 Pulse Ox 10/29/19 10:50 100 10/29/19 06:37 10/28/19 23:46 98 10/24/19 07:20 06/18/19 09:23 06/16/19 02:50 <MARLY AMARO - Last Filed: 11/25/19 10:16> Vital Signs Vital Signs: Temp Pulse Pulse Resp BP BP BP 10/29/19 10:50 99.4 F 108 H 20 117/76 10/29/19 06:37 22 10/28/19 23:46 99 F 123 H 24 120/76 10/24/19 07:20 123/83 06/18/19 09:23 131/80 06/16/19 02:50 141/87 Pulse Ox 10/29/19 10:50 100 10/29/19 06:37 10/28/19 23:46 98 10/24/19 07:20 06/18/19 09:23 06/16/19 02:50 ROR <BLANCO CONWAY - Last Filed: 10/29/19 18:16> Labs Reviewed Result Diagrams: 10/29/19 00:54 10/29/19 00:54 Laboratory: 10/29/19 06:08 Urine,Catheterized Urine Culture - Final Staphylococcus Aureus 10/29/19 06:58 Blood Blood Culture - Final Staphylococcus Aureus 10/29/19 06:46 Blood Blood Culture - Final Staphylococcus Aureus WBC 6.9 X10^3/uL (3.6-10.0) 10/29/19 00:54 RBC 4.42 X10^6/uL (4.7-6.0) L 10/29/19 00:54 Hgb 12.8 g/dL (13.5-18.0) L 10/29/19 00:54 Hct 37.7 % (42.0-54.0) L 10/29/19 00:54 MCV 85.2 fL (80.0-100.0) 10/29/19 00:54 MCH 28.9 pg (27.0-34.0) 10/29/19 00:54 MCHC 33.9 g/dL (33.0-35.0) 10/29/19 00:54 RDW 14.3 % (11.6-16.5) 10/29/19 00:54 Plt Count 212 X10^3/uL (150.0-450.0) 10/29/19 00:54 Plt Count Comment Adequate (ADEQUATE) 10/29/19 00:54 MPV 7.3 fL (7.4-11.0) L 10/29/19 00:54 Neut % (Auto) 79.9 % (42.0-75.0) H 10/29/19 00:54 Lymph % (Auto) 9.3 % (21.0-51.0) L 10/29/19 00:54 [place] % (Auto) 9.6 % (0.0-13.0) 10/29/19 00:54 Eos % (Auto) 0.1 % (0.9-2.9) L 10/29/19 00:54 Baso % (Auto) 1.1 % (0.2-1.0) H 10/29/19 00:54 Neut # (Auto) 5.5 x10^3/uL (2.2-4.8) H 10/29/19 00:54 Lymph # (Auto) 0.6 X10^3/uL (1.3-2.9) L 10/29/19 00:54 [place] # (Auto) 0.7 x10^3/uL (0.3-0.8) 10/29/19 00:54 Eos # (Auto) 0.0 x10^3/uL (0.0-0.2) 10/29/19 00:54 Baso # (Auto) 0.1 X10^3/uL (0.0-0.1) 10/29/19 00:54 Absolute Nucleated RBC 0.1 /100WBC 10/29/19 00:54 Total Counted 100 10/29/19 00:54 Neutrophils % (Manual) 59 % (39-76) 10/29/19 00:54 Band Neutrophils % 15 % (0-10) H 10/29/19 00:54 Lymphocytes % (Manual) 15 % (13-43) 10/29/19 00:54 Monocytes % (Manual) 6 % (4-9) 10/29/19 00:54 Metamyelocytes % 3 10/29/19 00:54 Myelocytes % 2 10/29/19 00:54 Plt Morphology Comment Normal (NORMAL) 10/29/19 00:54 RBC Morphology Normal (NORMAL) 10/29/19 00:54 Sodium 137 mmol/L (136-145) 10/29/19 00:54 Corrected Sodium TNP 10/29/19 00:54 Potassium 3.1 mmol/L (3.5-5.1) L 10/29/19 00:54 Chloride 102 mmol/L (98-107) 10/29/19 00:54 Carbon Dioxide 20.7 mmol/L (21-32) L 10/29/19 00:54 BUN 18 mg/dL (7-18) 10/29/19 00:54 Creatinine 1.12 mg/dL (0.70-1.30) 10/29/19 00:54 Est GFR (MDRD) Af Amer > 60 (>60) 10/29/19 00:54 Est GFR (MDRD) Non-Af > 60 (>60) 10/29/19 00:54 Glucose 98 mg/dL (65-99) 10/29/19 00:54 Lactic Acid 3.2 mmol/L (0.4-2.0) H 10/29/19 00:54 Calcium 8.2 mg/dL (8.5-10.1) L 10/29/19 00:54 Corrected Calcium 9.2 mg/dL (8.5-10.1) 10/29/19 00:54 Total Bilirubin 0.40 mg/dL (0.2-1.0) 10/29/19 00:54 AST 26 Units/L (15-37) 10/29/19 00:54 ALT 18 Units/L (12-78) 10/29/19 00:54 Alkaline Phosphatase 123 Units/L (46-116) H 10/29/19 00:54 Total Protein 7.9 g/dL (6.4-8.2) 10/29/19 00:54 Albumin 2.7 g/dL (3.4-5.0) L 10/29/19 00:54 Globulin 5.2 g/dL (2.5-4.5) H 10/29/19 00:54 Albumin/Globulin Ratio 0.5 Ratio (1.1-2.1) L 10/29/19 00:54 Amylase 22 Units/L (25-115) L 10/29/19 00:54 Lipase 47 Units/L (73-393) L 10/29/19 00:54 Specimen Type Catherized urine 10/29/19 06:08 Urine Color Dark yellow (YELLOW) 10/29/19 06:08 Urine Appearance Slightly hazy (CLEAR) 10/29/19 06:08 Urine pH 6.0 (5.0 - 8.0) 10/29/19 06:08 Ur Specific [place] 1.015 (1.000-1.030) 10/29/19 06:08 Urine Protein 2+ (NEGATIVE) 10/29/19 06:08 Urine Glucose (UA) Negative (NEGATIVE) 10/29/19 06:08 Urine Ketones Negative (NEGATIVE) 10/29/19 06:08 Urine Occult Blood 2+ (NEGATIVE) 10/29/19 06:08 Urine Nitrite Positive (NEGATIVE) 10/29/19 06:08 Urine Bilirubin Negative (NEGATIVE) 10/29/19 06:08 Urine Urobilinogen Normal (NORMAL) 10/29/19 06:08 Ur Leukocyte Esterase Negative (NEGATIVE) 10/29/19 06:08 Urine RBC 3-5 /HPF (0-3) A 10/29/19 06:08 Urine WBC 5-10 /HPF (0-5) A 10/29/19 06:08 Ur Squamous Epith Cells Rare /HPF (NEGATIVE) 10/29/19 06:08 Ur Renal Epithelial Cell Rare /HPF (NEGATIVE) 10/29/19 06:08 Urine Bacteria 1+ /HPF (NEGATIVE) 10/29/19 06:08 Urine Mucus Few /HPF (NEGATIVE) 10/29/19 06:08 Ur Culture Indicated? Yes/culture set up 10/29/19 06:08 Urine Opiates Screen Negative (NEG=<300) 10/29/19 06:09 Urine Methadone Screen Negative (NEG=<300) 10/29/19 06:09 Ur Barbiturates Screen Negative (NEG=<200) 10/29/19 06:09 Ur Phencyclidine Scrn Negative (NEG=<25) 10/29/19 06:09 Ur Amphetamines Screen Positive (NEG=<1000) 10/29/19 06:09 U Benzodiazepines Scrn Negative (NEG=<200) 10/29/19 06:09 Urine Cocaine Screen Negative (NEG=<300) 10/29/19 06:09 U Marijuana (THC) Screen Negative (NEG=<50) 10/29/19 06:09 SARS-CoV-2 (PCR) Negative (NEGATIVE) 10/29/19 11:20 <MARLY AMARO - Last Filed: 11/25/19 10:16> Labs Reviewed Laboratory: 10/29/19 06:08 Urine,Catheterized Urine Culture - Final Staphylococcus Aureus 10/29/19 06:58 Blood Blood Culture - Final Staphylococcus Aureus 10/29/19 06:46 Blood Blood Culture - Final Staphylococcus Aureus WBC 6.9 X10^3/uL (3.6-10.0) 10/29/19 00:54 RBC 4.42 X10^6/uL (4.7-6.0) L 10/29/19 00:54 Hgb 12.8 g/dL (13.5-18.0) L 10/29/19 00:54 Hct 37.7 % (42.0-54.0) L 10/29/19 00:54 MCV 85.2 fL (80.0-100.0) 10/29/19 00:54 MCH 28.9 pg (27.0-34.0) 10/29/19 00:54 MCHC 33.9 g/dL (33.0-35.0) 10/29/19 00:54 RDW 14.3 % (11.6-16.5) 10/29/19 00:54 Plt Count 212 X10^3/uL (150.0-450.0) 10/29/19 00:54 Plt Count Comment Adequate (ADEQUATE) 10/29/19 00:54 MPV 7.3 fL (7.4-11.0) L 10/29/19 00:54 Neut % (Auto) 79.9 % (42.0-75.0) H 10/29/19 00:54 Lymph % (Auto) 9.3 % (21.0-51.0) L 10/29/19 00:54 [place] % (Auto) 9.6 % (0.0-13.0) 10/29/19 00:54 Eos % (Auto) 0.1 % (0.9-2.9) L 10/29/19 00:54 Baso % (Auto) 1.1 % (0.2-1.0) H 10/29/19 00:54 Neut # (Auto) 5.5 x10^3/uL (2.2-4.8) H 10/29/19 00:54 Lymph # (Auto) 0.6 X10^3/uL (1.3-2.9) L 10/29/19 00:54 [place] # (Auto) 0.7 x10^3/uL (0.3-0.8) 10/29/19 00:54 Eos # (Auto) 0.0 x10^3/uL (0.0-0.2) 10/29/19 00:54 Baso # (Auto) 0.1 X10^3/uL (0.0-0.1) 10/29/19 00:54 Absolute Nucleated RBC 0.1 /100WBC 10/29/19 00:54 Total Counted 100 10/29/19 00:54 Neutrophils % (Manual) 59 % (39-76) 10/29/19 00:54 Band Neutrophils % 15 % (0-10) H 10/29/19 00:54 Lymphocytes % (Manual) 15 % (13-43) 10/29/19 00:54 Monocytes % (Manual) 6 % (4-9) 10/29/19 00:54 Metamyelocytes % 3 10/29/19 00:54 Myelocytes % 2 10/29/19 00:54 Plt Morphology Comment Normal (NORMAL) 10/29/19 00:54 RBC Morphology Normal (NORMAL) 10/29/19 00:54 Sodium 137 mmol/L (136-145) 10/29/19 00:54 Corrected Sodium TNP 10/29/19 00:54 Potassium 3.1 mmol/L (3.5-5.1) L 10/29/19 00:54 Chloride 102 mmol/L (98-107) 10/29/19 00:54 Carbon Dioxide 20.7 mmol/L (21-32) L 10/29/19 00:54 BUN 18 mg/dL (7-18) 10/29/19 00:54 Creatinine 1.12 mg/dL (0.70-1.30) 10/29/19 00:54 Est GFR (MDRD) Af Amer > 60 (>60) 10/29/19 00:54 Est GFR (MDRD) Non-Af > 60 (>60) 10/29/19 00:54 Glucose 98 mg/dL (65-99) 10/29/19 00:54 Lactic Acid 3.2 mmol/L (0.4-2.0) H 10/29/19 00:54 Calcium 8.2 mg/dL (8.5-10.1) L 10/29/19 00:54 Corrected Calcium 9.2 mg/dL (8.5-10.1) 10/29/19 00:54 Total Bilirubin 0.40 mg/dL (0.2-1.0) 10/29/19 00:54 AST 26 Units/L (15-37) 10/29/19 00:54 ALT 18 Units/L (12-78) 10/29/19 00:54 Alkaline Phosphatase 123 Units/L (46-116) H 10/29/19 00:54 Total Protein 7.9 g/dL (6.4-8.2) 10/29/19 00:54 Albumin 2.7 g/dL (3.4-5.0) L 10/29/19 00:54 Globulin 5.2 g/dL (2.5-4.5) H 10/29/19 00:54 Albumin/Globulin Ratio 0.5 Ratio (1.1-2.1) L 10/29/19 00:54 Amylase 22 Units/L (25-115) L 10/29/19 00:54 Lipase 47 Units/L (73-393) L 10/29/19 00:54 Specimen Type Catherized urine 10/29/19 06:08 Urine Color Dark yellow (YELLOW) 10/29/19 06:08 Urine Appearance Slightly hazy (CLEAR) 10/29/19 06:08 Urine pH 6.0 (5.0 - 8.0) 10/29/19 06:08 Ur Specific [place] 1.015 (1.000-1.030) 10/29/19 06:08 Urine Protein 2+ (NEGATIVE) 10/29/19 06:08 Urine Glucose (UA) Negative (NEGATIVE) 10/29/19 06:08 Urine Ketones Negative (NEGATIVE) 10/29/19 06:08 Urine Occult Blood 2+ (NEGATIVE) 10/29/19 06:08 Urine Nitrite Positive (NEGATIVE) 10/29/19 06:08 Urine Bilirubin Negative (NEGATIVE) 10/29/19 06:08 Urine Urobilinogen Normal (NORMAL) 10/29/19 06:08 Ur Leukocyte Esterase Negative (NEGATIVE) 10/29/19 06:08 Urine RBC 3-5 /HPF (0-3) A 10/29/19 06:08 Urine WBC 5-10 /HPF (0-5) A 10/29/19 06:08 Ur Squamous Epith Cells Rare /HPF (NEGATIVE) 10/29/19 06:08 Ur Renal Epithelial Cell Rare /HPF (NEGATIVE) 10/29/19 06:08 Urine Bacteria 1+ /HPF (NEGATIVE) 10/29/19 06:08 Urine Mucus Few /HPF (NEGATIVE) 10/29/19 06:08 Ur Culture Indicated? Yes/culture set up 10/29/19 06:08 Urine Opiates Screen Negative (NEG=<300) 10/29/19 06:09 Urine Methadone Screen Negative (NEG=<300) 10/29/19 06:09 Ur Barbiturates Screen Negative (NEG=<200) 10/29/19 06:09 Ur Phencyclidine Scrn Negative (NEG=<25) 10/29/19 06:09 Ur Amphetamines Screen Positive (NEG=<1000) 10/29/19 06:09 U Benzodiazepines Scrn Negative (NEG=<200) 10/29/19 06:09 Urine Cocaine Screen Negative (NEG=<300) 10/29/19 06:09 U Marijuana (THC) Screen Negative (NEG=<50) 10/29/19 06:09 SARS-CoV-2 (PCR) Negative (NEGATIVE) 10/29/19 11:20 Opioid <BLANCO CONWAY - Last Filed: 10/29/19 18:16> Opioid Risk Tool Total: 0 Total Score Risk Category: Low Risk Copyright: Eliezer ROBERTS predicting aberrant behaviors <ADEWUNMI SOBOWALE - Last Filed: 11/25/19 10:16> Opioid Risk Tool Age ([place]anco box if 16-45): No History of Preadolescent Sexual Abuse: No Total: 0 Total Score Risk Category: Low Risk <BLANCO CONWAY - Last Filed: 10/29/19 18:16> Diagnosis Discharge Problem: Current recreational drug use, Acute hypokalemia, HIV disease, Agitation, Acute UTI, Carbuncle and furuncle of buttock Instructions Instructions: Substance Use Disorder Forms: Excuse From Work
[2019-10-30] MEDS ORDERED: PHARMACY COMMENT IV NR (20:30)
== END 2019-10-29 19:30 | disposition left against medical advice (07) ==
LOC: ER 23:34 → MED/SURG 23:34
PROVIDERS: ADMIT Internal Medicine; ATTEND Internal Medicine
DX: Z11.59 Encounter for screening for other viral diseases; R45.1 Restlessness and agitation; I10 Essential (primary) hypertension; F15.10 Other stimulant abuse, uncomplicated; N39.0 Urinary tract infection, site not specified; B20 Human immunodeficiency virus [HIV] disease; R00.0 Tachycardia, unspecified; J44.9 Chronic obstructive pulmonary disease, unspecified; L02.32 Furuncle of buttock; Z53.29 Procedure and treatment not carried out because of patient's decision for other reasons; Z78.1 Physical restraint status; L02.33 Carbuncle of buttock; E87.6 Hypokalemia
CPT/HCPCS: 36415; 51702; 71010; 71045; 80053; 80307; 81001; 82150; 83605; 83690; 85025; 87040; 87077; 87086; 87088; 87186; 87635; 96360; 96361; 96365; 96367; 96372; 96374; 96375; 99284; A4222; G0378; J1630; J1956; J2060; J3370; J7030; J7040; J7060

== ENCOUNTER 2019-10-30 11:11 | Inpatient (IN) ==
[2019-10-30] MEDS ORDERED: ROCEPHIN VIAL 1 GRAM IM ONE (11:30)
[2019-10-30] MEDS ORDERED: ZOFRAN INJ 4 MG VIAL IVP ONE (11:30)
[2019-10-30] MEDS ORDERED: NS 100 ML IV + SPIKE MINIBAG* 100 ML IV ONE (11:40)
[2019-10-30] MEDS ORDERED: ROCEPHIN VIAL 1 GRAM ONE (11:40)
[2019-10-30] MEDS ORDERED: NS 1000 ML 1,000 ML ONE ×2 (11:42→16:13)
[2019-10-30] MEDS ORDERED: ZOFRAN INJ 4 MG VIAL ONE (11:44)
[2019-10-30] MEDS ORDERED: NS 1000 ML 1,000 ML IV SCH (12:00)
[2019-10-30] MEDS: ROCEPHIN VIAL 1 GRAM 1 G in NS 100 ML IV + SPIKE MINIBAG* 100 ML IV SCH (12:22)
[2019-10-30 12:24] LABS: BLOOD UREA NITROGEN 14 mg/dL (7-18); CALCIUM 8.3 mg/dL (8.5-10.1); CHLORIDE 99 mmol/L (98-107); CREATININE 0.83 mg/dL (0.70-1.30); SODIUM 133 mmol/L (136-145); eGFR NON BLACK RACES > 60 (>60)
[2019-10-30 12:26] LABS: BASOPHILS % (AUTO) 0.6 % (0.2-1.0); EOSINOPHILS % (AUTO) 0.1 % (0.9-2.9); HEMATOCRIT 35.5 % (42.0-54.0); HEMOGLOBIN 12.2 g/dL (13.5-18.0); LYMPHOCYTES # (AUTO) 0.3 X10^3/uL (1.3-2.9); LYMPHOCYTES % (AUTO) 7.2 % (21.0-51.0); MEAN CORPUSCULAR HEMOGLOBIN 29.1 pg (27.0-34.0); MEAN CORPUSCULAR HGB CONC 34.2 g/dL (33.0-35.0); MEAN CORPUSCULAR VOLUME 85.1 fL (80.0-100.0); MEAN PLATELET VOLUME 7.3 fL (7.4-11.0); MONOCYTES # (AUTO) 0.4 x10^3/uL (0.3-0.8); MONOCYTES % (AUTO) 8.7 % (0.0-13.0); NEUTROPHILS # (AUTO) 3.7 x10^3/uL (2.2-4.8); NEUTROPHILS % (AUTO) 83.4 % (42.0-75.0); PLATELET COUNT 194 X10^3/uL (150.0-450.0); RED BLOOD COUNT 4.17 X10^6/uL (4.7-6.0); RED CELL DISTRIBUTION WIDTH 14.5 % (11.6-16.5); WHITE BLOOD COUNT 4.4 X10^3/uL (3.6-10.0)
[2019-10-30 12:28] LABS: ALANINE AMINOTRANSFERASE 23 Units/L (12-78); ALBUMIN 2.3 g/dL (3.4-5.0); ALKALINE PHOSPHATASE 128 Units/L (46-116); ASPARTATE AMINO TRANSFERASE 39 Units/L (15-37); COR CA(FOR HYPOALB) 9.7 mg/dL (8.5-10.1); TOTAL PROTEIN 7.1 g/dL (6.4-8.2)
--- NOTE | 2019-10-30 12:29 | DR.N/VMALE ---
HPI Time Seen Time Seen by Provider: 10/30/19 11:22 Complaints Chief Complaint Doctors Comments: pt seen here yesterday diagnosed with Sepsis and UTI he signed out AMA Now called 911 because of general malaise n/v PMH PMH Past Medical History: Angina, Anxiety, COPD, Depression, Migraines, Headaches, Hypertension and Seizures Past Surgical History: Yes Surgical History: Other Family History Family Medical History: Diabetes Mellitus, Cancer and [place] Social History Do you use any recreational Drugs:: Yes ROS Review of Systems Constitutional: Diaphoresis, Fever, Malaise, Weakness, Irritable and Fatigue Eyes: No Symptoms Reported ENTM: No Symptoms Reported Respiratoy: No Symptoms Reported Cardiovascular: No Symptoms Reported Gastrointestinal/Abdominal: Nausea and Vomiting Genitourinary: Dysuria Neurological: No Symptoms Reported Musculoskeletal: Muscle Pain Integumentary: No Symptoms Reported Hematologic/Lymphatic: No Symptoms Reported Endocrine: No Symptoms Reported Psychiatric: No Symptoms Reported All Other Systems: Reviewed and Negative PE Vital Signs Vitals: Temperature 98.6 F Pulse Rate 75 Respiratory Rate 49 Blood Pressure [Right Arm] 127/80 Blood Pressure 151/89 O2 Sat by Pulse Oximetry 98 General Limitations: No Limitations General Appearance: Alert, Anxious and Other (feels jill and uncomfortable ) Head Head Exam: Normal Inspection and Atraumatic Eyes Eye exam: Normal Appearance, PERRL and EOMI ENT ENT Exam: Normal Exam, Normal Oropharynx and Normal External Ear Exam Neck Neck Exam: Normal Inspection, Full ROM and Trachea Midline Chest Chest Inspection: Normal Inspection and Symmetric Chest Wall Rise; negative Tenderness Respiratory Respiratory Exam: Normal Lung Sounds Bilat; negative Respiratory Distress Respiratory Exam: Bilateral: Clear to Auscultation Cardiovascular Cardiovascular Exam: Regular Rate, Normal Rhythm and Normal Heart Sounds Abdominal Exam Abdominal Exam: Normal Inspection, Normal Bowel Sounds and Soft Rectal Rectal Exam: Deferred Exam: Male: Deferred Extremities Extremities Exam: Normal Inspection and Full ROM; negative Tenderness, Normal Capillary Refill, Edema and Joint Swelling Back Back Exam: Normal Inspection and Full ROM; negative Tenderness, (R) CVA Tenderness, (L) CVA Tenderness, Muscle Spasm and Vertebral Tenderness Neurologic Neurological Exam: Alert, Oriented X3 and Normal Gait; negative Motor Sensory Deficit Psychiatric Psychiatric Exam: Agitated Skin Skin Exam: Warm and Rash (pt with generalized rash with shallow ulceraions ) MDM Differential Diagnosis Differential Diagnosis: Considerations may Include:: Cholecystitis, Diabetes/DKA, Gastroenteritis, Hepatitis, Pancreatitis, Urinary Obstruction and Urinary Tract Infection ROR Labs Reviewed Laboratory Results Reviewed?: Yes Result Diagrams: 11/01/19 05:42 11/01/19 05:42 Laboratory: 10/30/19 11:53 Blood Blood Culture - Preliminary 10/30/19 11:41 Blood Blood Culture - Preliminary WBC 4.4 X10^3/uL (3.6-10.0) 10/30/19 11:41 RBC 4.17 X10^6/uL (4.7-6.0) L 10/30/19 11:41 Hgb 12.2 g/dL (13.5-18.0) L 10/30/19 11:41 Hct 35.5 % (42.0-54.0) L 10/30/19 11:41 MCV 85.1 fL (80.0-100.0) 10/30/19 11:41 MCH 29.1 pg (27.0-34.0) 10/30/19 11:41 MCHC 34.2 g/dL (33.0-35.0) 10/30/19 11:41 RDW 14.5 % (11.6-16.5) 10/30/19 11:41 Plt Count 194 X10^3/uL (150.0-450.0) 10/30/19 11:41 Plt Count Comment Adequate (ADEQUATE) 10/30/19 11:41 MPV 7.3 fL (7.4-11.0) L 10/30/19 11:41 Neut % (Auto) 83.4 % (42.0-75.0) H 10/30/19 11:41 Lymph % (Auto) 7.2 % (21.0-51.0) L 10/30/19 11:41 [place] % (Auto) 8.7 % (0.0-13.0) 10/30/19 11:41 Eos % (Auto) 0.1 % (0.9-2.9) L 10/30/19 11:41 Baso % (Auto) 0.6 % (0.2-1.0) 10/30/19 11:41 Neut # (Auto) 3.7 x10^3/uL (2.2-4.8) 10/30/19 11:41 Lymph # (Auto) 0.3 X10^3/uL (1.3-2.9) L 10/30/19 11:41 [place] # (Auto) 0.4 x10^3/uL (0.3-0.8) 10/30/19 11:41 Eos # (Auto) 0.0 x10^3/uL (0.0-0.2) 10/30/19 11:41 Baso # (Auto) 0.0 X10^3/uL (0.0-0.1) 10/30/19 11:41 Absolute Nucleated RBC 0.2 /100WBC 10/30/19 11:41 Total Counted 100 10/30/19 11:41 Neutrophils % (Manual) 70 % (39-76) 10/30/19 11:41 Band Neutrophils % 12 % (0-10) H 10/30/19 11:41 Lymphocytes % (Manual) 14 % (13-43) 10/30/19 11:41 Monocytes % (Manual) 4 % (4-9) 10/30/19 11:41 Plt Morphology Comment Normal (NORMAL) 10/30/19 11:41 RBC Morphology Normal (NORMAL) 10/30/19 11:41 Sodium 133 mmol/L (136-145) L 10/30/19 11:41 Corrected Sodium TNP 10/30/19 11:41 Potassium 2.7 mmol/L (3.5-5.1) L* 10/30/19 11:41 Chloride 99 mmol/L (98-107) 10/30/19 11:41 Carbon Dioxide 22.0 mmol/L (21-32) 10/30/19 11:41 BUN 14 mg/dL (7-18) 10/30/19 11:41 Creatinine 0.83 mg/dL (0.70-1.30) 10/30/19 11:41 Est GFR (MDRD) Af Amer > 60 (>60) 10/30/19 11:41 Est GFR (MDRD) Non-Af > 60 (>60) 10/30/19 11:41 Glucose 107 mg/dL (65-99) H 10/30/19 11:41 Lactic Acid 1.2 mmol/L (0.4-2.0) 10/30/19 11:41 Calcium 8.3 mg/dL (8.5-10.1) L 10/30/19 11:41 Corrected Calcium 9.7 mg/dL (8.5-10.1) 10/30/19 11:41 Magnesium 1.7 mg/dL (1.7-2.9) 10/30/19 11:41 Total Bilirubin 0.60 mg/dL (0.2-1.0) 10/30/19 11:41 AST 39 Units/L (15-37) H 10/30/19 11:41 ALT 23 Units/L (12-78) 10/30/19 11:41 Alkaline Phosphatase 128 Units/L (46-116) H 10/30/19 11:41 Total Protein 7.1 g/dL (6.4-8.2) 10/30/19 11:41 Albumin 2.3 g/dL (3.4-5.0) L 10/30/19 11:41 Globulin 4.8 g/dL (2.5-4.5) H 10/30/19 11:41 Albumin/Globulin Ratio 0.5 Ratio (1.1-2.1) L 10/30/19 11:41 Specimen Type Catherized urine 10/30/19 13:56 Urine Color Yellow (YELLOW) 10/30/19 13:56 Urine Appearance Clear (CLEAR) 10/30/19 13:56 Urine pH 6.5 (5.0 - 8.0) 10/30/19 13:56 Ur Specific [place] 1.010 (1.000-1.030) 10/30/19 13:56 Urine Protein 1+ (NEGATIVE) 10/30/19 13:56 Urine Glucose (UA) Negative (NEGATIVE) 10/30/19 13:56 Urine Ketones Negative (NEGATIVE) 10/30/19 13:56 Urine Occult Blood Negative (NEGATIVE) 10/30/19 13:56 Urine Nitrite Negative (NEGATIVE) 10/30/19 13:56 Urine Bilirubin Negative (NEGATIVE) 10/30/19 13:56 Urine Urobilinogen Normal (NORMAL) 10/30/19 13:56 Ur Leukocyte Esterase Negative (NEGATIVE) 10/30/19 13:56 Urine RBC None seen /HPF (0-3) 10/30/19 13:56 Urine WBC None seen /HPF (0-5) 10/30/19 13:56 Ur Squamous Epith Cells Rare /HPF (NEGATIVE) 10/30/19 13:56 Urine Bacteria Negative /HPF (NEGATIVE) 10/30/19 13:56 Ur Culture Indicated? No/not indicated 10/30/19 13:56 Opioid Opioid Risk Tool Age ([place]ik[place] box if 16-45): No History of Preadolescent Sexual Abuse: No Total: 0 Total Score Risk Category: Low Risk Copyright: Eliezer ROBERTS predicting aberrant behaviors Diagnosis Discharge Problem: Hypokalemia, Body aches, Generalized weakness Instructions Forms: Excuse From Work Patient Portal Social Distancing
[2019-10-30] MEDS ORDERED: K-RIDER 10 MEQ/NS 100 ML 10 MEQ/100 ML BAG IV ONE ×3 (12:30→14:31)
[2019-10-30] MEDS ORDERED: K-DUR TAB 20 MEQ PO ONE ×2 (12:31→13:55)
[2019-10-30 12:33] LABS: LACTIC ACID 1.2 mmol/L (0.4-2.0)
[2019-10-30 12:35] LABS: BAND NEUTROPHILS % 12 % (0-10)
[2019-10-30 12:36] LABS: PLATELET MORPHOLOGY COMMENT NORMAL (NORMAL)
[2019-10-30 14:08] LABS: BILIRUBIN,URINE NEGATIVE (NEGATIVE); BLOOD/HEMOGLOBIN,URINE NEGATIVE (NEGATIVE); GLUCOSE, URINE NEGATIVE (NEGATIVE); KETONES,URINE NEGATIVE (NEGATIVE); LEUKOCYTE ESTERASE ,URINE NEGATIVE (NEGATIVE); NITRITES,URINE NEGATIVE (NEGATIVE); PH,URINE 6.5 (5.0 - 8.0); PROTEIN,URINE 1+ (NEGATIVE); UROBILINOGEN,URINE NORMAL (NORMAL)
[2019-10-30 14:21] LABS: APPEARANCE,URINE CLEAR (CLEAR); COLOR,URINE YELLOW (YELLOW); RBC,URINE NONE SEEN /HPF (0-3)
[2019-10-30 14:22] LABS: BACTERIA,URINE NEGATIVE /HPF (NEGATIVE); SQUAMOUS EPITHELIAL CELL,UR RARE /HPF (NEGATIVE)
[2019-10-30] MEDS ORDERED: NORCO 5/325 MG TAB PO ONE (14:22)
[2019-10-30] MEDS ORDERED: NORCO 5/325 MG TAB ONE (14:36)
[2019-10-30] MEDS ORDERED: XANAX PO ONE (15:17)
[2019-10-30] MEDS ORDERED: XANAX ONE ×2 (15:17→15:18)
[2019-10-30] MEDS: NS 1000 ML 1,000 ML IV SCH (16:15)
[2019-10-30 17:39] LABS: BLOOD UREA NITROGEN 12 mg/dL (7-18); CALCIUM 8.2 mg/dL (8.5-10.1); CARBON DIOXIDE 22.1 mmol/L (21-32); CHLORIDE 102 mmol/L (98-107); CREATININE 0.77 mg/dL (0.70-1.30); SODIUM 135 mmol/L (136-145); eGFR NON BLACK RACES > 60 (>60)
[2019-10-30 17:43] VITALS: BMI 19.3
[2019-10-30] MEDS ORDERED: MAGNESIUM SULFATE 1 GRAM/100 mL PREMIX 1 G/100 ML BAG IV ONE (17:51)
[2019-10-30] MEDS: MAGNESIUM SULFATE 1 GRAM/100 mL PREMIX 1 GM/100 ML BAG IV PRN ×2 (17:57→20:58)
[2019-10-30] MEDS: K-DUR TAB 20 MEQ PO SCH (20:59)
[2019-10-31] MEDS: ZOFRAN INJ 4 MG VIAL IVP PRN ×2 (01:40→09:36)
[2019-10-31] MEDS: NS 1000 ML 1,000 ML IV SCH ×5 (04:59→22:09)
[2019-10-31 06:28] LABS: BASOPHILS % (AUTO) 0.8 % (0.2-1.0); EOSINOPHILS # (AUTO) 0.1 x10^3/uL (0.0-0.2); EOSINOPHILS % (AUTO) 3.7 % (0.9-2.9); HEMATOCRIT 35.6 % (42.0-54.0); LYMPHOCYTES # (AUTO) 0.3 X10^3/uL (1.3-2.9); LYMPHOCYTES % (AUTO) 7.7 % (21.0-51.0); MEAN CORPUSCULAR HEMOGLOBIN 28.7 pg (27.0-34.0); MEAN CORPUSCULAR HGB CONC 33.7 g/dL (33.0-35.0); MEAN CORPUSCULAR VOLUME 85.1 fL (80.0-100.0); MEAN PLATELET VOLUME 7.2 fL (7.4-11.0); MONOCYTES # (AUTO) 0.4 x10^3/uL (0.3-0.8); MONOCYTES % (AUTO) 9.1 % (0.0-13.0); NEUTROPHILS # (AUTO) 3.1 x10^3/uL (2.2-4.8); NEUTROPHILS % (AUTO) 78.7 % (42.0-75.0); PLATELET COUNT 203 X10^3/uL (150.0-450.0); RED BLOOD COUNT 4.18 X10^6/uL (4.7-6.0); RED CELL DISTRIBUTION WIDTH 14.4 % (11.6-16.5); WHITE BLOOD COUNT 3.9 X10^3/uL (3.6-10.0)
[2019-10-31 06:49] LABS: ALANINE AMINOTRANSFERASE 24 Units/L (12-78); ALBUMIN 2.1 g/dL (3.4-5.0); ALKALINE PHOSPHATASE 128 Units/L (46-116); ASPARTATE AMINO TRANSFERASE 35 Units/L (15-37); BLOOD UREA NITROGEN 13 mg/dL (7-18); CARBON DIOXIDE 20.8 mmol/L (21-32); CHLORIDE 105 mmol/L (98-107); COR CA(FOR HYPOALB) 9.5 mg/dL (8.5-10.1); CREATININE 0.84 mg/dL (0.70-1.30); MAGNESIUM 2.1 mg/dL (1.7-2.9); SODIUM 137 mmol/L (136-145); TOTAL PROTEIN 6.6 g/dL (6.4-8.2); eGFR NON BLACK RACES > 60 (>60)
[2019-10-31 07:45] LABS: METAMYELOCYTES % 2
[2019-10-31 07:46] LABS: BAND NEUTROPHILS % 15 % (0-10)
[2019-10-31 07:48] LABS: PLATELET MORPHOLOGY COMMENT NORMAL (NORMAL)
[2019-10-31] MEDS: ROCEPHIN VIAL 1 GRAM 1 G in NS 100 ML IV + SPIKE MINIBAG* 100 ML IV SCH (09:36)
[2019-10-31] MEDS: K-DUR TAB 20 MEQ PO SCH ×2 (09:36→20:16)
[2019-10-31] MEDS ORDERED: ATIVAN INJ 2 MG VIAL IVP STA (11:03)
--- NOTE | 2019-10-31 11:52 | CT ---
HISTORYAltered mental statusSTUDYBRAIN W/O [id number] axial images of the brain were obtained from the skull base to the vertex without administration of IV contrast. Dose reduction techniques including Automated Exposure Control (AEC) and adjustment of mA and kV were utilized.FINDINGSNo acute intraparenchymal hemorrhage or mass can be identified. No extra-axial fluid collections are seen. No alteration in the attenuation of the brain parenchyma can be identified to suggest acute or subacute ischemic change. The ventricular system is symmetric and nondilated. The extracranial structures appear unremarkable.IMPRESSION1. No acute intracranial process can be identified.Electronically signed by: IVÁN YEE (Oct 31, 2019 11:50:40)
[2019-10-31] MEDS ORDERED: MIRALAX POWDER (1 DOSE 17 G) ONE (12:16)
[2019-10-31] MEDS ORDERED: ATIVAN INJ 2 MG VIAL IVP ONE (13:40)
[2019-10-31] MEDS ORDERED: ATIVAN INJ 2 MG VIAL ONE (13:43)
[2019-10-31] MEDS ORDERED: XYLOCAINE 1 % (PLAIN) ONE (13:52)
[2019-10-31 16:55] LABS: RBC BODY FLUID 724 Cubic/mm; WBC BODY FLUID 197 Cubic/mm
[2019-10-31] MEDS ORDERED: D5W 250 ML IV 250 ML IV ONE (17:02)
[2019-10-31] MEDS: D5W 250 ML IV 250 ML IV ONE (17:14)
[2019-10-31] MEDS ORDERED: D5W IV SCH ×2 (18:00)
[2019-10-31] MEDS ORDERED: AMBISOME IV SCH ×2 (18:00)
[2019-10-31] MEDS: SOLU-Cortef INJ IVP SCH (18:06)
[2019-10-31] MEDS: MOTRIN TAB 800 MG PO SCH (18:09)
[2019-11-01] MEDS: NS 1000 ML 1,000 ML IV SCH ×4 (05:56→22:11)
[2019-11-01 06:44] LABS: BASOPHILS # (AUTO) 0.1 X10^3/uL (0.0-0.1); BASOPHILS % (AUTO) 1.2 % (0.2-1.0); EOSINOPHILS % (AUTO) 0.2 % (0.9-2.9); HEMATOCRIT 34.7 % (42.0-54.0); HEMOGLOBIN 11.7 g/dL (13.5-18.0); LYMPHOCYTES # (AUTO) 0.7 X10^3/uL (1.3-2.9); LYMPHOCYTES % (AUTO) 12.1 % (21.0-51.0); MEAN CORPUSCULAR HEMOGLOBIN 28.7 pg (27.0-34.0); MEAN CORPUSCULAR HGB CONC 33.9 g/dL (33.0-35.0); MEAN CORPUSCULAR VOLUME 84.7 fL (80.0-100.0); MEAN PLATELET VOLUME 7.6 fL (7.4-11.0); MONOCYTES # (AUTO) 0.4 x10^3/uL (0.3-0.8); NEUTROPHILS # (AUTO) 4.8 x10^3/uL (2.2-4.8); NEUTROPHILS % (AUTO) 79.5 % (42.0-75.0); PLATELET COUNT 206 X10^3/uL (150.0-450.0); RED BLOOD COUNT 4.09 X10^6/uL (4.7-6.0); RED CELL DISTRIBUTION WIDTH 14.3 % (11.6-16.5)
[2019-11-01 06:57] LABS: ALANINE AMINOTRANSFERASE 15 Units/L (12-78); ALKALINE PHOSPHATASE 130 Units/L (46-116); ASPARTATE AMINO TRANSFERASE 33 Units/L (15-37); BLOOD UREA NITROGEN 12 mg/dL (7-18); CALCIUM 7.7 mg/dL (8.5-10.1); CARBON DIOXIDE 20.3 mmol/L (21-32); CHLORIDE 104 mmol/L (98-107); COR CA(FOR HYPOALB) 9.3 mg/dL (8.5-10.1); CREATININE 0.75 mg/dL (0.70-1.30); SODIUM 134 mmol/L (136-145); TOTAL PROTEIN 6.3 g/dL (6.4-8.2); eGFR NON BLACK RACES > 60 (>60)
[2019-11-01 07:19] LABS: BAND NEUTROPHILS % 21 % (0-10); METAMYELOCYTES % 4; MYELOCYTES % 2
[2019-11-01 07:20] LABS: PLATELET MORPHOLOGY COMMENT NORMAL (NORMAL)
[2019-11-01] MEDS: K-DUR TAB 20 MEQ PO SCH ×2 (09:46→20:05)
[2019-11-01] MEDS: ROCEPHIN VIAL 1 GRAM 1 G in NS 100 ML IV + SPIKE MINIBAG* 100 ML IV SCH (09:47)
[2019-11-01] MEDS ORDERED: DIFLUCAN PO ONE (10:04)
[2019-11-01] MEDS: DIFLUCAN PO SCH (13:50)
[2019-11-01] MEDS ORDERED: D5W 250 ML IV 250 ML IV ONE (16:19)
[2019-11-01] MEDS: D5W 250 ML IV 250 ML IV ONE (16:50)
[2019-11-01] MEDS: DEMEROL INJ IVP PRN (16:55)
[2019-11-01] MEDS: MOTRIN TAB 800 MG PO SCH (17:07)
[2019-11-01] MEDS: SOLU-Cortef INJ IVP SCH (17:07)
[2019-11-01] MEDS: D5W IV SCH (18:01)
[2019-11-01] MEDS: AMBISOME IV SCH (18:01)
[2019-11-01] MEDS ORDERED: TYLENOL 325 MG TAB PO ONE (22:00)
[2019-11-01 22:58] LABS: BILIRUBIN,URINE NEGATIVE (NEGATIVE); BLOOD/HEMOGLOBIN,URINE NEGATIVE (NEGATIVE); GLUCOSE, URINE NEGATIVE (NEGATIVE); KETONES,URINE NEGATIVE (NEGATIVE); LEUKOCYTE ESTERASE ,URINE NEGATIVE (NEGATIVE); NITRITES,URINE NEGATIVE (NEGATIVE); PROTEIN,URINE NEGATIVE (NEGATIVE); UROBILINOGEN,URINE 1+ (NORMAL)
[2019-11-01 23:08] LABS: APPEARANCE,URINE CLEAR (CLEAR); BACTERIA,URINE NEGATIVE /HPF (NEGATIVE); COLOR,URINE YELLOW (YELLOW); RBC,URINE NONE SEEN /HPF (0-3); SQUAMOUS EPITHELIAL CELL,UR NEGATIVE /HPF (NEGATIVE)
[2019-11-02 06:00] LABS: ALANINE AMINOTRANSFERASE 23 Units/L (12-78); ALKALINE PHOSPHATASE 139 Units/L (46-116); ASPARTATE AMINO TRANSFERASE 31 Units/L (15-37); BLOOD UREA NITROGEN 15 mg/dL (7-18); CALCIUM 7.4 mg/dL (8.5-10.1); CARBON DIOXIDE 22.6 mmol/L (21-32); CHLORIDE 107 mmol/L (98-107); CREATININE 0.94 mg/dL (0.70-1.30); SODIUM 139 mmol/L (136-145); eGFR NON BLACK RACES > 60 (>60)
[2019-11-02] MEDS: NS 1000 ML 1,000 ML IV SCH ×2 (06:14→16:12)
[2019-11-02 06:25] LABS: BASOPHILS # (AUTO) 0.1 X10^3/uL (0.0-0.1); BASOPHILS % (AUTO) 1.2 % (0.2-1.0); EOSINOPHILS % (AUTO) 0.7 % (0.9-2.9); HEMATOCRIT 33.2 % (42.0-54.0); HEMOGLOBIN 11.1 g/dL (13.5-18.0); LYMPHOCYTES # (AUTO) 0.6 X10^3/uL (1.3-2.9); LYMPHOCYTES % (AUTO) 12.7 % (21.0-51.0); MEAN CORPUSCULAR HEMOGLOBIN 28.6 pg (27.0-34.0); MEAN CORPUSCULAR HGB CONC 33.5 g/dL (33.0-35.0); MEAN CORPUSCULAR VOLUME 85.4 fL (80.0-100.0); MEAN PLATELET VOLUME 8.3 fL (7.4-11.0); MONOCYTES # (AUTO) 0.2 x10^3/uL (0.3-0.8); MONOCYTES % (AUTO) 3.7 % (0.0-13.0); NEUTROPHILS # (AUTO) 3.7 x10^3/uL (2.2-4.8); NEUTROPHILS % (AUTO) 81.7 % (42.0-75.0); PLATELET COUNT 185 X10^3/uL (150.0-450.0); RED BLOOD COUNT 3.89 X10^6/uL (4.7-6.0); RED CELL DISTRIBUTION WIDTH 14.4 % (11.6-16.5)
[2019-11-02 07:54] LABS: WHITE BLOOD COUNT 6.2 X10^3/uL (3.6-10.0)
[2019-11-02 07:55] LABS: BAND NEUTROPHILS % 9 % (0-10); PLATELET MORPHOLOGY COMMENT NORMAL (NORMAL)
[2019-11-02] MEDS: DIFLUCAN PO SCH (08:24)
[2019-11-02] MEDS: ROCEPHIN VIAL 1 GRAM 1 G in NS 100 ML IV + SPIKE MINIBAG* 100 ML IV SCH (08:24)
[2019-11-02] MEDS: K-DUR TAB 20 MEQ PO SCH ×2 (08:24→20:15)
[2019-11-02] MEDS: MILK OF MAGNESIA PO SCH ×2 (11:18→20:16)
[2019-11-02] MEDS ORDERED: BACTROBAN TOPICAL OINT ONE (11:26)
[2019-11-02] MEDS: BACTROBAN TOPICAL OINT TOP SCH ×3 (11:28→21:34)
[2019-11-02] MEDS ORDERED: HYDROGEN PEROXIDE 3% ONE (11:34)
[2019-11-02] MEDS ORDERED: FLUCYTOSINE PO SCH (16:00)
[2019-11-02] MEDS: MOTRIN TAB 800 MG PO SCH (17:30)
[2019-11-02] MEDS: DEMEROL INJ IVP PRN (17:30)
[2019-11-02] MEDS: SOLU-Cortef INJ IVP SCH (17:30)
[2019-11-02] MEDS ORDERED: D5W 250 ML IV 250 ML IV ONE (17:31)
[2019-11-02] MEDS: AMBISOME IV SCH (18:08)
[2019-11-02] MEDS: D5W IV SCH (18:08)
[2019-11-02] MEDS: TYLENOL 325 MG TAB PO PRN (20:15)
[2019-11-02] MEDS: COLACE CAP 100 MG PO SCH (20:15)
[2019-11-02] MEDS: ELAVIL PO SCH (20:15)
[2019-11-02] MEDS: RESTORIL CAP 30 MG PO PRN (20:16)
[2019-11-03] MEDS: NS 1000 ML 1,000 ML IV SCH ×3 (04:25→14:45)
[2019-11-03] MEDS: BACTROBAN TOPICAL OINT TOP SCH ×3 (05:04→23:03)
[2019-11-03 06:05] LABS: EOSINOPHILS % (AUTO) 0.7 % (0.9-2.9); HEMATOCRIT 35.2 % (42.0-54.0); HEMOGLOBIN 11.9 g/dL (13.5-18.0); LYMPHOCYTES # (AUTO) 0.4 X10^3/uL (1.3-2.9); LYMPHOCYTES % (AUTO) 11.6 % (21.0-51.0); MEAN CORPUSCULAR HEMOGLOBIN 28.7 pg (27.0-34.0); MEAN CORPUSCULAR VOLUME 84.6 fL (80.0-100.0); MEAN PLATELET VOLUME 7.7 fL (7.4-11.0); MONOCYTES # (AUTO) 0.2 x10^3/uL (0.3-0.8); MONOCYTES % (AUTO) 6.2 % (0.0-13.0); NEUTROPHILS # (AUTO) 2.8 x10^3/uL (2.2-4.8); NEUTROPHILS % (AUTO) 80.5 % (42.0-75.0); PLATELET COUNT 191 X10^3/uL (150.0-450.0); RED BLOOD COUNT 4.16 X10^6/uL (4.7-6.0); RED CELL DISTRIBUTION WIDTH 14.1 % (11.6-16.5); WHITE BLOOD COUNT 3.5 X10^3/uL (3.6-10.0)
[2019-11-03 06:25] LABS: ALANINE AMINOTRANSFERASE 20 Units/L (12-78); ALBUMIN 2.3 g/dL (3.4-5.0); ALKALINE PHOSPHATASE 153 Units/L (46-116); ASPARTATE AMINO TRANSFERASE 28 Units/L (15-37); BLOOD UREA NITROGEN 12 mg/dL (7-18); CALCIUM 7.3 mg/dL (8.5-10.1); CARBON DIOXIDE 24.3 mmol/L (21-32); CHLORIDE 104 mmol/L (98-107); COR CA(FOR HYPOALB) 8.7 mg/dL (8.5-10.1); COR NA(FOR HYPERGLY) 139 mmol/L (136-145); CREATININE 0.82 mg/dL (0.70-1.30); SODIUM 139 mmol/L (136-145); TOTAL PROTEIN 6.7 g/dL (6.4-8.2); eGFR NON BLACK RACES > 60 (>60)
[2019-11-03 07:50] LABS: BAND NEUTROPHILS % 6 % (0-10)
[2019-11-03 07:51] LABS: PLATELET MORPHOLOGY COMMENT NORMAL (NORMAL)
[2019-11-03] MEDS: DIFLUCAN PO SCH (08:24)
[2019-11-03] MEDS: MILK OF MAGNESIA PO SCH ×2 (08:24→20:53)
[2019-11-03] MEDS: K-DUR TAB 20 MEQ PO SCH ×2 (08:24→20:52)
[2019-11-03] MEDS: ROCEPHIN VIAL 1 GRAM 1 G in NS 100 ML IV + SPIKE MINIBAG* 100 ML IV SCH (08:25)
[2019-11-03] MEDS: TYLENOL 325 MG TAB PO PRN ×2 (08:29→23:04)
[2019-11-03] MEDS: MOTRIN TAB 800 MG PO SCH (18:10)
[2019-11-03] MEDS: SOLU-Cortef INJ IVP SCH (18:10)
[2019-11-03] MEDS: DEMEROL INJ IVP PRN (18:29)
[2019-11-03] MEDS: D5W IV SCH (18:45)
[2019-11-03] MEDS: AMBISOME IV SCH (18:45)
[2019-11-03] MEDS: ELAVIL PO SCH (20:52)
[2019-11-03] MEDS: COLACE CAP 100 MG PO SCH (20:52)
[2019-11-03] MEDS: RESTORIL CAP 30 MG PO PRN (20:53)
[2019-11-04] MEDS: NS 1000 ML 1,000 ML IV SCH ×2 (01:27→18:03)
[2019-11-04] MEDS: TYLENOL 325 MG TAB PO PRN (04:59)
[2019-11-04] MEDS: BACTROBAN TOPICAL OINT TOP SCH ×2 (06:06→14:08)
[2019-11-04 06:54] LABS: EOSINOPHILS # (AUTO) 0.1 x10^3/uL (0.0-0.2); EOSINOPHILS % (AUTO) 1.7 % (0.9-2.9); HEMOGLOBIN 12.3 g/dL (13.5-18.0); LYMPHOCYTES # (AUTO) 0.6 X10^3/uL (1.3-2.9); LYMPHOCYTES % (AUTO) 12.2 % (21.0-51.0); MEAN CORPUSCULAR HEMOGLOBIN 28.9 pg (27.0-34.0); MEAN PLATELET VOLUME 7.3 fL (7.4-11.0); MONOCYTES # (AUTO) 0.3 x10^3/uL (0.3-0.8); MONOCYTES % (AUTO) 6.1 % (0.0-13.0); NEUTROPHILS # (AUTO) 3.7 x10^3/uL (2.2-4.8); PLATELET COUNT 226 X10^3/uL (150.0-450.0); RED BLOOD COUNT 4.24 X10^6/uL (4.7-6.0); RED CELL DISTRIBUTION WIDTH 14.3 % (11.6-16.5); WHITE BLOOD COUNT 4.7 X10^3/uL (3.6-10.0)
[2019-11-04 07:07] LABS: ALANINE AMINOTRANSFERASE 24 Units/L (12-78); ALBUMIN 2.3 g/dL (3.4-5.0); ALKALINE PHOSPHATASE 148 Units/L (46-116); ASPARTATE AMINO TRANSFERASE 27 Units/L (15-37); BLOOD UREA NITROGEN 15 mg/dL (7-18); CALCIUM 7.5 mg/dL (8.5-10.1); CARBON DIOXIDE 26.5 mmol/L (21-32); CHLORIDE 103 mmol/L (98-107); COR CA(FOR HYPOALB) 8.9 mg/dL (8.5-10.1); CREATININE 0.94 mg/dL (0.70-1.30); SODIUM 138 mmol/L (136-145); TOTAL PROTEIN 6.6 g/dL (6.4-8.2); eGFR NON BLACK RACES > 60 (>60)
[2019-11-04 07:59] LABS: BAND NEUTROPHILS % 8 % (0-10); PLATELET MORPHOLOGY COMMENT NORMAL (NORMAL)
[2019-11-04] MEDS: MILK OF MAGNESIA PO SCH (09:14)
[2019-11-04] MEDS: DIFLUCAN PO SCH (09:14)
[2019-11-04] MEDS: K-DUR TAB 20 MEQ PO SCH (09:14)
[2019-11-04] MEDS: ROCEPHIN VIAL 1 GRAM 1 G in NS 100 ML IV + SPIKE MINIBAG* 100 ML IV SCH (09:15)
[2019-11-04] MEDS: DEMEROL INJ IVP PRN (09:15)
[2019-11-04] MEDS ORDERED: D5W 250 ML IV 250 ML IV ONE (14:11)
[2019-11-04] MEDS: MOTRIN TAB 800 MG PO SCH ×2 (14:31→18:07)
[2019-11-04] MEDS: SOLU-Cortef INJ IVP SCH ×2 (14:32→18:08)
[2019-11-04] MEDS: AMBISOME IV SCH ×2 (15:05→18:08)
[2019-11-04] MEDS: D5W IV SCH ×2 (15:05→18:08)
[2019-11-04 17:11] VITALS: BP 127/83
== END 2019-11-04 19:25 | disposition home or self-care (01) | DRG 98 ==
LOC: ER 11:11 → MED/SURG 11:11 → OBSVTOIN 14:30 → MED/SURG 15:26
PROVIDERS: ADMIT Obstetrics & Gynecology Obstetrics; ATTEND Obstetrics & Gynecology Obstetrics